=== PATIENT | female | born 1995 | race Caucasian/White ===

== ENCOUNTER 2016-04-26 04:30 | Inpatient (IN) | payer MEDICAID ==
--- NOTE | 2016-04-26 06:06 | L&D General Admission ---
General Admit Datetime Report Generated by CPN: 04/26/2016 04:45 INFORMATION Patient Age: 20 (04/25/2016 16:49:QS system process) EDC: 04/19/2016 00:00 (04/26/2016 03:15:Nhi Ayala RN) : 1 (04/26/2016 03:15:Nhi Ayala RN) Para: 0 (04/26/2016 03:15:Nhi Ayala RN) Term: 0 (04/26/2016 03:15:Nhi Ayala RN) : 0 (04/26/2016 03:15:Nhi Ayala RN) Spontaneous Abortions: 0 (04/26/2016 03:15:Nhi Ayala RN) Induced Abortions: 0 (04/26/2016 03:15:Nhi Ayala RN) Livin (04/26/2016 03:15:Nhi Ayala RN) Baby, Number in Womb: 1 (04/26/2016 03:15:Nhi Ayala RN) DEMOGRAPHICS Address: [address] [place] [id number] (04/25/2016 16:49:QS system process) Zipcode: [id number] (04/25/2016 16:49:QS system process) Home (04/25/2016 16:49:QS system process) SSN: [id number] (04/25/2016 16:49:QS system process) Next of Kin Name: YOSVANY VENTURA (04/25/2016 16:49:QS system process) Next of Kin (04/25/2016 16:49:QS system process) Next of Kin Relationship: OR (04/25/2016 16:49:QS system process) Date of : 1995 (04/25/2016 16:49:QS system process) Marital Status: Single (04/25/2016 16:49:QS system process) Sex: Female (04/25/2016 16:49:QS system process) Race: (04/25/2016 16:49:QS system process) Ethnicity: Non- or (04/25/2016 16:49:QS system process) LABS Blood Type: O Positive (04/26/2016 03:15:Nhi Ayala RN) Antibody Screen: negative (04/26/2016 03:15:Nhi Ayala RN) Group Beta Strep: negative (04/26/2016 03:15:Nhi Ayala RN) Gonorrhea: Negative (04/26/2016 03:15:Nhi Ayala RN) Chlamydia: Negative (04/26/2016 03:15:Nhi Ayala RN) RPR/VDRL: Nonreactive (04/26/2016 03:15:Nhi Ayala RN) HIV Results: nonreactive (04/26/2016 03:15:Nhi Ayala RN) Hepatitis B: Negative (04/26/2016 03:15:Nhi Ayala RN) Rubella: Immune (04/26/2016 03:15:Nhi Ayala RN) Varicella: Non Susceptible (04/26/2016 03:15:Nhi Ayala RN) MEDICAL HISTORY Details of Med/Surg Hx: 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
--- NOTE | 2016-04-26 06:06 | L&D Discharge Summary ---
OB Discharge Summary Datetime Report Generated by CPN: 04/26/2016 04:45 DISCHARGE DIAGNOSIS Number of Babies in Womb: 1 Parity: 0
--- NOTE | 2016-04-26 06:24 | L&D Current Admission ---
Current Admit Datetime Report Generated by CPN: 04/26/2016 06:00 ADMISSION INFORMATION Current Admit Date/Time: 04/26/2016 05:00 (04/26/2016 05:00:Suri Rascon RN) Reason for Admission: Rupture of Membranes; Induction of Labor (04/26/2016 05:00:Suri Rascon RN) Other Reason for Admission: Pt scheduled for induction 04/26/16, SROM at 0330 (04/26/2016 05:00:Suri Rascon RN) Chief Complaint: Suspected Rupture of Membranes (04/26/2016 05:00:Suri Rascon RN) Medications During : Vitamin (04/26/2016 05:00:Suri Rascon RN) EGA per Dates: 41.0 (04/26/2016 05:00:QS system process) Admitted From: Home (04/26/2016 05:00:Suri Rascon RN) Reason for Induction: Postterm (04/26/2016 05:00:Suri Rascon RN) Records Available: Yes (04/26/2016 05:00:Suri Rascon RN) General Admission Information: Reviewed; Updated; Confirmed (04/26/2016 05:00:Suri Rascon RN) General Admission Reviewed By: Jasmin Rascon RN (04/26/2016 05:00:Suri Rascon RN) BELONGINGS/ADVANCED DIRECTIVES Other Belongings: see [facility] belongings form (04/26/2016 05:00:Suri Rascon RN) Advance Direct for Healthcare: No, and Wants No Information (04/26/2016 05:00:Suri Rascon RN) Durable Power of Extract Mixer: No (04/26/2016 05:00:Suri Rascon RN) Living Will: No (04/26/2016 05:00:Suri Rascon RN) Organ Donor: Yes (04/26/2016 05:00:Suri Rascon RN) Pt Rights Information Given: Yes (04/26/2016 05:00:Suri Rascon RN) Pt Understands Pt Rights: No (04/26/2016 05:00:Suri Rascon RN) LEARNING ASSESSMENT Knowledge Level: Understands L_D Process (04/26/2016 05:00:Suri Rascon RN) Barriers to Learning: Emotional State; Pain (04/26/2016 05:00:Suri Rascon RN) Learning Readiness: Motivated (04/26/2016 05:00:Suri Rascon RN) Learns Best By: 1 to 1 Instruction (04/26/2016 05:00:Suri Rascon RN) Learning Needs: Labor and Delivery Process; Pain Management; Symptoms to Report; Treatment Plan; Medication; Diagnosis; Nutrition; Equipment; Infant Care (04/26/2016 05:00:Suri Rascon RN) DOMESTIC VIOLANCE SCREENING Dom Viol Threatened/Hurt: No (04/26/2016 05:00:Suri Rascon RN) Hx of Abuse/Neglect past 2yrs: No (04/26/2016 05:00:Suri Rascon RN) Feel Unsafe Going Home: No (04/26/2016 05:00:Suri Rascon RN) Addt'l Observ Indicating Abuse: No (04/26/2016 05:00:Suri Rascon RN) Reason Unable to Complete Screen: N/A, Screen Completed (04/26/2016 05:00:Suri Rascon RN) Considered Personal Harm/Suicide: No (04/26/2016 05:00:Suri Rascon RN) NUTRITIONAL/FUNCTIONAL SCREENING Problem with Appetite >5 Days: No (04/26/2016 05:00:Suri Rascon RN) Chew/Swallow Difficulties: No (04/26/2016 05:00:Suri Rascon RN) Inappropriate Wt Gain/Loss: No (04/26/2016 05:00:Suri Rascon RN) Presence Skin Breakdown/Ulcer: No (04/26/2016 05:00:Suri Rascon RN) Special Diet: No (04/26/2016 05:00:Suri Rascon RN) Pt Requests Advertising Strategist Visit: No (04/26/2016 05:00:Suri Rascon RN) Hx of Any of the Following?: N/A (04/26/2016 05:00:Suri Rascon RN) New Diagnosis of: N/A (04/26/2016 05:00:Suri Rascon RN) Requires Assist w/Ambulation: No (04/26/2016 05:00:Suri Rascon RN) Uses Assist Device to Ambulate: No (04/26/2016 05:00:Suri Rascon RN) Pt Requires Help w/ADL's: No (04/26/2016 05:00:Suri Rascon RN)
--- NOTE | 2016-04-26 06:24 | L&D General Admission ---
General Admit Datetime Report Generated by CPN: 04/26/2016 06:00 INFORMATION Patient Age: 20 (04/25/2016 16:49:QS system process) EDC: 04/19/2016 00:00 (04/26/2016 03:15:Nhi Ayala RN) : 1 (04/26/2016 03:15:Nhi Ayala RN) Para: 0 (04/26/2016 03:15:Nhi Ayala RN) Term: 0 (04/26/2016 03:15:Nhi Ayala RN) : 0 (04/26/2016 03:15:Nhi Ayala RN) Spontaneous Abortions: 0 (04/26/2016 03:15:Nhi Ayala RN) Induced Abortions: 0 (04/26/2016 03:15:Nhi Ayala RN) Livin (04/26/2016 03:15:Nhi Ayala RN) Baby, Number in Womb: 1 (04/26/2016 03:15:Nhi Ayala RN) CARE Primary Patient Navigator: [employer] (04/26/2016 03:15:Suri Rascon RN) Adequate Care: Yes (04/26/2016 03:15:Suri Rascon RN) Prepregnancy Weight (lb): 150 (04/26/2016 03:15:Suri Rascon RN) Prepregnancy Weight (kg): 68.2 (04/26/2016 03:15:Zulama system process) ALLERGIES Medication Allergy: Yes (04/26/2016 03:15:Rhoda Kim RN) Latex Allergy: Unknown (04/26/2016 03:15:Suri Rascon RN) COMMUNICATION Primary Language: Latvian (04/26/2016 03:15:Rhoda Kim RN) Medical Tx Preferred Language: Latvian (04/26/2016 03:15:Suri Rascon RN) Communication Barrier(s): None (04/26/2016 03:15:Rhoda Kim RN) DEMOGRAPHICS Address: [address] [place] [id number] (04/25/2016 16:49:QS system process) Zipcode: [phone] (04/25/2016 16:49:QS system process) Home (04/25/2016 16:49:QS system process) SSN: [id number] (04/25/2016 16:49:QS system process) Next of Kin Name: YOSVANY CHERY (04/25/2016 16:49:QS system process) Next of Kin (04/25/2016 16:49:QS system process) Next of Kin Relationship: OR (04/25/2016 16:49:QS system process) Date of : 1995 (04/25/2016 16:49:QS system process) Marital Status: Single (04/25/2016 16:49:QS system process) Sex: Female (04/25/2016 16:49:QS system process) Race: (04/25/2016 16:49:QS system process) Ethnicity: Non- or (04/25/2016 16:49:QS system process) DRUG AND ALCOHOL USE Alcohol: No (04/26/2016 03:15:Suri Rascon RN) Cigarettes: Never Smoker. [id number] (04/26/2016 03:15:Suri Rascon RN) Marijuana: No (04/26/2016 03:15:Suri Rascon RN) Cocaine: No (04/26/2016 03:15:Suri Rascon RN) Other Illicit Drugs: No (04/26/2016 03:15:Suri Rascon RN) VACCINE HISTORY Influenza Vaccine: No (04/26/2016 03:15:Suri Rascon RN) Pneumococcal Vaccine: No (04/26/2016 03:15:Suri Rascon RN) Tetanus Vaccine: Yes (04/26/2016 03:15:Suri Rascon RN) Tdap Vaccine: Yes (04/26/2016 03:15:Suri Rascon RN) Hepatitis B Vaccine: Yes (04/26/2016 03:15:Suri Rascon RN) Chemical Pathologist: Other (04/26/2016 03:15:Suri Rascon RN) Feeding Preference: Breast (04/26/2016 03:15:Suri Rascon RN) Benefit of Breast Feed Discussed: Yes (04/26/2016 03:15:Suri Rascon RN) Circumcision: Yes (04/26/2016 03:15:Suri Rascon RN) Classes Attended: No (04/26/2016 03:15:Suri Rascon RN) Tubal Ligation: No (04/26/2016 03:15:Suri Rascon RN) Tubal Authorization Signed: N/A (04/26/2016 03:15:Suri Rascon RN) Consent: N/A (04/26/2016 03:15:Suri Rascon RN) Consent Signed: N/A (04/26/2016 03:15:Suri Rascon RN) Pain Management Plans: Epidural (04/26/2016 03:15:Suri Rascon RN) Plans for Labor and Delivery: None (04/26/2016 03:15:Suri Rascon RN) Support Person: Rubin Chery (04/26/2016 03:15:Suri Rascon RN) Support Person Relationship: Significant Other (04/26/2016 03:15:Suri Rascon RN) Other Relationship: Boyfriend (04/26/2016 03:15:Suri Rascon RN) Cultural/Spritual Practice: No (04/26/2016 03:15:JOELLE Ruth Spir/Cult Dietary Needs: No (04/26/2016 03:15:Suri Rascon RN) LIVING SITUATION/DISCHARGE PLAN Living Arrangements: House (04/26/2016 03:15:Suri Rascon RN) Adequate Access to:: Electric; Heat; Refrigeration; Plumbing/Running water; Phone; Transportation (04/26/2016 03:15:Suri Rascon RN) WIC Program: Yes (04/26/2016 03:15:Suri Rascon RN) Discharge Software Asset Management Analyst Person: Rubin Chery (04/26/2016 03:15:Suri Rascon RN) Person to Help after Discharge: Rubin Chery (04/26/2016 03:15:Suri Rascon RN) Currently Using Commun Resources: Yes (04/26/2016 03:15:Suri Rascon RN) Car Seat for Discharge: Yes (04/26/2016 03:15:Suri Rascon RN) Adoption Requested: No (04/26/2016 03:15:Suri Rascon RN) Pt Contact w/infant Post : N/A (04/26/2016 03:15:Suri Rascon RN) LABS Blood Type: O Positive (04/26/2016 03:15:Nhi Ayala RN) Antibody Screen: negative (04/26/2016 03:15:Nhi Ayala RN) Group Beta Strep: negative (04/26/2016 03:15:Nhi Ayala RN) Gonorrhea: Negative (04/26/2016 03:15:Nhi Ayala RN) Chlamydia: Negative (04/26/2016 03:15:Nhi Ayala RN) RPR/VDRL: Nonreactive (04/26/2016 03:15:Nhi Ayala RN) HIV Results: nonreactive (04/26/2016 03:15:Nhi Ayala RN) Hepatitis B: Negative (04/26/2016 03:15:Nhi Ayala RN) Rubella: Immune (04/26/2016 03:15:Nhi Ayala RN) Varicella: Non Susceptible (04/26/2016 03:15:Nhi Ayala RN) OB/PREVIOUS HISTORY History of Previous : No (04/26/2016 03:15:Suri Rascon RN) History of Gestational Diabetes: No (04/26/2016 03:15:Suri Rascon RN) History of PIH: No (04/26/2016 03:15:Suri Rascon RN) History of Incompetent Cervix: No (04/26/2016 03:15:Suri Rascon RN) History of Placenta Previa/Abrup: No (04/26/2016 03:15:Suri Rascon RN) History of Macrosomia: No (04/26/2016 03:15:Suri Rascon RN) History of IUGR: No (04/26/2016 03:15:Suri Rascon RN) History of Hemorrhage: No (04/26/2016 03:15:Suri Rascon RN) History of Loss/Stillborn: No (04/26/2016 03:15:Suri Rascon RN) History of : No (04/26/2016 03:15:Suri Rascon RN) History of D (Rh) Sensitization: No (04/26/2016 03:15:Suri Rascon RN) History Recurrent Loss/Stillborn: No (04/26/2016 03:15:Suri Rascon RN) History Depression/PP Depression: No (04/26/2016 03:15:Suri Rascon RN) History of Uterine Anomaly/MORRO: No (04/26/2016 03:15:Suri Rascon RN) History of Infertility: No (04/26/2016 03:15:Suri Rascon RN) History of ART Treatment: No (04/26/2016 03:15:Suri Rascon RN) History of MORRO: No (04/26/2016 03:15:Suri Rascon RN) Comments Obstetrical History: G1: Current (04/26/2016 03:15:Suri Rascon RN) MEDICAL HISTORY Med Hx Diabetes: No (04/26/2016 03:15:Suri Rascon RN) Med Hx Hypertension: No (04/26/2016 03:15:Suri Rascon RN) Med Hx Heart Disease: No (04/26/2016 03:15:Suri Rascon RN) Med Hx Autoimmune Disorder: No (04/26/2016 03:15:Suri Rascon RN) Med Hx Kidney Disease/UTI: No (04/26/2016 03:15:Suri Rascon RN) Med Hx Neurologic/Epilepsy: No (04/26/2016 03:15:Suri Rascon RN) Med Hx Psychiatric Disorders: No (04/26/2016 03:15:Suri Rascon RN) Med Hx Hepatitis/Liver Disease: No (04/26/2016 03:15:Suri Rascon RN) Med Hx Varicosities/Phlebitis: No (04/26/2016 03:15:Suri Rascon RN) Med Hx Thyroid Dysfunction: No (04/26/2016 03:15:Suri Rascon RN) Med Hx Trauma/Violence: No (04/26/2016 03:15:Suri Rascon RN) Med Hx Blood Transfusion: No (04/26/2016 03:15:Suri Rascon RN) Med Hx Pulmonary (Asthma,TB): No (04/26/2016 03:15:Suri Rascon RN) Med Hx Breast: No (04/26/2016 03:15:Suri Rascon RN) Med Hx ABSEILING INSTRUCTOR Surgery: No (04/26/2016 03:15:Suri Rascon RN) Med Hx Hospitalization/Surgery: Yes (04/26/2016 03:15:Suri Rascon RN) Med Hx Anesthetic Complications: No (04/26/2016 03:15:Suri Rascon RN) Med Hx Abnormal Pap Smear: No (04/26/2016 03:15:Suri Rascon RN) Other Medical Diseases: No (04/26/2016 03:15:Suri Rascon RN) Med Hx Significant Family Hx: No (04/26/2016 03:15:Suri Rascon RN) Details of 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 (04/26/2016 03:15:Suri Rascon RN) INFECTIOUS HISTORY Inf Hx Gonorrhea: No (04/26/2016 03:15:Suri Rascon RN) Inf Hx Chlamydia: No (04/26/2016 03:15:Suri Rascon RN) Inf Hx Syphilis: No (04/26/2016 03:15:Suri Rascon RN) Inf Hx HIV/AIDS: No (04/26/2016 03:15:Suri Rascon RN) Inf Hx Human Papilloma Virus: No (04/26/2016 03:15:Suri Rascon RN) Inf Hx Pt/Partner Genital Herpes: No (04/26/2016 03:15:Suri Rascon RN) Inf Hx Tuberculosis/Exposure: No (04/26/2016 03:15:Suri Rascon RN) Inf Hx Hepatitis B,C: No (04/26/2016 03:15:Suri Rascon RN) Inf Hx Rash or Viral Illness: No (04/26/2016 03:15:Suri Rascon RN) GENETIC HISTORY Gen Hx Age >=35 at RONNY: No (04/26/2016 03:15:Suri Rascon RN) Gen Hx Thalassemia: No (04/26/2016 03:15:Suri Rascon RN) Gen Hx Congenital Heart Defect: No (04/26/2016 03:15:Suri Rascon RN) Gen Hx Neural Tube Defect: No (04/26/2016 03:15:Suri Rascon RN) Gen Hx Down's Syndrome: No (04/26/2016 03:15:Suri Rascon RN) Gen Hx Todd-Sachs: No (04/26/2016 03:15:Suri Rascon RN) Gen Hx Danis: No (04/26/2016 03:15:Suri Rascon RN) Gen Hx Familial Dysautonomia: No (04/26/2016 03:15:Suri Rascon RN) Gen Hx Sickle Cell Disease/Trait: No (04/26/2016 03:15:Suri Rascon RN) Gen Hx Hemophilia/Blood Disorder: No (04/26/2016 03:15:Suri Rascon RN) Gen Hx Muscular Dystrophy: No (04/26/2016 03:15:Suri Rascon RN) Gen Hx Cystic Fibrosis: No (04/26/2016 03:15:Suri Rascon RN) Gen Hx Huntingtons Chorea: No (04/26/2016 03:15:Suri Rascon RN) Gen Hx Mental Retardation/Autism: No (04/26/2016 03:15:Suri Rascon RN) Gen Hx Tested for Fragile X: No (04/26/2016 03:15:Suri Rascon RN) Gen Hx Other Inher/Chromosomal: No (04/26/2016 03:15:Suri Rascon RN) Gen Hx Maternal Metabolic DO: No (04/26/2016 03:15:Suri Rascon RN) Gen Hx Pt Father or FOB Defect: No (04/26/2016 03:15:Suri Rascon RN) Gen Hx Other Genetic History: No (04/26/2016 03:15:Suri Rascon RN) Gen Hx Drugs/Meds since LMP: Yes (04/26/2016 03:15:Suri Rascon RN) Gen Hx Medications: PNV (04/26/2016 03:15:Suri Rascon RN)
--- NOTE | 2016-04-26 08:00 | L&D Flow Sheet ---
LD Flowsheet Datetime Report Generated by CPN: 04/26/2016 08:00 Datetime: 04/26/2016 05:54 Monitor Mode: External (Suri Rascon, RN) Frequency (min): 3-5 (Suri Rascon, RN) Quality: Mild/Moderate (Suri Rascon, RN) Duration (sec): 50-110 (Suri Rascon, RN) Resting Tone (Palpate): Relaxed (Suri Rascon, RN) Monitor Mode: External US (Suri Rascon, RN) FHR Baseline Rate : 130 (Suri Abiodun, RN) Variability: Moderate 6-25 bpm (Suri Abiodun, RN) Accelerations: 10X10 (Suri Abiodun, RN) Decelerations: None (Suri Rascon, RN) Comments: Monitors discontinued; pt to ambulate 2nd floor until 0700, pt and family verbalize understanding of POC and safety measures (Annotations: Disregard previous strip charting done in error ) (Suri Rascon RN) Datetime: 04/26/2016 05:45 Monitor Mode: External (Suri Abiodun, RN) Frequency (min): 4-8 (Suri Abiodun, RN) Quality: Mild/Moderate (Suri Abiodun, RN) Duration (sec): 50-180 (Suri Abiodun, RN) Resting Tone (Palpate): Relaxed (Suri Abiodun, RN) Monitor Mode: External US (Suri Abiodun, RN) FHR Baseline Rate : 130 (Suri Abiodun, RN) Variability: Moderate 6-25 bpm (Suri Abiodun, RN) Accelerations: 15X15 (Suri Abiodun, RN) Decelerations: None (Suri Abiodun, RN) Datetime: 04/26/2016 05:43 Communication: Call/Page Placed to Provider; Report Given to @ Dr Woodson (Suri Rascon RN) Communication Comments: Report to Dr Woodson re: pt presence, SROM, scheduled induction, ctx pattern and SVE. Orders to ambulate pt until 0700 (Suri Abiodun, RN) Datetime: 04/26/2016 05:18 Dilatation (cm): 3.0 (Suri Rascon RN) Effacement (%): 70 (Suri Rascon, RN) Station: -1 (Suri Rascon, RN) Exam by: Jasmin Rascon RN (Suri Rascon, RN) Vaginal Bleeding: None (Suri Rascon RN) Cervix, Consistency: Moderate (Suri Rascon RN) Cervix, Position: Midposition (Suri Abiodun, RN) Datetime: 04/26/2016 05:15 Monitor Mode: External (Suri Rascon, RN) Frequency (min): 2-6 (Suri Rascon, RN) Quality: Mild/Moderate (Suri Abiodun, RN) Duration (sec): 60-120 (Suri Abiodun, RN) Resting Tone (Palpate): Relaxed (Suri Rascon RN) Monitor Mode: External US (Suri Abiodun, RN) FHR Baseline Rate : 130 (Suri Abiodun, RN) Variability: Moderate 6-25 bpm (Suri Abiodun, RN) Accelerations: 15X15 (Suri Abiodun, RN) Decelerations: None (Suri Abiodun, RN) IV/Blood Work: IV Started; IV Bolus Started; IV Bolus Given ml @ 400 (Suri Abiodun, RN) Datetime: 04/26/2016 05:02 Procedures: Consents Signed (Suri Abiodun, RN) Datetime: 04/26/2016 05:00 NBP Sys/Lissette/Mean (mmHg): 126 (QS system process) : 79 (QS system process) : 96 (QS system process) Pulse: 77 (QS system process) Respirations: 18 (Suri Abiodun, RN) Temperature (F): 98.7 (Suri Abiodun, RN) Temperature (C): 37.1 (QS system process) Frequency (min): unsure (Suri Abiodun, RN) Quality: Mild/Moderate (Suri Abiodun, RN) Pain Location: Back (Suri Rascon RN) Pain Coping: Breathing Through Contractions (Suri Rascon RN) Membrane Status: Ruptured (Suri Rascon RN) Membranes Ruptured Date/Time: 04/26/2016 03:30 (Suri Rascon RN) Membranes Rupture Method: Spontaneous (Suri Rascon RN) Amniotic Fluid Color: Clear (Suri Rascon RN) Amniotic Fluid Amount: Moderate (Suri Rascon RN) Amniotic Fluid Odor: Normal (Suri Rascon RN) Vaginal Bleeding: None (Suri Rascon RN) Level of Consciousness: Fully Conscious (uSri Rascon RN) DTR's/Clonus: DTRs 2+; No Clonus (Suri Rascon RN) Headache: Denies (Suri Rascon RN) Breath Sounds, Left: Clear and Equal (Suri Rascon RN) Breath Sounds, Right: Clear and Equal (Suri Rascon RN) Nausea/Vomiting: Denies (Suri Rascon RN) RUQ Epigastric Pain: Denies (Suri Rascon RN) Patient Position/Activity: Left Lateral (Suri Rascon RN) Comfort Measures: Breathing/Relaxation; Family Support (Suri Rascon RN) Instructional Method: Verbal; Patient Instructed; Family/Support Person Instructed; Verbalized Understanding (Suri Rascon RN) Plan of Care: Plan of Care Discussed; Vaginal Delivery; Induction (Suri Rascon RN) Unit Routine: [place] to Room; Call [place]; Bed (Suri Rascon RN) Labor/Induction: Induction (Suri Rascon RN) Datetime: 04/26/2016 04:54 IV/Blood Work: Labs Drawn (Suri Shepherdsel, RN) Datetime: 04/26/2016 04:50 NBP Sys/Lissette/Mean (mmHg): 134 (QS system process) : 82 (QS system process) : 103 (QS system process) Pulse: 75 (QS system process)
[2016-04-26 08:42] LABS: ABSOLUTE EOSINOPHILS # (AUTO) 0.1 10^3/uL (0.0-0.6); ABSOLUTE LYMPHOCYTES (AUTO) 2.3 10^3/uL (0.5-4.7); ABSOLUTE MONOCYTES (AUTO) 0.7 10^3/uL (0.1-1.4); ABSOLUTE NEUT (AUTO) 5.9 10^3/uL (1.7-8.2); BASOPHILS % (AUTO) 0.4 % (0-2); EOSINOPHILS % (AUTO) 0.7 % (0-6); HEMATOCRIT 37.6 % (36.0-47.0); HEMOGLOBIN 13.1 g/dL (12.0-15.5); HGB HCT DIFFERENCE 1.7; LYMPHOCYTES % (AUTO) 25.4 % (13-45); MEAN CORPUSCULAR HEMOGLOBIN 32.5 pg (27.0-33.4); MEAN CORPUSCULAR HGB CONC 34.8 g/dL (32.0-36.0); MEAN CORPUSCULAR VOLUME 93 fl (80-97); MONOCYTES % (AUTO) 7.8 % (3-13); RED BLOOD COUNT 4.03 10^6/uL (3.72-5.28); SEGMENTED NEUTROPHILS % (AUTO) 65.7 % (42-78); URINE BARBITURATES SCREEN NEGATIVE; URINE METHADONE SCREEN NEGATIVE; URINE PHENCYCLIDINE SCREEN NEGATIVE
[2016-04-26 08:46] LABS: APPEARANCE,URINE SLIGHTLY-CLOUDY; BILIRUBIN,URINE NEGATIVE (NEGATIVE); GLUCOSE, URINE NEGATIVE (NEGATIVE); KETONES,URINE NEGATIVE (NEGATIVE); LEUKOCYTE ESTERASE,URINE NEGATIVE (NEGATIVE); NITRITE,URINE NEGATIVE (NEGATIVE); PROTEIN,URINE NEGATIVE (NEGATIVE); URINE SPECIFIC GRAVITY 1.011; UROBILINOGEN,URINE NEGATIVE mg/dL (<2.0)
[2016-04-26] MEDS ORDERED: BENZOCAINE/MENTHOL AEROSOL SPRAY 56 ML TOP PRN (09:13)
[2016-04-26] MEDS ORDERED: OXYTOCIN/NORMAL SALINE 1,000 ML IV PRN (09:13)
[2016-04-26] MEDS ORDERED: ZOLPIDEM TARTRATE 5 MG TABLET PO PRN (09:13)
[2016-04-26] MEDS ORDERED: DIPH/PERTUSS(ACELL)/TETANUS VAC/PF 0.5 ML SYR (>=10YO) IM PRN (09:13)
[2016-04-26] MEDS ORDERED: MEASLES,MUMPS&RUBELLA VACC/PF 0.5 ML VIAL SUBCUT PRN (09:13)
[2016-04-26] MEDS ORDERED: DIBUCAINE 1% OINTMENT 28 GM TP PRN (09:13)
--- NOTE | 2016-04-26 11:00 | Delivery Summary ---
Del Sum A-C Datetime Report Generated by CPN: 04/26/2016 11:00 ADMISSION DATA Chief Complaint: Uterine Contractions; Suspected Ruptured Membranes Chief Complaint Comments: SROM at 0330, clear Admission Impression: Postterm, Intrauterine ; Active Labor Admit Provider Comments: rapid progression from 3cm to 9cm, precipitous labor DELIVERY PERSONNEL Delivery Doctor:: Diane Fuchs CNM Nurse Gta Certified:: Diane Fuchs CNM Labor and Delivery Nurse:: Kierra Reddy RNmobile home servicer Nurse:: Shweta Deleon RN Nursery Nurse:: Hermelinda Walker RN Proposal Director/RN DIALYSIS: Dianna Ogden, WOOD BORING MACHINE OPERATOR Proposal Director/RN DIALYSIS: Jackelyn Iraheta CNA II MATERNAL INFORMATION Delivery Anesthesia: None Medications After Delivery: Pitocin Drip 20 Units/1000ml NSS Maternal Complications: None Provider Comments: SVDVM DORA with loose nuchal cord, reduced. Tight shoulders, Leonor and suprapubic pressure used less than 10 sec. Infant vigorous, to mothers abd, cord clamped x 2 cut per pt mother. Placenta via villalobos spontaneous. 2* rt labial laceration repaired with chromic suture and lidocaine. 1*perineal repair not needed. Mother and stable. LABOR SUMMARY EDC: 04/19/2016 00:00 No. Babies in Womb: 1 Attempted: No Labor Anesthesia: None LABOR INFORMATION Reason for Induction: Not Applicable Onset of Labor: 04/26/2016 07:30 Complete Dilatation: 04/26/2016 08:14 Oxytocin: N/A Group B Beta Strep: negative Steroids Given: None Reason Steroids Not Administered: Not Applicable MEMBRANES Membranes Rupture Method: Spontaneous Rupture of Membranes: 04/26/2016 03:30 Length of Rupture (hr): 5.03 Amniotic Fluid Color: Clear Amniotic Fluid Amount: Moderate Amniotic Fluid Odor: Normal STAGES OF LABOR Stage 1 hr: 0 Stage 1 min: 44 Stage 2 hr: 0 Stage 2 min: 18 Stage 3 hr: 0 Stage 3 min: 8 Total Time in Labor hr: 1 Total Time in Labor min: 10 VAGINAL DELIVERY Episiotomy: None Laceration Extension: First Degree Laceration Type: Perineal Other Laceration: right labial 2* Laceration Repair: Yes Laceration Repair Note: 2.0 chromic rt labial 2*lac 1% lidocaine used Sponge Count Correct: N/A CSECTION DELIVERY Primary Indication: N/A Secondary Indication: N/A CSection Incidence: N/A Labor: N/A Elective: N/A CSection Incision: N/A BABY A INFORMATION Delivery Date/Time: 04/26/2016 08:32 Method of Delivery: Vaginal Born in Route : No : N/A Forceps: N/A Vacuum Extraction: N/A Shoulder Dystocia : Yes SHOULDER DYSTOCIA BABY A Delivery of Head: 04/26/2016 08:32 Time Head to Delivery : 0.0 1st Intervention to Resolve: McRobert's Maneuver 2nd Intervention to Resolve: Suprapubic Pressure Verify NO Fundal Pressure: No Fundal Pressure Applied Arm Under Symphisis at Del: Right PRESENTATION/POSITION BABY A Presentation: Cephalic Cephalic Presentation: Vertex Vertex Position: Left Occipital Anterior Breech Presentation: N/A PLACENTA INFORMATION BABY A Placenta Delivery Time : 04/26/2016 08:40 Placenta Method of Delivery: Spontaneous Placenta Status: Delivered SCORES BABY A Heart Rate 1 min: >100 bpm Resp Effort 1 min: Good Cry Reflex Irritability 1 min: Cough or Sneeze or Pulls Away Muscle Tone 1 min: Active Motion Color 1 min: Blue/Pale Resuscitation Effort 1 min: Tactile Stimulation SCORE 1 MIN: 8 Heart Rate 5 min: >100 bpm Resp Effort 5 min: Good Cry Reflex Irritability 5 min: Cough or Sneeze or Pulls Away Muscle Tone 5 min: Active Motion Color 5 min: Body [place], Extremities Blue SCORE 5 MIN: 9 INFANT INFORMATION BABY A Gestational Age at Delivery: 41.0 Gestational Status: Late Term- 41- 41.6 Weeks Outcome : Liveborn Condition : Stable Sex: Male IDENTIFICATION BABY A Infant Verification Date/Time: 04/26/2016 08:48 ID Band Number: [id number] Mother's Name Verified: Yes RN Verifying Infant: Kamar Gamez, RN/LRiver Monae, RN WEIGHT/LENGTH BABY A Infant Birthweight (gm): 3910 Infant Weight (lb): 8 Infant Weight (oz): 10 Length (in): 20.50 Length (cm): 52.07 CORD INFORMATION BABY A No. Cord Vessels: 3 Nuchal Cord : Around Neck x1, Loose Cord Blood Taken: Yes-For Eval (Mom's Blood Type - or O+) Suction: Mouth; Nose ASSESSMENT BABY A Infant Complications: Extended Bradycardia; Shoulder Dystocia Physical Findings at Delivery: Within Normal Limits Respirations: Appears Normal Skin to Skin: Yes Slip Feeder/ALS Called : No Infant Care By: Gutierrez Lomeli RN Transferred To: Remains with Mother BABY B INFORMATION : N/A SIGNATURES Assignment: Gail Thomson MD Signature: with User ID: [email or web address] : with User ID: [email or web address] : I was personally available for consultation and serving as supervising physician for the MLP.
--- NOTE | 2016-04-26 11:05 | Admission Physical ---
Datetime Report Generated by CPN: 04/26/2016 11:04 CURRENT ADMISSION Chief Complaint: Uterine Contractions; Suspected Ruptured Membranes Chief Complaint Other: SROM at 0330, clear Admit Plan: Admit to Unit; Initiate Labor Protocol ALLERGIES Medication Allergies: Yes Medication Allergies: Cephalosporins (04/26/2016) Latex: Unknown OBSTETRICAL HISTORY EDC: 04/19/2016 00:00 : 1 Para: 0 Term: 0 : 0 SAB: 0 IAB: 0 Livin Gestational Diabetes: No Rh Sensitization: No Incompetent Cervix: No MORRO: No Infertility: No ART Treatment: No Uterine Anomaly: No IUGR: No Hx Previous C/S: No Macrosomia: No Hx Loss/Stillborn: No PIH: No Hx : No Placenta Previa/Abruption: No Depression/PP Depression: No PTL/PROM: No Post Hemorrhage: No Obstetrical History Comments: G1: Current SEE RECORDS Alcohol: No Marijuana : No Cocaine: No Other Illicit Drugs: No Cigarettes: Never Smoker. 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 INFECTIOUS HISTORY Gonorrhea: No Genital Herpes: No Chlamydia: No Tuberculosis: No Syphilis: No Hepatitis: No HIV/AIDS Exposure: No Rash or Viral Illness: No HPV: No PHYSICAL EXAM General: Normal HEENT: Deferred Neurologic: Normal Thyroid: Deferred Heart: Normal Lungs: Normal Breast: Deferred Back: Deferred Abdomen: Normal Genitourinary Exam: Normal Extremities: Deferred DTRs: Deferred Pelvic Type: Adequate Vital Signs: Reviewed VAGINAL EXAM Dilatation: 10 Effacement: 10 Station: 2 MEMBRANES Membranes: Ruptured FETUS A EGA: 41.0 Monitoring: External US FHR- Baseline: 125 Variability: Moderate 6-25bpm Accelerations: 15X15 Decelerations: None Presentation: Vertex Admit Comment: rapid progression from 3cm to 9cm, precipitous labor PLANS FOR LABOR AND DELIVERY Labor and Delivery: None Pain Management: Epidural Feeding Preference: Breast Benefit of Breast Feed Discussed: Yes Circumcision: Yes INFORMED CONSENT Assignment: Gail Thomson MD Signature: with User ID: Jeffrey : with User ID: Jeffrey
--- NOTE | 2016-04-26 12:01 | L&D Flow Sheet ---
LD Flowsheet Datetime Report Generated by CPN: 04/26/2016 12:00 Datetime: 04/26/2016 10:16 NBP Sys/Lissette/Mean (mmHg): 113 (QS system process) : 62 (QS system process) : 83 (QS system process) Pulse: 71 (QS system process) Datetime: 04/26/2016 10:01 NBP Sys/Lissette/Mean (mmHg): 115 (QS system process) : 60 (QS system process) : 80 (QS system process) Pulse: 70 (QS system process) Datetime: 04/26/2016 09:46 NBP Sys/Lissette/Mean (mmHg): 117 (QS system process) : 61 (QS system process) : 82 (QS system process) Pulse: 74 (QS system process) Datetime: 04/26/2016 09:31 Stage of : Recovery (Kierra Reddy [facility]) NBP Sys/Lissette/Mean (mmHg): 122 (QS system process) : 61 (QS system process) : 88 (QS system process) Pulse: 90 (QS system process) Respirations: 17 (Kierra Reddy [facility]) Pain Scale: 0 (Kierra Reddy [facility]) Datetime: 04/26/2016 09:16 Stage of : Recovery (Kierra Reddy, [facility]) NBP Sys/Lissette/Mean (mmHg): 124 (QS system process) : 63 (QS system process) : 88 (QS system process) Pulse: 73 (QS system process) Pain Scale: 0 (Kierra Barry, [facility]) Datetime: 04/26/2016 09:01 Stage of : Recovery (Kierra Reddy, [facility]) NBP Sys/Lissette/Mean (mmHg): 121 (QS system process) : 62 (QS system process) : 84 (QS system process) Pulse: 70 (QS system process) Respirations: 17 (Kierra Barry, [facility]) Pain Scale: 0 (Kierra Barry, [facility]) Datetime: 04/26/2016 08:46 Stage of : Recovery (Kierra Barry, [facility]) NBP Sys/Lissette/Mean (mmHg): 117 (QS system process) : 70 (QS system process) : 83 (QS system process) Pulse: 87 (QS system process) Respirations: 17 (Kierra Reddy [facility]) Temperature (F): 98.0 (Kierra Reddy [facility]) Temperature (C): 36.7 (QS system process) Temperature Route: Oral (Kierra Reddy [facility]) Pain Scale: 0 (Kierra Reddy [facility]) Pain Presence: None/Denies (Kierra Reddy [facility]) Datetime: 04/26/2016 08:40 Respirations: 17 (Kierra Reddy, [facility]) Pain Scale: 2 (Kierra Reddy, [facility]) Pain Presence: Constant (Kierra Reddy, [facility]) Pain Type: Burning (Kierra Reddy, [facility]) Pain Location: Perineum (Kierra Reddy, [facility]) Pain Relief Measures: Comfort Measures (Kierra Reddy, [facility]) Datetime: 04/26/2016 08:30 Contraction Comments: RN at BS, monitoring FHR and contractions. (Kierra Reddy [facility]) Comments: RN at BS, monitoring FHR and contractions. (Kierra Reddy [facility]) Stage 2 Comments: Dr. Dumont at bedside (Kierra Reddy [facility]) Datetime: 04/26/2016 08:26 Patient Position/Activity: Right Lateral (Kierra Reddy, [facility]) Datetime: 04/26/2016 08:23 Comments: 10L oxygen applied via non rebreather mask (Kierra Reddy [facility]) Patient Position/Activity: Left Tilt (Kierra Reddy, [facility]) Datetime: 04/26/2016 08:18 Pushing: Coached on Pushing (Kierra Barry, [facility]) Datetime: 04/26/2016 08:15 Monitor Mode: External; Palpation (Kierra Barry, [facility]) Frequency (min): 2-4 (Kierra Barry, [facility]) Quality: Moderate to Strong (Kierra Barry, [facility]) Duration (sec): 50-120 (Kierra Barry, [facility]) Duration Criteria: Less than Two 120 Second Contractions (Kierra Barry, [facility]) Pattern: Normal: <= 5 Contractions in 10 Minutes (Kierra Barry, [facility]) Resting Tone (Palpate): Relaxed (Kierra Barry, [facility]) Monitor Mode: External US (Kierra Barry, [facility]) FHR Baseline Rate : 125 (Kierra Barry, [facility]) Variability: Moderate 6-25 bpm (Kierra Barry, [facility]) Accelerations: None (Kierra Barry, [facility]) Decelerations: None (Kierra Barry, [facility]) Datetime: 04/26/2016 08:14 Dilatation (cm): 10.0 (FANTASMA Dhaliwal) Effacement (%): 100 (FANTASMA Dhaliwal) Station: 2 (FANTASMA Dhaliwal) Exam by: Es Fuchs CNM (Kierra Reddy [facility]) Datetime: 04/26/2016 08:12 Stage 2 Comments: Es Fuchs CNM at bedside (FANTASMA Dhaliwal) Datetime: 04/26/2016 08:00 Monitor Mode: External; Palpation (FANTASMA Dhaliwal) Frequency (min): 2-4 (FANTASMA Dhaliwal) Quality: Moderate to Strong (FANTASMA Dhaliwal) Duration (sec): 60-120 (FANTASMA Dhaliwal) Duration Criteria: Less than Two 120 Second Contractions (FANTASMA Dhaliwal) Pattern: Normal: <= 5 Contractions in 10 Minutes (FANTASMA Dhaliwal) Resting Tone (Palpate): Relaxed (FANTASMA Dhaliwal) Monitor Mode: External US (FANTASMA Dhaliwal) FHR Baseline Rate : 125 (FANTASMA Dhaliwal) Variability: Moderate 6-25 bpm (FANTASMA Dhaliwal) Accelerations: 15X15 (FANTASMA Dhaliwal) Decelerations: None (FANTASMA Dhaliwal)
[2016-04-26] MEDS: DOCUSATE SODIUM 100 MG CAPSULE PO SCH ×2 (13:33→17:36)
[2016-04-26] MEDS: PRENATAL VITAMIN W-O CA NO5/FE FUMARATE/FA CAPSULE PO SCH (13:34)
[2016-04-26] MEDS: SENNOSIDES/DOCUSATE 8.6-50 MG 1 EACH TABLET PO SCH (13:34)
[2016-04-26] MEDS: FERROUS SULFATE 325 MG TABLET PO SCH ×2 (13:34→17:36)
[2016-04-26] MEDS: IBUPROFEN 800 MG TABLET PO SCH ×2 (13:40→21:07)
--- NOTE | 2016-04-26 19:00 | L&D Flow Sheet ---
LD Flowsheet Datetime Report Generated by CPN: 04/26/2016 19:00 Datetime: 04/26/2016 10:16 NBP Sys/Lissette/Mean (mmHg): 113 (QS system process) : 62 (QS system process) : 83 (QS system process) Pulse: 71 (QS system process) Datetime: 04/26/2016 10:01 NBP Sys/Lissette/Mean (mmHg): 115 (QS system process) : 60 (QS system process) : 80 (QS system process) Pulse: 70 (QS system process) Datetime: 04/26/2016 09:46 NBP Sys/Lissette/Mean (mmHg): 117 (QS system process) : 61 (QS system process) : 82 (QS system process) Pulse: 74 (QS system process) Datetime: 04/26/2016 09:31 Stage of : Recovery (Kierra Reddy [facility]) NBP Sys/Lissette/Mean (mmHg): 122 (QS system process) : 61 (QS system process) : 88 (QS system process) Pulse: 90 (QS system process) Respirations: 17 (Kierra Reddy [facility]) Pain Scale: 0 (Kierra Reddy [facility]) Datetime: 04/26/2016 09:16 Stage of : Recovery (Kierra Reddy, [facility]) NBP Sys/Lissette/Mean (mmHg): 124 (QS system process) : 63 (QS system process) : 88 (QS system process) Pulse: 73 (QS system process) Pain Scale: 0 (Kierra Barry, R[facility]) Datetime: 04/26/2016 09:01 Stage of : Recovery (Kierra Reddy, [facility]) NBP Sys/Lissette/Mean (mmHg): 121 (QS system process) : 62 (QS system process) : 84 (QS system process) Pulse: 70 (QS system process) Respirations: 17 (Kierra Barry, RNC) Pain Scale: 0 (Kierra Barry, [facility]) Datetime: 04/26/2016 08:46 Stage of : Recovery (Kierra Barry, [facility]) NBP Sys/Lissette/Mean (mmHg): 117 (QS system process) : 70 (QS system process) : 83 (QS system process) Pulse: 87 (QS system process) Respirations: 17 (Kierra Reddy [facility]) Temperature (F): 98.0 (Kierra Reddy [facility]) Temperature (C): 36.7 (QS system process) Temperature Route: Oral (Kierra Reddy [facility]) Pain Scale: 0 (Kierra Reddy [facility]) Pain Presence: None/Denies (Kierra Reddy [facility]) Datetime: 04/26/2016 08:40 Respirations: 17 (Kierra Reddy, [facility]) Pain Scale: 2 (Kierra Reddy, [facility]) Pain Presence: Constant (Kierra Reddy, [facility]) Pain Type: Burning (Kierra Reddy, [facility]) Pain Location: Perineum (Kierra Reddy, [facility]) Pain Relief Measures: Comfort Measures (Kierra Reddy, RNC) Datetime: 04/26/2016 08:30 Contraction Comments: RN at BS, monitoring FHR and contractions. (Kierra Reddy [facility]) Comments: RN at BS, monitoring FHR and contractions. (Kierra Reddy [facility]) Stage 2 Comments: Dr. Dumont at bedside (Kierra Reddy [facility]) Datetime: 04/26/2016 08:26 Patient Position/Activity: Right Lateral (Kierra Reddy, RNC) Datetime: 04/26/2016 08:23 Comments: 10L oxygen applied via non rebreather mask (Kierra Reddy [facility]) Patient Position/Activity: Left Tilt (Kierra Reddy, RNC) Datetime: 04/26/2016 08:18 Pushing: Coached on Pushing (Kierra Barry, RNC) Datetime: 04/26/2016 08:15 Monitor Mode: External; Palpation (Kierra Barry, RNC) Frequency (min): 2-4 (Kierra Barry, R[facility]) Quality: Moderate to Strong (Kierra Barry, RNC) Duration (sec): 50-120 (Kierra Brary, RNC) Duration Criteria: Less than Two 120 Second Contractions (Kierra Barry, RNC) Pattern: Normal: <= 5 Contractions in 10 Minutes (Kierra Barry, R[facility]) Resting Tone (Palpate): Relaxed (Kierra Barry, RNC) Monitor Mode: External US (Kierra Barry, R[facility]) FHR Baseline Rate : 125 (Kierra Barry, RNC) Variability: Moderate 6-25 bpm (Kierra Barry, RNC) Accelerations: None (Kierra Barry, RNC) Decelerations: None (Kierra Barry, [facility]) Datetime: 04/26/2016 08:14 Dilatation (cm): 10.0 (FANTASMA Dhaliwal) Effacement (%): 100 (FANTASMA Dhaliwal) Station: 2 (FANTASMA Dhaliwal) Exam by: Es Fuchs CNM (Kierra Reddy [facility]) Datetime: 04/26/2016 08:12 Stage 2 Comments: Es Fuchs CNM at bedside (FANTASMA Dhaliwal) Datetime: 04/26/2016 08:00 Monitor Mode: External; Palpation (FANTASMA Dhaliwal) Frequency (min): 2-4 (FANTASMA Dhaliwal) Quality: Moderate to Strong (FANTASMA Dhaliwal) Duration (sec): 60-120 (FANTASMA Dhaliwal) Duration Criteria: Less than Two 120 Second Contractions (FANTASMA Dhaliwal) Pattern: Normal: <= 5 Contractions in 10 Minutes (FANTASMA Dhaliwal) Resting Tone (Palpate): Relaxed (FANTASMA Dhaliwal) Monitor Mode: External US (FANTASMA Dhaliwal) FHR Baseline Rate : 125 (Kierra Reddy [facility]) Variability: Moderate 6-25 bpm (Kierra Reddy [facility]) Accelerations: 15X15 (Kierra Reddy R[facility]) Decelerations: None (Kierra Reddy R[facility]) Datetime: 04/26/2016 07:57 Dilatation (cm): 9.0 (Kierra Reddy, [facility]) Effacement (%): 100 (Kierra Reddy [facility]) Station: 0 (Kierra Reddy [facility]) Exam by: Es Reddy CNThang (Kierra Reddy, [facility]) Datetime: 04/26/2016 07:27 Communication Comments: Monitors applied to abdomen. (FANTASMA Dhaliwal)
[2016-04-27] MEDS: IBUPROFEN 800 MG TABLET PO SCH ×3 (05:13→21:05)
--- NOTE | 2016-04-27 06:25 | L&D General Admission ---
General Admit Datetime Report Generated by CPN: 04/27/2016 06:00 INFORMATION Patient Age: 20 (04/25/2016 16:49:QS system process) EDC: 04/19/2016 00:00 (04/26/2016 03:15:Nhi Ayala RN) : 1 (04/26/2016 03:15:Nhi Ayala RN) Para: 0 (04/26/2016 03:15:Nhi Ayala RN) Term: 0 (04/26/2016 03:15:Nhi Ayala RN) : 0 (04/26/2016 03:15:Nhi Ayala RN) Spontaneous Abortions: 0 (04/26/2016 03:15:Nhi yAala RN) Induced Abortions: 0 (04/26/2016 03:15:Nhi Ayala RN) Livin (04/26/2016 03:15:Nhi Ayala RN) Baby, Number in Womb: 1 (04/26/2016 03:15:Nhi Ayala RN) CARE Primary Copy Cutter: [facility] (04/26/2016 03:15:Suri Rascon RN) Adequate Care: Yes (04/26/2016 03:15:Suri Rascon RN) Prepregnancy Weight (lb): 150 (04/26/2016 03:15:Suri Rascon RN) Prepregnancy Weight (kg): 68.2 (04/26/2016 03:15:QS system process) Height (in): 65 (04/26/2016 10:15:QS system process) ALLERGIES Medication Allergy: Yes (04/26/2016 03:15:Rhoda Kim RN) Medication Allergies: Cephalosporins (04/26/2016) (04/26/2016 10:15:QS system process) Latex Allergy: Unknown (04/26/2016 03:15:Suri Rascon RN) COMMUNICATION Primary Language: Romansh (04/26/2016 03:15:Rhoda Kim RN) Medical Tx Preferred Language: Romansh (04/26/2016 03:15:Suri Rascon RN) Communication Barrier(s): None (04/26/2016 03:15:Rhoda Kim RN) DEMOGRAPHICS Address: [address] [place] [id number] (04/25/2016 16:49:QS system process) Zipcode: [phone] (04/25/2016 16:49:QS system process) Home (04/25/2016 16:49:QS system process) SSN: [id number] (04/25/2016 16:49:QS system process) Next of Kin Name: YOSVANY CHERY (04/25/2016 16:49:QS system process) Next of Kin (04/25/2016 16:49:QS system process) Next of Kin Relationship: OR (04/25/2016 16:49:QS system process) Date of : 1995 (04/25/2016 16:49:QS system process) Marital Status: Single (04/25/2016 16:49:QS system process) Sex: Female (04/25/2016 16:49:QS system process) Race: (04/25/2016 16:49:QS system process) Ethnicity: Non- or (04/25/2016 16:49:QS system process) Christianity: None (04/26/2016 08:12:QS system process) DRUG AND ALCOHOL USE Alcohol: No (04/26/2016 03:15:Suri Rascon RN) Cigarettes: Never Smoker. [id number] (04/26/2016 03:15:Suri Rascon RN) Marijuana: No (04/26/2016 03:15:Suri Rascon RN) Cocaine: No (04/26/2016 03:15:Suri Rascon RN) Other Illicit Drugs: No (04/26/2016 03:15:Suri Rascon RN) VACCINE HISTORY Influenza Vaccine: No (04/26/2016 03:15:Suri Rascon RN) Pneumococcal Vaccine: No (04/26/2016 03:15:Suri Rascon RN) Tetanus Vaccine: Yes (04/26/2016 03:15:Suri Rascon RN) Tdap Vaccine: Yes (04/26/2016 03:15:Suri Rascon RN) Hepatitis B Vaccine: Yes (04/26/2016 03:15:Suri Rascon RN) Results Technician: Other (04/26/2016 03:15:Suri Rascon RN) Feeding Preference: Breast (04/26/2016 03:15:Suri Rascon RN) Benefit of Breast Feed Discussed: Yes (04/26/2016 03:15:Suri Rascon RN) Circumcision: Yes (04/26/2016 03:15:Suri Rascon RN) Classes Attended: No (04/26/2016 03:15:Suri Rascon RN) Tubal Ligation: No (04/26/2016 03:15:Suri Rascon RN) Tubal Authorization Signed: N/A (04/26/2016 03:15:Suri Rascon RN) Consent: N/A (04/26/2016 03:15:Suri Rascon RN) Consent Signed: N/A (04/26/2016 03:15:Suri Rascon RN) Pain Management Plans: Epidural (04/26/2016 03:15:Suri Rascon RN) Plans for Labor and Delivery: None (04/26/2016 03:15:Suri Rascon RN) Support Person: Rubin Chery (04/26/2016 03:15:Suri Rascon RN) Support Person Relationship: Significant Other (04/26/2016 03:15:Suri Rascon RN) Other Relationship: Boyfriend (04/26/2016 03:15:Suri Rascon RN) Cultural/Spritual Practice: No (04/26/2016 03:15:Suri Rascon RN) Spir/Cult Dietary Needs: No (04/26/2016 03:15:Suri Rascon RN) LIVING SITUATION/DISCHARGE PLAN Living Arrangements: House (04/26/2016 03:15:Suri Rascon RN) Adequate Access to:: Electric; Heat; Refrigeration; Plumbing/Running water; Phone; Transportation (04/26/2016 03:15:Suri Rascon RN) WIC Program: Yes (04/26/2016 03:15:Suri Rascon RN) 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: Rubin Chery (04/26/2016 03:15:Suri Rascon RN) Person to Help after Discharge: Rubin Chery (04/26/2016 03:15:Suri Rascon RN) Currently Using Commun Resources: Yes (04/26/2016 03:15:Suri Rascon RN) Car Seat for Discharge: Yes (04/26/2016 03:15:Suri Rascon RN) Adoption Requested: No (04/26/2016 03:15:Suri Rascon RN) Pt Contact w/ Post : N/A (04/26/2016 03:15:Suri Rascon RN) LABS Blood Type: O Positive (04/26/2016 03:15:Nhi Ayala RN) Antibody Screen: negative (04/26/2016 03:15:Nhi Ayala RN) Hemoglobin: 13.1 (04/26/2016 04:58:QS system process) Hematocrit: 37.6 (04/26/2016 04:58:QS system process) MCV: 93 (04/26/2016 04:58:QS system process) Group Beta Strep: negative (04/26/2016 03:15:Nhi Ayala RN) Gonorrhea: Negative (04/26/2016 03:15:Nhi Ayala RN) Chlamydia: Negative (04/26/2016 03:15:Nhi Ayala RN) RPR/VDRL: Nonreactive (04/26/2016 03:15:Nhi Ayala RN) HIV Results: nonreactive (04/26/2016 03:15:Nhi Ayala RN) Hepatitis B: Negative (04/26/2016 03:15:Nhi Ayala RN) Rubella: Immune (04/26/2016 03:15:Nhi Ayala RN) Varicella: Non Susceptible (04/26/2016 03:15:Nhi Ayala RN) OB/PREVIOUS HISTORY History of Previous : No (04/26/2016 03:15:Suri Rascon RN) History of Gestational Diabetes: No (04/26/2016 03:15:Suri Rascon RN) History of PIH: No (04/26/2016 03:15:Suri Rascon RN) History of Incompetent Cervix: No (04/26/2016 03:15:Suri Rascon RN) History of Placenta Previa/Abrup: No (04/26/2016 03:15:Suri Rascon RN) History of Macrosomia: No (04/26/2016 03:15:Suri Rascon RN) History of IUGR: No (04/26/2016 03:15:Suri Rascon RN) History of Hemorrhage: No (04/26/2016 03:15:Suri Rascon RN) History of Loss/Stillborn: No (04/26/2016 03:15:Suri Rascon RN) History of : No (04/26/2016 03:15:Suri Rascon RN) History of D (Rh) Sensitization: No (04/26/2016 03:15:Suri Rascon RN) History Recurrent Loss/Stillborn: No (04/26/2016 03:15:Suri Rascon RN) History Depression/PP Depression: No (04/26/2016 03:15:Suri Rascon RN) History of Uterine Anomaly/MORRO: No (04/26/2016 03:15:Suri Rascon RN) History of Infertility: No (04/26/2016 03:15:Suri Rascon RN) History of ART Treatment: No (04/26/2016 03:15:Suri Rascon RN) History of MORRO: No (04/26/2016 03:15:Suri Rascon RN) Comments Obstetrical History: G1: Current (04/26/2016 03:15:Suri Rascon RN) MEDICAL HISTORY Med Hx Diabetes: No (04/26/2016 03:15:Suri Rascon RN) Med Hx Hypertension: No (04/26/2016 03:15:Suri Rascon RN) Med Hx Heart Disease: No (04/26/2016 03:15:Suri Rascon RN) Med Hx Autoimmune Disorder: No (04/26/2016 03:15:Suri Rascon RN) Med Hx Kidney Disease/UTI: No (04/26/2016 03:15:Suri Rascon RN) Med Hx Neurologic/Epilepsy: No (04/26/2016 03:15:Suri Rascon RN) Med Hx Psychiatric Disorders: No (04/26/2016 03:15:Suri Rascon RN) Med Hx Hepatitis/Liver Disease: No (04/26/2016 03:15:Suri Rascon RN) Med Hx Varicosities/Phlebitis: No (04/26/2016 03:15:Suri Rascon RN) Med Hx Thyroid Dysfunction: No (04/26/2016 03:15:Suri Rascon RN) Med Hx Trauma/Violence: No (04/26/2016 03:15:Suri Rascon RN) Med Hx Blood Transfusion: No (04/26/2016 03:15:Suri Rascon RN) Med Hx Pulmonary (Asthma,TB): No (04/26/2016 03:15:Suri Rascon RN) Med Hx Breast: No (04/26/2016 03:15:Suri Rascon RN) Med Hx SENIOR ENLISTED ADVISOR Surgery: No (04/26/2016 03:15:Suri Rascon RN) Med Hx Hospitalization/Surgery: Yes (04/26/2016 03:15:Suri Rascon RN) Med Hx Anesthetic Complications: No (04/26/2016 03:15:Suri Rascon RN) Med Hx Abnormal Pap Smear: No (04/26/2016 03:15:Suri Rascon RN) Other Medical Diseases: No (04/26/2016 03:15:Suri Rascon RN) Med Hx Significant Family Hx: No (04/26/2016 03:15:Suri Rascon RN) Details of 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 (04/26/2016 03:15:Suri Rascon RN) INFECTIOUS HISTORY Inf Hx Gonorrhea: No (04/26/2016 03:15:Suri Rascon RN) Inf Hx Chlamydia: No (04/26/2016 03:15:Suri Rascon RN) Inf Hx Syphilis: No (04/26/2016 03:15:Suri Rascon RN) Inf Hx HIV/AIDS: No (04/26/2016 03:15:Suri Rascon RN) Inf Hx Human Papilloma Virus: No (04/26/2016 03:15:Suri Rascon RN) Inf Hx Pt/Partner Genital Herpes: No (04/26/2016 03:15:Suri Rascon RN) Inf Hx Tuberculosis/Exposure: No (04/26/2016 03:15:Suri Rascon RN) Inf Hx Hepatitis B,C: No (04/26/2016 03:15:Suri Rascon RN) Inf Hx Rash or Viral Illness: No (04/26/2016 03:15:Suri Rascon RN) GENETIC HISTORY Gen Hx Age >=35 at RONNY: No (04/26/2016 03:15:Suri Rascon RN) Gen Hx Thalassemia: No (04/26/2016 03:15:Suri Rascon RN) Gen Hx Congenital Heart Defect: No (04/26/2016 03:15:Suri Rascon RN) Gen Hx Neural Tube Defect: No (04/26/2016 03:15:Suri Rascon RN) Gen Hx Down's Syndrome: No (04/26/2016 03:15:Suri Rascon RN) Gen Hx Todd-Sachs: No (04/26/2016 03:15:Suri Rascon RN) Gen Hx Danis: No (04/26/2016 03:15:Suri Rascon RN) Gen Hx Familial Dysautonomia: No (04/26/2016 03:15:Suri Rascon RN) Gen Hx Sickle Cell Disease/Trait: No (04/26/2016 03:15:Suri Rascon RN) Gen Hx Hemophilia/Blood Disorder: No (04/26/2016 03:15:Suri Rascon RN) Gen Hx Muscular Dystrophy: No (04/26/2016 03:15:Suri Rascon RN) Gen Hx Cystic Fibrosis: No (04/26/2016 03:15:Suri Rascon RN) Gen Hx Huntingtons Chorea: No (04/26/2016 03:15:Suri Rascon RN) Gen Hx Mental Retardation/Autism: No (04/26/2016 03:15:Suri Rascon RN) Gen Hx Tested for Fragile X: No (04/26/2016 03:15:Suri Rascon RN) Gen Hx Other Inher/Chromosomal: No (04/26/2016 03:15:Suri Rascon RN) Gen Hx Maternal Metabolic DO: No (04/26/2016 03:15:Suri Rascon RN) Gen Hx Pt Father or FOB Defect: No (04/26/2016 03:15:Suri Rascon RN) Gen Hx Other Genetic History: No (04/26/2016 03:15:Suri Rascon RN) Gen Hx Drugs/Meds since LMP: Yes (04/26/2016 03:15:Suri Rascon RN) Gen Hx Medications: PNV (04/26/2016 03:15:Suri Rascon RN)
--- NOTE | 2016-04-27 06:25 | L&D Current Admission ---
Current Admit Datetime Report Generated by CPN: 04/27/2016 06:00 ADMISSION INFORMATION Current Admit Date/Time: 04/26/2016 05:00 (04/26/2016 05:00:Suri Rascon RN) Reason for Admission: Rupture of Membranes; Induction of Labor (04/26/2016 05:00:Suri Rascon RN) Other Reason for Admission: Pt scheduled for induction 04/26/16, SROM at 0330 (04/26/2016 05:00:Suri Rascon RN) Chief Complaint: Suspected Rupture of Membranes (04/26/2016 05:00:Suri Rascon RN) Medications During : Vitamin (04/26/2016 05:00:Suri Rascon RN) EGA per Dates: 41.0 (04/26/2016 05:00:QS system process) Admitted From: Home (04/26/2016 05:00:Suri Rascon RN) Reason for Induction: Postterm (04/26/2016 05:00:Suri Rascon RN) Records Available: Yes (04/26/2016 05:00:Suri Rascon RN) General Admission Information: Reviewed; Updated; Confirmed (04/26/2016 05:00:Suri Rascon RN) General Admission Reviewed By: Jasmin Rascon RN (04/26/2016 05:00:Suri Rascon RN) BELONGINGS/ADVANCED DIRECTIVES Other Belongings: see [facility] belongings form (04/26/2016 05:00:Suri Rascon RN) Advance Direct for Healthcare: No, and Wants No Information (04/26/2016 05:00:Suri Rascon RN) Durable Power of Thread Winder Automatic: No (04/26/2016 05:00:Suri Rascon RN) Living Will: No (04/26/2016 05:00:Suri Rascon RN) Organ Donor: Yes (04/26/2016 05:00:Suri Rascon RN) Pt Rights Information Given: Yes (04/26/2016 05:00:Suri Rascon RN) Pt Understands Pt Rights: No (04/26/2016 05:00:Suri Rascon RN) LEARNING ASSESSMENT Knowledge Level: Understands L_D Process (04/26/2016 05:00:Suri Rascon RN) Barriers to Learning: Emotional State; Pain (04/26/2016 05:00:Suri Rascon RN) Learning Readiness: Motivated (04/26/2016 05:00:Suri Rascon RN) Learns Best By: 1 to 1 Instruction (04/26/2016 05:00:Suri Rascon RN) Learning Needs: Labor and Delivery Process; Pain Management; Symptoms to Report; Treatment Plan; Medication; Diagnosis; Nutrition; Equipment; Infant Care (04/26/2016 05:00:Suri Rascon RN) DOMESTIC VIOLANCE SCREENING Dom Viol Threatened/Hurt: No (04/26/2016 05:00:Suri Rascon RN) Hx of Abuse/Neglect past 2yrs: No (04/26/2016 05:00:Suri Rascon RN) Feel Unsafe Going Home: No (04/26/2016 05:00:Suri Rascon RN) Addt'l Observ Indicating Abuse: No (04/26/2016 05:00:Suri Rascon RN) Reason Unable to Complete Screen: N/A, Screen Completed (04/26/2016 05:00:Suri Rascon RN) Considered Personal Harm/Suicide: No (04/26/2016 05:00:Suri Rascon RN) NUTRITIONAL/FUNCTIONAL SCREENING Problem with Appetite >5 Days: No (04/26/2016 05:00:Suri Rascon RN) Chew/Swallow Difficulties: No (04/26/2016 05:00:Suri Rascon RN) Inappropriate Wt Gain/Loss: No (04/26/2016 05:00:Suri Rascon RN) Presence Skin Breakdown/Ulcer: No (04/26/2016 05:00:Suri Rascon RN) Special Diet: No (04/26/2016 05:00:Suri Rascon RN) Pt Requests Energy And Conservation Technician Visit: No (04/26/2016 05:00:Suri Rascon RN) Hx of Any of the Following?: N/A (04/26/2016 05:00:Suri Rascon RN) New Diagnosis of: N/A (04/26/2016 05:00:Srui Rascon RN) Requires Assist w/Ambulation: No (04/26/2016 05:00:Suri Rascon RN) Uses Assist Device to Ambulate: No (04/26/2016 05:00:Suri Rascon RN) Pt Requires Help w/ADL's: No (04/26/2016 05:00:Srui Rascon RN)
--- NOTE | 2016-04-27 06:26 | L&D Care Plan ---
LD CARE PLANS Datetime Report Generated by CPN: 04/27/2016 06:15 Datetime: 04/26/2016 05:37 Pain State: Actual (Suri Rascon RN) Related To: Labor and Delivery Process; Complication(s) of ; Disease Process; Treatment and Procedures; Post (Suri Rascon RN) Goal(s): Patients Pain will be Assessed and Managed; Patient will Verbalize Adequate Relief of Pain or the Ability to [place] with Current Pain (Suri Rascon RN) Interventions: Assess Pain Severity on Scale of 0 (None) to 5 (Severe); Assess Type, Location and Intensity of Pain Each Time Client Reports Discomfort and Notify Provider if Unusal Pain Develops; Encourage Proper Breathing and Relaxation Techniques; Offer Alternatives Such as Repositioning, Calm Environment, Massages, Diversional Activities, Ice Pack, Splinting, and Ambulation; Administer Analgesics as Ordered; Assist with Epidural Placement as Appropriate; Evaluate Therapeutic Effectiveness of Medication and Treatments (Suri Rascon RN) Outcome: Patient will Report Absence or Relief of Pain Consistent with Established Pain Goal (Suri Rascon RN) Status: Ongoing (Suri Rascon RN) Outcome: Patient will have a Decrease in Signs and Symptoms of Discomfort (Suri Rascon RN) Status: Ongoing (Suri Rascon RN) Outcome: Pain will be Controlled During Procedures (Suri Rascon RN) Status: Ongoing (Suri Rascon RN) Anxiety State: Risk For (Suri Rascon RN) Related To: Labor and Delivery Process; Perceived or Actual Threat to ; Fear of Unknown; Situational Crisis; Medical Interventions; Significant Life Event (Suri Rascon RN) Goal(s): Patient will have Decreased Anxiety and be able to Function at Acceptable Levels (Suri Rascon RN) Interventions: Assess Verbal and Nonverbal Behavioral Indicators of Anxiety; Assist Patient to Identify and Verbalize Symptoms of Anxiety; Identify and Demonstrate Techniques to Control Anxiety; Assist Patient with Coping Mechanisms to Manage Anxiety; Provide Theraputic Touch for the Patient; Explain to Patient, Using a Calm Reassuring Approach and Nonmedical Terms, All Activities, Procedures, and Concerns; Instruct Patient and Family about Post Discharge Care, Limitations, Symptoms to Report and Resources Available (Suri Rascon RN) Outcome: Patient will Identify, Verbalize and Demonstrate Techniques to Control Anxiety (Suri Rascon RN) Status: Ongoing (Suri Rascon RN) Outcome: Patient's Posture, Facial Expressions, Gestures and Activity Level will Reflect Decreased Anxiety (Suri Rascon RN) Status: Ongoing (Suri Rascon RN) Outcome: Patient will Verbalize a Sense of Control and/or Acceptance of the Situation (Suri Rascon RN) Status: Ongoing (Suri Rascon RN) Outcome: Patient will Identify and Utilize Support Person (Suri Rascon RN) Status: Ongoing (Suri Rascon RN) Knowledge Deficit State: Risk For (Suri Rascon RN) Related To: Labor and Delivery Process; Treatment and Procedures; Impending Alterations in Family Dynamics; Feeding and Care (Suri Rascon RN) Goal(s): Patient will Accurately Verbalize Understanding of Plan of Care and Treatment; Patient and Family will Accurately Verbalize Understanding of the Disease Process (Suri Rascon RN) Interventions: Assess Motivation and Willingness of Patient/Family to Learn; Assess Preferred Learning Mode: One to One Instruction, Reading, Videos, Group Discussion or Demonstration; Assess Barriers to Learning: Pain, Emotional State, Language Barrier, Cognitive Impairment, Visual or Hearing Deficits; Assess Patient and Family Knowledge of Disease Process, Medications and Treatment; Discuss Therapy and/or Treatment Options, Describe Rationale Behind Management, Therapy and Treatment Recommendations; Instruct Patient and Family on Signs and Symptoms to Report; Instruct Patient and Family on Medication Effects and Side Effects; Provide Appropriate and Timely Education Using Multiple Techniques; Provide Patient and Family with Support Group Information and Resources; Give Clear and Thorough Explanations and Demonstrations (Suri Rascon RN) Outcome: Patient and Family will Verbalize Understanding of Condition, Treatment and Signs and Symptoms to Report (Suri Rascon RN) Status: Ongoing (Suri Rascon RN) Outcome: Patient will Identify Perceived Learning Needs and Express Motivation to Learn (Suri Rascon RN) Status: Ongoing (Suri Rascon RN) Outcome: Patient will Verbalize Understanding of Desired Content, and/or Performs Desired Skill Prior to Discharge (Suri Rascon RN) Status: Ongoing (Suri Rascon RN) Infection State: Risk For (Suri Rascon RN) Related To: Premature/Prolonged Rupture of Membranes; Invasive Procedures (Suri Rascon RN) Goal(s): The Patient will be Free of Infection, Vital Signs Stable and Lab Work within Normal Parameters (Suri Rascon RN) Interventions: Instruct and Reinforce Proper Handwashing, Hygiene, and Care Techniques to Patient and Family; Monitor Vital Signs; Monitor Patient for the Following Signs of Infection: Fever, Abdominal Tenderness, Unusual Discharge; Monitor Aminiotic Fluid, Urine and Lochia for Color and Odor; Observe Wounds, Incisions and Invasive Line Sites for Redness, Drainage and Edema; Assess IV Sites per Hospital Policy; Monitor Lab and Test Results and Notify Provider of Abnormal Findings; Assess Nutritional Status and Promote Good Nutrition (Suri Rascon RN) Outcome: Patient will Remain Free of Infection (Suri Rascon RN) Status: Ongoing (Suri Rascon RN) Outcome: Infection will be Recognized Early to Allow for Prompt Treatment (Suri Rascon RN) Status: Ongoing (Suri Rascon RN) Outcome: Patient will have Vital Signs Within Expected Range (Suri Rascon RN) Status: Ongoing (Suri Rascon RN) Injury State: Risk For (Suri Rascon RN) Related To: Labor and Delivery Process (Suri Rascon RN) Goal(s): Patient will Remain Free from Injury (Suri Rascon RN) Interventions: Monitoring as per Hospital Protocol; Assess Neurological Status; Perform Risk Assessment of Patients with Induction and ; Perform Fall Risk Assessment and Prevention per Hospital Protocol; Perform DVT Risk Assessment and Prophylaxis per Hospital Protocol; Ensure that Oxygen, Suction, and Resuscitation Medications and Equipment are Readily Available; Confirm Patient ID Prior to Procedure(s) and Medication Administration per Hospital Policy (Suri Rascon RN) Outcome: Successful Fall Risk Prevention (Suri Rascon RN) Status: Ongoing (Suri Rascon RN) Outcome: Patient will Deliver Infant without Adverse [place] (Suri Rascon RN) Status: Ongoing (Suri Rascon RN) Outcome: Patient's Neurological Status will Remain Stable (Suri Rascon RN) Status: Ongoing (Suri Rascon RN)
[2016-04-27 07:51] LABS: HEMATOCRIT 35.5 % (36.0-47.0); HEMOGLOBIN 12.6 g/dL (12.0-15.5); HGB HCT DIFFERENCE 2.3; MEAN CORPUSCULAR HEMOGLOBIN 33.2 pg (27.0-33.4); MEAN CORPUSCULAR HGB CONC 35.4 g/dL (32.0-36.0); MEAN CORPUSCULAR VOLUME 94 fl (80-97); RED BLOOD COUNT 3.78 10^6/uL (3.72-5.28); RED CELL DISTRIBUTION WIDTH 13.3 % (11.5-14.0); WHITE BLOOD COUNT 9.3 10^3/uL (4.0-10.5)
--- NOTE | 2016-04-27 09:00 | PDOC PROGRESS REPORT ---
Subjective-OB Subjective: Post Delivery Day: 1 20 year old. Denies any needs at this time, is voiding without difficulty, pain well controlled, lochia is stable. Physical Exam (OB) Vital Signs: Temp Pulse Resp BP Pulse Ox 98.2 F 78 16 118/65 97 04/27/16 07:13 04/27/16 07:13 04/27/16 07:13 04/27/16 07:13 04/27/16 07:13 Intake & Output 04/26/16 04/27/16 04/28/16 06:59 06:59 06:59 Weight 81 kg - Lochia Lochia Amount: Scant < 10 ml Lochia Color: Rubra/Red - Abdomen Description: Tender, Soft, Round Hernia Present: No Fundal Description: Firm, Midline Fundal Height: u/u - u/2 Objective-Diagnostic Laboratory: 04/27/16 06:58 04/26/16 04/26/16 04/26/16 04:58 04:58 04:58 WBC 9.0 RBC 4.03 Hgb 13.1 Hct 37.6 MCV 93 MCH 32.5 MCHC 34.8 RDW 13.0 Plt Count 217 Seg Neutrophils % 65.7 Lymphocytes % 25.4 Monocytes % 7.8 Eosinophils % 0.7 Basophils % 0.4 Absolute Neutrophils 5.9 Absolute Lymphocytes 2.3 Absolute Monocytes 0.7 Absolute Eosinophils 0.1 Absolute Basophils 0.0 Urine Color YELLOW Urine Appearance SLIGHTLY-CLOUDY Urine pH 7.0 Ur Specific Gomer 1.011 Urine Protein NEGATIVE Urine Glucose (UA) NEGATIVE Urine Ketones NEGATIVE Urine Blood SMALL H Urine Nitrite NEGATIVE Ur Leukocyte Esterase NEGATIVE Blood Type O POSITIVE Antibody Screen NEGATIVE 04/27/16 06:58 WBC 9.3 RBC 3.78 Hgb 12.6 Hct 35.5 L MCV 94 MCH 33.2 MCHC 35.4 RDW 13.3 Plt Count 180 Seg Neutrophils % Lymphocytes % Monocytes % Eosinophils % Basophils % Absolute Neutrophils Absolute Lymphocytes Absolute Monocytes Absolute Eosinophils Absolute Basophils Urine Color Urine Appearance Urine pH Ur Specific Gomer Urine Protein Urine Glucose (UA) Urine Ketones Urine Blood Urine Nitrite Ur Leukocyte Esterase Blood Type Antibody Screen Assessment and Plan(PN) - Assessment and Plan (1) Vaginal delivery Is this a current diagnosis for this admission?: YesPlan: routine pp care - Time Spent with Patient Time with patient: Less than 15 minutes Critical Time spent with patient: Less than 15 minutes Medications reviewed and adjusted accordingly: Yes - Disposition Anticipated Discharge: Home Within: within 24 hours
[2016-04-27] MEDS: DOCUSATE SODIUM 100 MG CAPSULE PO SCH ×2 (09:42→17:49)
[2016-04-27] MEDS: FERROUS SULFATE 325 MG TABLET PO SCH ×2 (09:42→17:49)
[2016-04-27] MEDS: PRENATAL VITAMIN W-O CA NO5/FE FUMARATE/FA CAPSULE PO SCH (09:42)
[2016-04-27] MEDS: SENNOSIDES/DOCUSATE 8.6-50 MG 1 EACH TABLET PO SCH (09:42)
--- NOTE | 2016-04-28 06:26 | L&D Current Admission ---
Current Admit Datetime Report Generated by CPN: 04/28/2016 06:00 ADMISSION INFORMATION Current Admit Date/Time: 04/26/2016 05:00 (04/26/2016 05:00:Suri Rascon RN) Reason for Admission: Rupture of Membranes; Induction of Labor (04/26/2016 05:00:Suri Rascon RN) Other Reason for Admission: Pt scheduled for induction 04/26/16, SROM at 0330 (04/26/2016 05:00:Suri Rascon RN) Chief Complaint: Suspected Rupture of Membranes (04/26/2016 05:00:Suri Rascon RN) Medications During : Vitamin (04/26/2016 05:00:Suri Rascon RN) EGA per Dates: 41.0 (04/26/2016 05:00:QS system process) Admitted From: Home (04/26/2016 05:00:Suri Rascon RN) Reason for Induction: Postterm (04/26/2016 05:00:Suri Rascon RN) Records Available: Yes (04/26/2016 05:00:Suri Rascon RN) General Admission Information: Reviewed; Updated; Confirmed (04/26/2016 05:00:Suri Rascon RN) General Admission Reviewed By: Jasmin Rascon RN (04/26/2016 05:00:Suri Rascon RN) BELONGINGS/ADVANCED DIRECTIVES Other Belongings: see [facility] belongings form (04/26/2016 05:00:Suri Rascon RN) Advance Direct for Healthcare: No, and Wants No Information (04/26/2016 05:00:Suri Rascon RN) Durable Power of Production Support Consultant: No (04/26/2016 05:00:Suri Rascon RN) Living Will: No (04/26/2016 05:00:Suri Rascon RN) Organ Donor: Yes (04/26/2016 05:00:Suri Rascon RN) Pt Rights Information Given: Yes (04/26/2016 05:00:Suri Rascon RN) Pt Understands Pt Rights: No (04/26/2016 05:00:Suri Rascon RN) LEARNING ASSESSMENT Knowledge Level: Understands L_D Process (04/26/2016 05:00:Suri Rascon RN) Barriers to Learning: Emotional State; Pain (04/26/2016 05:00:Suri Rascon RN) Learning Readiness: Motivated (04/26/2016 05:00:Suri Rascon RN) Learns Best By: 1 to 1 Instruction (04/26/2016 05:00:Suri Rascon RN) Learning Needs: Labor and Delivery Process; Pain Management; Symptoms to Report; Treatment Plan; Medication; Diagnosis; Nutrition; Equipment; Infant Care (04/26/2016 05:00:Suri Rascon RN) DOMESTIC VIOLANCE SCREENING Dom Viol Threatened/Hurt: No (04/26/2016 05:00:Suri Rascon RN) Hx of Abuse/Neglect past 2yrs: No (04/26/2016 05:00:Suri Rascon RN) Feel Unsafe Going Home: No (04/26/2016 05:00:Suri Rascon RN) Addt'l Observ Indicating Abuse: No (04/26/2016 05:00:Suri Rascon RN) Reason Unable to Complete Screen: N/A, Screen Completed (04/26/2016 05:00:Suri Rascon RN) Considered Personal Harm/Suicide: No (04/26/2016 05:00:Suri Rascon RN) NUTRITIONAL/FUNCTIONAL SCREENING Problem with Appetite >5 Days: No (04/26/2016 05:00:Suri Rascon RN) Chew/Swallow Difficulties: No (04/26/2016 05:00:Suri Rascon RN) Inappropriate Wt Gain/Loss: No (04/26/2016 05:00:Suri Rascon RN) Presence Skin Breakdown/Ulcer: No (04/26/2016 05:00:Suri Rascon RN) Special Diet: No (04/26/2016 05:00:Suri Rascon RN) Pt Requests Bacteriologist Pharmaceutical Visit: No (04/26/2016 05:00:Suri Rascon RN) Hx of Any of the Following?: N/A (04/26/2016 05:00:Suri Rascon RN) New Diagnosis of: N/A (04/26/2016 05:00:Suri Rascon RN) Requires Assist w/Ambulation: No (04/26/2016 05:00:Suri Rascon RN) Uses Assist Device to Ambulate: No (04/26/2016 05:00:Suri Rascon RN) Pt Requires Help w/ADL's: No (04/26/2016 05:00:Suri Rascon RN)
--- NOTE | 2016-04-28 06:26 | L&D General Admission ---
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: [employer] (04/26/2016 03:15:Suri Racson RN) Adequate Care: Yes (04/26/2016 03:15:Suri Rascon RN) Prepregnancy Weight (lb): 150 (04/26/2016 03:15:Suri Rascon RN) Prepregnancy Weight (kg): 68.2 (04/26/2016 03:15:QS system process) Height (in): 65 (04/26/2016 10:15:QS system process) ALLERGIES Medication Allergy: Yes (04/26/2016 03:15:Rhoda Kim RN) Medication Allergies: Cephalosporins (04/26/2016) (04/26/2016 10:15:QS system process) Latex Allergy: Unknown (04/26/2016 03:15:Suri Rascon RN) COMMUNICATION Primary Language: Urdu (04/26/2016 03:15:Rhoda Kim RN) Medical Tx Preferred Language: Urdu (04/26/2016 03:15:Suri Rascon RN) Communication Barrier(s): None (04/26/2016 03:15:Rhoda Kim RN) DEMOGRAPHICS Address: [address] [place] [id number] (04/25/2016 16:49:QS system process) Zipcode: [id number] (04/25/2016 16:49:QS system process) Home (04/25/2016 16:49:QS system process) SSN: [id number] (04/25/2016 16:49:QS system process) Next of Kin Name: YOSVANY CHERY (04/25/2016 16:49:QS system process) Next of Kin (04/25/2016 16:49:QS system process) Next of Kin Relationship: OR (04/25/2016 16:49:QS system process) Date of : 1995 (04/25/2016 16:49:QS system process) Marital Status: Single (04/25/2016 16:49:QS system process) Sex: Female (04/25/2016 16:49:QS system process) Race: (04/25/2016 16:49:QS system process) Ethnicity: Non- or (04/25/2016 16:49:QS system process) Orthodox: None (04/26/2016 08:12:QS system process) DRUG AND ALCOHOL USE Alcohol: No (04/26/2016 03:15:Suri Rascon RN) Cigarettes: Never Smoker. 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 (04/26/2016 03:15:Suri Rascon RN) Feeding Preference: Breast (04/26/2016 03:15:Suri Rascon RN) Benefit of Breast Feed Discussed: Yes (04/26/2016 03:15:Suri Rascon RN) Circumcision: Yes (04/26/2016 03:15:Suri Rascon RN) Classes Attended: No (04/26/2016 03:15:Suri Rascon RN) Tubal Ligation: No (04/26/2016 03:15:Suri Rascon RN) Tubal Authorization Signed: N/A (04/26/2016 03:15:Suri Rascon RN) Consent: N/A (04/26/2016 03:15:Suri Rascon RN) Consent Signed: N/A (04/26/2016 03:15:Suri Rascon RN) Pain Management Plans: Epidural (04/26/2016 03:15:Suri Rascon RN) Plans for Labor and Delivery: None (04/26/2016 03:15:Suri Rascon RN) Support Person: Rubin Chery (04/26/2016 03:15:Suri Rascon RN) Support Person Relationship: Significant Other (04/26/2016 03:15:Suri Rascon RN) Other Relationship: Boyfriend (04/26/2016 03:15:Suri Rascon RN) Cultural/Spritual Practice: No (04/26/2016 03:15:Suri Rascon RN) Spir/Cult Dietary Needs: No (04/26/2016 03:15:Suri Rascon RN) LIVING SITUATION/DISCHARGE PLAN Living Arrangements: House (04/26/2016 03:15:Suri Rascon RN) Adequate Access to:: Electric; Heat; Refrigeration; Plumbing/Running water; Phone; Transportation (04/26/2016 03:15:Suri Rascon RN) WIC Program: Yes (04/26/2016 03:15:Suri Rascon RN) Discharge Match Up Worker Person: Rubin Chery (04/26/2016 03:15:Suri Rascon RN) Person to Help after Discharge: Rubin Chery (04/26/2016 03:15:Suri Rascon RN) Currently Using Commun Resources: Yes (04/26/2016 03:15:Suri Rascon RN) Car Seat for Discharge: Yes (04/26/2016 03:15:Suri Rascon RN) Adoption Requested: No (04/26/2016 03:15:Suri Rascon RN) Pt Contact w/ Post : N/A (04/26/2016 03:15:Suri Rascon RN) LABS Blood Type: O Positive (04/26/2016 03:15:Nhi Ayala RN) Antibody Screen: negative (04/26/2016 03:15:Nhi Ayala RN) Hemoglobin: 12.6 (04/27/2016 06:58:QS system process) Hematocrit: 35.5 L (04/27/2016 06:58:QS system process) MCV: 94 (04/27/2016 06:58:QS system process) Group Beta Strep: negative (04/26/2016 03:15:Nhi Ayala RN) Gonorrhea: Negative (04/26/2016 03:15:Nhi Ayala RN) Chlamydia: Negative (04/26/2016 03:15:Nhi Ayala RN) RPR/VDRL: Nonreactive (04/26/2016 03:15:Nhi Ayala RN) HIV Results: nonreactive (04/26/2016 03:15:Nhi Ayala RN) Hepatitis B: Negative (04/26/2016 03:15:Nhi Ayala RN) Rubella: Immune (04/26/2016 03:15:Nhi Ayala RN) Varicella: Non Susceptible (04/26/2016 03:15:Nhi Ayala RN) OB/PREVIOUS HISTORY History of Previous : No (04/26/2016 03:15:Suri Rascon RN) History of Gestational Diabetes: No (04/26/2016 03:15:Suri Rascon RN) History of PIH: No (04/26/2016 03:15:Suri Rascon RN) History of Incompetent Cervix: No (04/26/2016 03:15:Suri Rascon RN) History of Placenta Previa/Abrup: No (04/26/2016 03:15:Suri Rascon RN) History of Macrosomia: No (04/26/2016 03:15:Suri Rascon RN) History of IUGR: No (04/26/2016 03:15:Suri Rascon RN) History of Hemorrhage: No (04/26/2016 03:15:Suri Rascon RN) History of Loss/Stillborn: No (04/26/2016 03:15:Suri Rascon RN) History of : No (04/26/2016 03:15:Suri Rascon RN) History of D (Rh) Sensitization: No (04/26/2016 03:15:Suri Rascon RN) History Recurrent Loss/Stillborn: No (04/26/2016 03:15:Suri Rascon RN) History Depression/PP Depression: No (04/26/2016 03:15:Suri Rascon RN) History of Uterine Anomaly/MORRO: No (04/26/2016 03:15:Suri Rascon RN) History of Infertility: No (04/26/2016 03:15:Suri Rascon RN) History of ART Treatment: No (04/26/2016 03:15:Suri Rascon RN) History of MORRO: No (04/26/2016 03:15:Suri Rascon RN) Comments Obstetrical History: G1: Current (04/26/2016 03:15:Suri Rascon RN) MEDICAL HISTORY Med Hx Diabetes: No (04/26/2016 03:15:Suri Rascon RN) Med Hx Hypertension: No (04/26/2016 03:15:Suri Rascon RN) Med Hx Heart Disease: No (04/26/2016 03:15:Suri Rascon RN) Med Hx Autoimmune Disorder: No (04/26/2016 03:15:Suri Rascon RN) Med Hx Kidney Disease/UTI: No (04/26/2016 03:15:Suri Rascon RN) Med Hx Neurologic/Epilepsy: No (04/26/2016 03:15:Suri Rascon RN) Med Hx Psychiatric Disorders: No (04/26/2016 03:15:Suri Rascon RN) Med Hx Hepatitis/Liver Disease: No (04/26/2016 03:15:Suri Rascon RN) Med Hx Varicosities/Phlebitis: No (04/26/2016 03:15:Suri Rascon RN) Med Hx Thyroid Dysfunction: No (04/26/2016 03:15:Suri Rascon RN) Med Hx Trauma/Violence: No (04/26/2016 03:15:Suri Rascon RN) Med Hx Blood Transfusion: No (04/26/2016 03:15:uSri Rascon RN) Med Hx Pulmonary (Asthma,TB): No (04/26/2016 03:15:Suri Rascon RN) Med Hx Breast: No (04/26/2016 03:15:Suri Rascon RN) Med Hx YARD CONDUCTOR Surgery: No (04/26/2016 03:15:Suri Rascon RN) Med Hx Hospitalization/Surgery: Yes (04/26/2016 03:15:Suri Rascon RN) Med Hx Anesthetic Complications: No (04/26/2016 03:15:Suri Rascon RN) Med Hx Abnormal Pap Smear: No (04/26/2016 03:15:Suri Rascon RN) Other Medical Diseases: No (04/26/2016 03:15:Suri Rascon RN) Med Hx Significant Family Hx: No (04/26/2016 03:15:Suri Rascon RN) Details of 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 (04/26/2016 03:15:Suri Rascon RN) INFECTIOUS HISTORY Inf Hx Gonorrhea: No (04/26/2016 03:15:Suri Rascon RN) Inf Hx Chlamydia: No (04/26/2016 03:15:Suri Rascon RN) Inf Hx Syphilis: No (04/26/2016 03:15:Suri Rascon RN) Inf Hx HIV/AIDS: No (04/26/2016 03:15:Suri Rascon RN) Inf Hx Human Papilloma Virus: No (04/26/2016 03:15:Suri Rascon RN) Inf Hx Pt/Partner Genital Herpes: No (04/26/2016 03:15:Suri Rascon RN) Inf Hx Tuberculosis/Exposure: No (04/26/2016 03:15:Suri Rascon RN) Inf Hx Hepatitis B,C: No (04/26/2016 03:15:Suri Rascon RN) Inf Hx Rash or Viral Illness: No (04/26/2016 03:15:Suri Rascon RN) GENETIC HISTORY Gen Hx Age >=35 at RONNY: No (04/26/2016 03:15:Suri Rascon RN) Gen Hx Thalassemia: No (04/26/2016 03:15:Suri Rascon RN) Gen Hx Congenital Heart Defect: No (04/26/2016 03:15:Suri Rascno RN) Gen Hx Neural Tube Defect: No (04/26/2016 03:15:Suri Rascon RN) Gen Hx Down's Syndrome: No (04/26/2016 03:15:Suri Rascon RN) Gen Hx Todd-Sachs: No (04/26/2016 03:15:Suri Rascon RN) Gen Hx Danis: No (04/26/2016 03:15:Suri Rascon RN) Gen Hx Familial Dysautonomia: No (04/26/2016 03:15:Suri Rascon RN) Gen Hx Sickle Cell Disease/Trait: No (04/26/2016 03:15:Suri Rascon RN) Gen Hx Hemophilia/Blood Disorder: No (04/26/2016 03:15:Suri Rascon RN) Gen Hx Muscular Dystrophy: No (04/26/2016 03:15:Suri Rascon RN) Gen Hx Cystic Fibrosis: No (04/26/2016 03:15:Suri Rascon RN) Gen Hx Huntingtons Chorea: No (04/26/2016 03:15:Suri Rascon RN) Gen Hx Mental Retardation/Autism: No (04/26/2016 03:15:Suri Rascon RN) Gen Hx Tested for Fragile X: No (04/26/2016 03:15:Suri Rascon RN) Gen Hx Other Inher/Chromosomal: No (04/26/2016 03:15:Suri Rascon RN) Gen Hx Maternal Metabolic DO: No (04/26/2016 03:15:Suri Rascon RN) Gen Hx Pt Father or FOB Defect: No (04/26/2016 03:15:Suri Rascon RN) Gen Hx Other Genetic History: No (04/26/2016 03:15:Suri Rascon RN) Gen Hx Drugs/Meds since LMP: Yes (04/26/2016 03:15:Suri Rascon RN) Gen Hx Medications: PNV (04/26/2016 03:15:Suri Rascon RN)
[2016-04-28] MEDS: IBUPROFEN 800 MG TABLET PO SCH (06:36)
[2016-04-28 07:55] VITALS: BP 129/81
[2016-04-28] MEDS: PRENATAL VITAMIN W-O CA NO5/FE FUMARATE/FA CAPSULE PO SCH (09:36)
[2016-04-28] MEDS: FERROUS SULFATE 325 MG TABLET PO SCH (09:36)
[2016-04-28] MEDS: SENNOSIDES/DOCUSATE 8.6-50 MG 1 EACH TABLET PO SCH (09:37)
[2016-04-28] MEDS: DOCUSATE SODIUM 100 MG CAPSULE PO SCH (09:37)
--- NOTE | 2016-04-28 13:13 | PDOC DISCHARGE SUMMARY ---
Discharge Summary-OB Discharge Date: 04/28/16 - Final Diagnosis (1) Vaginal delivery Is this a current diagnosis for this admission?: Yes - Discharge Medication Home Medications: Prenat Vit Comb.10/Iron/FA/Dha [Vitafol-Ob+Dha Combo Pack] 1 tab PO DAILY Ibuprofen [Motrin 800 mg Tablet] 800 mg PO Q8HP PRN #90 tablet 04/28/16 Pnv W-O Ca No5/Fe Fumarate/FA [-U Multiple Vitamin Capsule] 1 cap PO DAILY #0 capsule 04/28/16 Reason(s) for Admission: Onset of Labor Procedures: NST, Ultrasound Intrapartum Procedure(s): Spontaneous Vaginal Delivery Complication(s): Laceration-Labial - Kevin Data Baby 1 Female at 1 minute: 8 at 5 minutes: 9 Weight: 3910 kg Home with Mother: Yes Complications: No - Diagnosis Test Laboratory: Temp Pulse Resp BP Pulse Ox 98.1 F 63 15 129/81 H 100 04/28/16 09:44 04/28/16 09:44 04/28/16 09:44 04/28/16 07:29 04/28/16 09:44 04/26/16 04/26/16 04/27/16 04:58 04:58 06:58 RBC 4.03 3.78 Hgb 13.1 12.6 Hct 37.6 35.5 L Urine Opiates Screen NEGATIVE - Discharge information/Instructions Discharge Activity: Activity As Tolerated, No Lifting Over 10 Pounds, Pelvic Rest, No tub bath Discharge Diet: Regular Disposition: HOME, SELF-CARE Follow up with: [facility] in: 4, Weeks Physical Exam (OB) Vital Signs: Temp Pulse Resp BP Pulse Ox 98.1 F 63 15 129/81 H 100 04/28/16 09:44 04/28/16 09:44 04/28/16 09:44 04/28/16 07:29 04/28/16 09:44 Intake & Output 04/27/16 04/28/16 04/29/16 06:59 06:59 06:59 Weight 81 kg Baby 1 Female 3910 kg - General General Appearance: Appears well In distress: None - Episiotomy/Laceration Site Condition: Well Approximated - Lochia Lochia Amount: Scant < 10 ml Lochia Color: Rubra/Red - Abdomen Hernia Present: No Fundal Description: Firm, Midline Fundal Height: u/u - u/2 - Respiratory Respiratory Status: No respiratory distress - Extremities Upper extremity: Normal inspection Lower extremities: Normal inspection - Neurological Cognition: Normal Orientation: AAOx4 - Psychological Associated symptoms: Normal affect - bonding well with baby, Normal mood - bonding well with baby
--- NOTE | 2016-04-29 06:25 | L&D Current Admission ---
Current Admit Datetime Report Generated by CPN: 04/29/2016 06:00 ADMISSION INFORMATION Current Admit Date/Time: 04/26/2016 05:00 (04/26/2016 05:00:Suri Rascon RN) Reason for Admission: Rupture of Membranes; Induction of Labor (04/26/2016 05:00:Suri Rascon RN) Other Reason for Admission: Pt scheduled for induction 04/26/16, SROM at 0330 (04/26/2016 05:00:Suri Rascon RN) Chief Complaint: Suspected Rupture of Membranes (04/26/2016 05:00:Suri Rascon RN) Medications During : Vitamin (04/26/2016 05:00:Suri Rascon RN) EGA per Dates: 41.0 (04/26/2016 05:00:QS system process) Admitted From: Home (04/26/2016 05:00:Suri Rascon RN) Reason for Induction: Postterm (04/26/2016 05:00:Suri Rascon RN) Records Available: Yes (04/26/2016 05:00:Suri Rascon RN) General Admission Information: Reviewed; Updated; Confirmed (04/26/2016 05:00:Suri Rascon RN) General Admission Reviewed By: Jasmin Rascon RN (04/26/2016 05:00:Suri Rascon RN) BELONGINGS/ADVANCED DIRECTIVES Other Belongings: see [facility] belongings form (04/26/2016 05:00:Suri Rascon RN) Advance Direct for Healthcare: No, and Wants No Information (04/26/2016 05:00:Suri Rascon RN) Durable Power of Equine Pharmacology Technician: No (04/26/2016 05:00:Suri Rascon RN) Living Will: No (04/26/2016 05:00:Suri Rascon RN) Organ Donor: Yes (04/26/2016 05:00:Suri Rascon RN) Pt Rights Information Given: Yes (04/26/2016 05:00:Suri Rascon RN) Pt Understands Pt Rights: No (04/26/2016 05:00:Suri Rascon RN) LEARNING ASSESSMENT Knowledge Level: Understands L_D Process (04/26/2016 05:00:Suri Rascon RN) Barriers to Learning: Emotional State; Pain (04/26/2016 05:00:Suri Rascon RN) Learning Readiness: Motivated (04/26/2016 05:00:Suri Rascon RN) Learns Best By: 1 to 1 Instruction (04/26/2016 05:00:Suri Rascon RN) Learning Needs: Labor and Delivery Process; Pain Management; Symptoms to Report; Treatment Plan; Medication; Diagnosis; Nutrition; Equipment; Infant Care (04/26/2016 05:00:Suri Rascon RN) DOMESTIC VIOLANCE SCREENING Dom Viol Threatened/Hurt: No (04/26/2016 05:00:Suri Rascon RN) Hx of Abuse/Neglect past 2yrs: No (04/26/2016 05:00:Suir Rascon RN) Feel Unsafe Going Home: No (04/26/2016 05:00:Suri Rascon RN) Addt'l Observ Indicating Abuse: No (04/26/2016 05:00:Suri Rascon RN) Reason Unable to Complete Screen: N/A, Screen Completed (04/26/2016 05:00:Suri Rascon RN) Considered Personal Harm/Suicide: No (04/26/2016 05:00:Suri Rascon RN) NUTRITIONAL/FUNCTIONAL SCREENING Problem with Appetite >5 Days: No (04/26/2016 05:00:Suri Rascon RN) Chew/Swallow Difficulties: No (04/26/2016 05:00:Suri Rascon RN) Inappropriate Wt Gain/Loss: No (04/26/2016 05:00:Suri Rascon RN) Presence Skin Breakdown/Ulcer: No (04/26/2016 05:00:Suri Rascon RN) Special Diet: No (04/26/2016 05:00:Suri Rascon RN) Pt Requests Supervisor Farm Equipment Maintenance Visit: No (04/26/2016 05:00:Suri Rascon RN) Hx of Any of the Following?: N/A (04/26/2016 05:00:Suri Rascon RN) New Diagnosis of: N/A (04/26/2016 05:00:Suri Rascon RN) Requires Assist w/Ambulation: No (04/26/2016 05:00:Suri Rascon RN) Uses Assist Device to Ambulate: No (04/26/2016 05:00:Suri Rascon RN) Pt Requires Help w/ADL's: No (04/26/2016 05:00:Suri Racson RN)
--- NOTE | 2016-04-29 06:25 | L&D General Admission ---
General Admit Datetime Report Generated by CPN: 04/29/2016 06:00 INFORMATION Patient Age: 20 (04/25/2016 16:49:QS system process) EDC: 04/19/2016 00:00 (04/26/2016 03:15:Nhi Ayala RN) : 1 (04/26/2016 03:15:Nhi Ayala RN) Para: 0 (04/26/2016 03:15:Nhi Ayala RN) Term: 0 (04/26/2016 03:15:Nhi Ayala RN) : 0 (04/26/2016 03:15:Nhi Ayala RN) Spontaneous Abortions: 0 (04/26/2016 03:15:Nhi Ayala RN) Induced Abortions: 0 (04/26/2016 03:15:Nhi Ayala RN) Livin (04/26/2016 03:15:Nhi Ayala RN) Baby, Number in Womb: 1 (04/26/2016 03:15:Nhi Ayala RN) CARE Primary Tool Crib Attendant: [facility] (04/26/2016 03:15:Suri Rascon RN) Adequate Care: Yes (04/26/2016 03:15:Suri Rascon RN) Prepregnancy Weight (lb): 150 (04/26/2016 03:15:Suri Rascon RN) Prepregnancy Weight (kg): 68.2 (04/26/2016 03:15:QS system process) Height (in): 65 (04/26/2016 10:15:QS system process) ALLERGIES Medication Allergy: Yes (04/26/2016 03:15:Rhoda Kim RN) Medication Allergies: Cephalosporins (04/26/2016) (04/26/2016 10:15:QS system process) Latex Allergy: Unknown (04/26/2016 03:15:Suri Rascon RN) COMMUNICATION Primary Language: Tajik (04/26/2016 03:15:Rhoda Kim RN) Medical Tx Preferred Language: Tajik (04/26/2016 03:15:Suri Rascon RN) Communication Barrier(s): None (04/26/2016 03:15:Rhoda Kim RN) DEMOGRAPHICS Address: [address] [place] [id number] (04/25/2016 16:49:QS system process) Zipcode: [id number] (04/25/2016 16:49:QS system process) Home (04/25/2016 16:49:QS system process) SSN: [id number] (04/25/2016 16:49:QS system process) Next of Kin Name: YOSVANY CHERY (04/25/2016 16:49:QS system process) Next of Kin (04/25/2016 16:49:QS system process) Next of Kin Relationship: OR (04/25/2016 16:49:QS system process) Date of : 1995 (04/25/2016 16:49:QS system process) Marital Status: Single (04/25/2016 16:49:QS system process) Sex: Female (04/25/2016 16:49:QS system process) Race: (04/25/2016 16:49:QS system process) Ethnicity: Non- or (04/25/2016 16:49:QS system process) Bahai: None (04/26/2016 08:12:QS system process) DRUG AND ALCOHOL USE Alcohol: No (04/26/2016 03:15:Suri Rascon RN) Cigarettes: Never Smoker. [id number] (04/26/2016 03:15:Suri Rascon RN) Marijuana: No (04/26/2016 03:15:Suri Rascon RN) Cocaine: No (04/26/2016 03:15:Suri Rascon RN) Other Illicit Drugs: No (04/26/2016 03:15:Suri Rascon RN) VACCINE HISTORY Influenza Vaccine: No (04/26/2016 03:15:Suri Rascon RN) Pneumococcal Vaccine: No (04/26/2016 03:15:Suri Rascon RN) Tetanus Vaccine: Yes (04/26/2016 03:15:Suri Rascon RN) Tdap Vaccine: Yes (04/26/2016 03:15:Suri Rascon RN) Hepatitis B Vaccine: Yes (04/26/2016 03:15:Suri Rascon RN) Barge Pilot: Other (04/26/2016 03:15:Suri Rascon RN) Feeding Preference: Breast (04/26/2016 03:15:Suri Rascon RN) Benefit of Breast Feed Discussed: Yes (04/26/2016 03:15:Suri Rascon RN) Circumcision: Yes (04/26/2016 03:15:Suri Rascon RN) Classes Attended: No (04/26/2016 03:15:Suri Rascon RN) Tubal Ligation: No (04/26/2016 03:15:Suri Rascon RN) Tubal Authorization Signed: N/A (04/26/2016 03:15:Suri Rascon RN) Consent: N/A (04/26/2016 03:15:Suri Rascon RN) Consent Signed: N/A (04/26/2016 03:15:Suri Rascon RN) Pain Management Plans: Epidural (04/26/2016 03:15:Suri Rascon RN) Plans for Labor and Delivery: None (04/26/2016 03:15:Suri Rascon RN) Support Person: Rubin Chery (04/26/2016 03:15:Suri Rascon RN) Support Person Relationship: Significant Other (04/26/2016 03:15:Suri Rascon RN) Other Relationship: Boyfriend (04/26/2016 03:15:Suri Rascon RN) Cultural/Spritual Practice: No (04/26/2016 03:15:Suri Rascon RN) Spir/Cult Dietary Needs: No (04/26/2016 03:15:Suri Rascon RN) LIVING SITUATION/DISCHARGE PLAN Living Arrangements: House (04/26/2016 03:15:Suri Rascon RN) Adequate Access to:: Electric; Heat; Refrigeration; Plumbing/Running water; Phone; Transportation (04/26/2016 03:15:Suri Rascon RN) WIC Program: Yes (04/26/2016 03:15:Suri Rascon RN) Discharge Health Information Internship Person: Rubin Chery (04/26/2016 03:15:Suri Rascon RN) Person to Help after Discharge: Rubin Chery (04/26/2016 03:15:Suri Rascon RN) Currently Using Commun Resources: Yes (04/26/2016 03:15:Suri Rascon RN) Car Seat for Discharge: Yes (04/26/2016 03:15:Suri Rascon RN) Adoption Requested: No (04/26/2016 03:15:Suri Rascon RN) Pt Contact w/ Post : N/A (04/26/2016 03:15:Suri Rascon RN) LABS Blood Type: O Positive (04/26/2016 03:15:Nhi Ayala RN) Antibody Screen: negative (04/26/2016 03:15:Nhi Ayala RN) Hemoglobin: 12.6 (04/27/2016 06:58:QS system process) Hematocrit: 35.5 L (04/27/2016 06:58:QS system process) MCV: 94 (04/27/2016 06:58:QS system process) Group Beta Strep: negative (04/26/2016 03:15:Nhi Ayala RN) Gonorrhea: Negative (04/26/2016 03:15:Nhi Ayala RN) Chlamydia: Negative (04/26/2016 03:15:Nhi Ayala RN) RPR/VDRL: Nonreactive (04/26/2016 03:15:Nhi Ayala RN) HIV Results: nonreactive (04/26/2016 03:15:Nhi Ayala RN) Hepatitis B: Negative (04/26/2016 03:15:Nhi Ayala RN) Rubella: Immune (04/26/2016 03:15:Nhi Ayala RN) Varicella: Non Susceptible (04/26/2016 03:15:Nhi Ayala RN) OB/PREVIOUS HISTORY History of Previous : No (04/26/2016 03:15:Suri Rascon RN) History of Gestational Diabetes: No (04/26/2016 03:15:Suri Rascon RN) History of PIH: No (04/26/2016 03:15:Suri Rascon RN) History of Incompetent Cervix: No (04/26/2016 03:15:Suri Rascon RN) History of Placenta Previa/Abrup: No (04/26/2016 03:15:Suri Rascon RN) History of Macrosomia: No (04/26/2016 03:15:Suri Rascon RN) History of IUGR: No (04/26/2016 03:15:Suri Rascon RN) History of Hemorrhage: No (04/26/2016 03:15:Suri Rascon RN) History of Loss/Stillborn: No (04/26/2016 03:15:Suri Rascon RN) History of : No (04/26/2016 03:15:Suri Rascon RN) History of D (Rh) Sensitization: No (04/26/2016 03:15:Suri Rascon RN) History Recurrent Loss/Stillborn: No (04/26/2016 03:15:Suri Rascon RN) History Depression/PP Depression: No (04/26/2016 03:15:Suri Rascon RN) History of Uterine Anomaly/MORRO: No (04/26/2016 03:15:Suri Rascon RN) History of Infertility: No (04/26/2016 03:15:Suri Rascon RN) History of ART Treatment: No (04/26/2016 03:15:Suri Rascon RN) History of MORRO: No (04/26/2016 03:15:Suri Rascon RN) Comments Obstetrical History: G1: Current (04/26/2016 03:15:Suri Rascon RN) MEDICAL HISTORY Med Hx Diabetes: No (04/26/2016 03:15:Suri Rascon RN) Med Hx Hypertension: No (04/26/2016 03:15:Suri Rascon RN) Med Hx Heart Disease: No (04/26/2016 03:15:Suri Rascon RN) Med Hx Autoimmune Disorder: No (04/26/2016 03:15:Suri Rascon RN) Med Hx Kidney Disease/UTI: No (04/26/2016 03:15:Suri Rascon RN) Med Hx Neurologic/Epilepsy: No (04/26/2016 03:15:Suri Rascon RN) Med Hx Psychiatric Disorders: No (04/26/2016 03:15:Suri Rascon RN) Med Hx Hepatitis/Liver Disease: No (04/26/2016 03:15:Suri Rascon RN) Med Hx Varicosities/Phlebitis: No (04/26/2016 03:15:Suri Rascon RN) Med Hx Thyroid Dysfunction: No (04/26/2016 03:15:Suri Rascon RN) Med Hx Trauma/Violence: No (04/26/2016 03:15:Suri Rascon RN) Med Hx Blood Transfusion: No (04/26/2016 03:15:Suri Rascon RN) Med Hx Pulmonary (Asthma,TB): No (04/26/2016 03:15:Suri Rascon RN) Med Hx Breast: No (04/26/2016 03:15:Suri Rascon RN) Med Hx 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 GLUE 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 Surgery: No (04/26/2016 03:15:Suri Rascon RN) Med Hx Hospitalization/Surgery: Yes (04/26/2016 03:15:Suri Rascon RN) Med Hx Anesthetic Complications: No (04/26/2016 03:15:Suri Rascon RN) Med Hx Abnormal Pap Smear: No (04/26/2016 03:15:Suri Rascon RN) Other Medical Diseases: No (04/26/2016 03:15:Suri Rascon RN) Med Hx Significant Family Hx: No (04/26/2016 03:15:Suri Rascon RN) Details of 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 (04/26/2016 03:15:Suri Rascon RN) INFECTIOUS HISTORY Inf Hx Gonorrhea: No (04/26/2016 03:15:Suri Rascon RN) Inf Hx Chlamydia: No (04/26/2016 03:15:Suri Rascon RN) Inf Hx Syphilis: No (04/26/2016 03:15:Suri Rascon RN) Inf Hx HIV/AIDS: No (04/26/2016 03:15:Suri Rascon RN) Inf Hx Human Papilloma Virus: No (04/26/2016 03:15:Suri Rascon RN) Inf Hx Pt/Partner Genital Herpes: No (04/26/2016 03:15:Suri Rascon RN) Inf Hx Tuberculosis/Exposure: No (04/26/2016 03:15:Suri Rascon RN) Inf Hx Hepatitis B,C: No (04/26/2016 03:15:Suri Rascon RN) Inf Hx Rash or Viral Illness: No (04/26/2016 03:15:Suri Rascon RN) GENETIC HISTORY Gen Hx Age >=35 at RONNY: No (04/26/2016 03:15:Suri Rascon RN) Gen Hx Thalassemia: No (04/26/2016 03:15:Suri Rascon RN) Gen Hx Congenital Heart Defect: No (04/26/2016 03:15:Suri Rascon RN) Gen Hx Neural Tube Defect: No (04/26/2016 03:15:Suri Rascon RN) Gen Hx Down's Syndrome: No (04/26/2016 03:15:Suri Rascon RN) Gen Hx Todd-Sachs: No (04/26/2016 03:15:Suri Rascon RN) Gen Hx Danis: No (04/26/2016 03:15:Suri Rascon RN) Gen Hx Familial Dysautonomia: No (04/26/2016 03:15:Suri Rascon RN) Gen Hx Sickle Cell Disease/Trait: No (04/26/2016 03:15:Suri Rascon RN) Gen Hx Hemophilia/Blood Disorder: No (04/26/2016 03:15:Suri Rascon RN) Gen Hx Muscular Dystrophy: No (04/26/2016 03:15:Suri Rascon RN) Gen Hx Cystic Fibrosis: No (04/26/2016 03:15:Suri Rascon RN) Gen Hx Huntingtons Chorea: No (04/26/2016 03:15:Suri Rascon RN) Gen Hx Mental Retardation/Autism: No (04/26/2016 03:15:Suri Rascon RN) Gen Hx Tested for Fragile X: No (04/26/2016 03:15:Suri Rascon RN) Gen Hx Other Inher/Chromosomal: No (04/26/2016 03:15:Suri Rascon RN) Gen Hx Maternal Metabolic DO: No (04/26/2016 03:15:Suri Rascon RN) Gen Hx Pt Father or FOB Defect: No (04/26/2016 03:15:Suri Rascon RN) Gen Hx Other Genetic History: No (04/26/2016 03:15:Suri Rascon RN) Gen Hx Drugs/Meds since LMP: Yes (04/26/2016 03:15:Suri Rascon RN) Gen Hx Medications: PNV (04/26/2016 03:15:Suri Rascon RN)
--- NOTE | 2016-04-30 06:25 | L&D Current Admission ---
Current Admit Datetime Report Generated by CPN: 04/30/2016 06:00 ADMISSION INFORMATION Current Admit Date/Time: 04/26/2016 05:00 (04/26/2016 05:00:Suri Rascon RN) Reason for Admission: Rupture of Membranes; Induction of Labor (04/26/2016 05:00:Suri Rascon RN) Other Reason for Admission: Pt scheduled for induction 04/26/16, SROM at 0330 (04/26/2016 05:00:Suri Rascon RN) Chief Complaint: Suspected Rupture of Membranes (04/26/2016 05:00:Suri Rascon RN) Medications During : Vitamin (04/26/2016 05:00:Suri Rascon RN) EGA per Dates: 41.0 (04/26/2016 05:00:QS system process) Admitted From: Home (04/26/2016 05:00:Suri Rascon RN) Reason for Induction: Postterm (04/26/2016 05:00:Suri Rascon RN) Records Available: Yes (04/26/2016 05:00:Suri Rascon RN) General Admission Information: Reviewed; Updated; Confirmed (04/26/2016 05:00:Suri Rascon RN) General Admission Reviewed By: Jasmin Rascon RN (04/26/2016 05:00:Suri Rascon RN) BELONGINGS/ADVANCED DIRECTIVES Other Belongings: see [facility] belongings form (04/26/2016 05:00:Suri Rascon RN) Advance Direct for Healthcare: No, and Wants No Information (04/26/2016 05:00:Suri Rascon RN) Durable Power of Pharmacist Manager: No (04/26/2016 05:00:Suri Rascon RN) Living Will: No (04/26/2016 05:00:Suri Rascon RN) Organ Donor: Yes (04/26/2016 05:00:Suri Rascon RN) Pt Rights Information Given: Yes (04/26/2016 05:00:Suri Rascon RN) Pt Understands Pt Rights: No (04/26/2016 05:00:Suri Rascon RN) LEARNING ASSESSMENT Knowledge Level: Understands L_D Process (04/26/2016 05:00:Suri Rascon RN) Barriers to Learning: Emotional State; Pain (04/26/2016 05:00:Suri Rascon RN) Learning Readiness: Motivated (04/26/2016 05:00:Suri Rascon RN) Learns Best By: 1 to 1 Instruction (04/26/2016 05:00:Suri Rascon RN) Learning Needs: Labor and Delivery Process; Pain Management; Symptoms to Report; Treatment Plan; Medication; Diagnosis; Nutrition; Equipment; Infant Care (04/26/2016 05:00:Suri Rascon RN) DOMESTIC VIOLANCE SCREENING Dom Viol Threatened/Hurt: No (04/26/2016 05:00:Suri Rascon RN) Hx of Abuse/Neglect past 2yrs: No (04/26/2016 05:00:Suri Rascon RN) Feel Unsafe Going Home: No (04/26/2016 05:00:Suri Rascon RN) Addt'l Observ Indicating Abuse: No (04/26/2016 05:00:Suri Rascon RN) Reason Unable to Complete Screen: N/A, Screen Completed (04/26/2016 05:00:Suri Rascon RN) Considered Personal Harm/Suicide: No (04/26/2016 05:00:Suri Rascon RN) NUTRITIONAL/FUNCTIONAL SCREENING Problem with Appetite >5 Days: No (04/26/2016 05:00:Suri Rascon RN) Chew/Swallow Difficulties: No (04/26/2016 05:00:Suri Rascon RN) Inappropriate Wt Gain/Loss: No (04/26/2016 05:00:Suri Rascon RN) Presence Skin Breakdown/Ulcer: No (04/26/2016 05:00:Suri Rascon RN) Special Diet: No (04/26/2016 05:00:Suri Rascon RN) Pt Requests Oil Well Drilling Manager Visit: No (04/26/2016 05:00:Suri Rascon RN) Hx of Any of the Following?: N/A (04/26/2016 05:00:Suri Rascon RN) New Diagnosis of: N/A (04/26/2016 05:00:Suri Rascon RN) Requires Assist w/Ambulation: No (04/26/2016 05:00:Suri Rascon RN) Uses Assist Device to Ambulate: No (04/26/2016 05:00:Suri Rascon RN) Pt Requires Help w/ADL's: No (04/26/2016 05:00:Suri Rascon RN)
--- NOTE | 2016-04-30 06:25 | L&D General Admission ---
General Admit Datetime Report Generated by CPN: 04/30/2016 06:00 INFORMATION Patient Age: 20 (04/25/2016 16:49:QS system process) EDC: 04/19/2016 00:00 (04/26/2016 03:15:Nhi Ayala RN) : 1 (04/26/2016 03:15:Nhi Ayala RN) Para: 0 (04/26/2016 03:15:Nhi Ayala RN) Term: 0 (04/26/2016 03:15:Nhi Ayala RN) : 0 (04/26/2016 03:15:Nhi Ayala RN) Spontaneous Abortions: 0 (04/26/2016 03:15:Nhi Ayala RN) Induced Abortions: 0 (04/26/2016 03:15:Nhi Ayala RN) Livin (04/26/2016 03:15:Nhi Ayala RN) Baby, Number in Womb: 1 (04/26/2016 03:15:Nhi Ayala RN) CARE Primary Bulk Clerk: [facility] (04/26/2016 03:15:Suri Rascon RN) Adequate Care: Yes (04/26/2016 03:15:Suri Rascon RN) Prepregnancy Weight (lb): 150 (04/26/2016 03:15:Suri Rascon RN) Prepregnancy Weight (kg): 68.2 (04/26/2016 03:15:QS system process) Height (in): 65 (04/26/2016 10:15:QS system process) ALLERGIES Medication Allergy: Yes (04/26/2016 03:15:Rhoda Kim RN) Medication Allergies: Cephalosporins (04/26/2016) (04/26/2016 10:15:QS system process) Latex Allergy: Unknown (04/26/2016 03:15:Suri Rascon RN) COMMUNICATION Primary Language: Pashto (04/26/2016 03:15:Rhoda Kim RN) Medical Tx Preferred Language: Pashto (04/26/2016 03:15:Suri Rascon RN) Communication Barrier(s): None (04/26/2016 03:15:Rhoda Kim RN) DEMOGRAPHICS Address: [address] [place] [id number] (04/25/2016 16:49:QS system process) Zipcode: [id number] (04/25/2016 16:49:QS system process) Home (04/25/2016 16:49:QS system process) SSN: [id number] (04/25/2016 16:49:QS system process) Next of Kin Name: YOSVANY CHERY (04/25/2016 16:49:QS system process) Next of Kin (04/25/2016 16:49:QS system process) Next of Kin Relationship: OR (04/25/2016 16:49:QS system process) Date of : 1995 (04/25/2016 16:49:QS system process) Marital Status: Single (04/25/2016 16:49:QS system process) Sex: Female (04/25/2016 16:49:QS system process) Race: (04/25/2016 16:49:QS system process) Ethnicity: Non- or (04/25/2016 16:49:QS system process) Quaker: None (04/26/2016 08:12:QS system process) DRUG AND ALCOHOL USE Alcohol: No (04/26/2016 03:15:Suri Rascon RN) Cigarettes: Never Smoker. [id number] (04/26/2016 03:15:Suri Rascon RN) Marijuana: No (04/26/2016 03:15:Suri Rascon RN) Cocaine: No (04/26/2016 03:15:Suri Rascon RN) Other Illicit Drugs: No (04/26/2016 03:15:Suri Rascon RN) VACCINE HISTORY Influenza Vaccine: No (04/26/2016 03:15:Suri Rascon RN) Pneumococcal Vaccine: No (04/26/2016 03:15:Suri Rascon RN) Tetanus Vaccine: Yes (04/26/2016 03:15:Suri Rascon RN) Tdap Vaccine: Yes (04/26/2016 03:15:Suri Rascon RN) Hepatitis B Vaccine: Yes (04/26/2016 03:15:Suri Rascon RN) Production Support Developer: Other (04/26/2016 03:15:Suri Rascon RN) Feeding Preference: Breast (04/26/2016 03:15:Suri Rascon RN) Benefit of Breast Feed Discussed: Yes (04/26/2016 03:15:Suri Rascon RN) Circumcision: Yes (04/26/2016 03:15:Suri Rascon RN) Classes Attended: No (04/26/2016 03:15:Suri Rascon RN) Tubal Ligation: No (04/26/2016 03:15:Suri Rascon RN) Tubal Authorization Signed: N/A (04/26/2016 03:15:Suri Rascon RN) Consent: N/A (04/26/2016 03:15:Suri Rascon RN) Consent Signed: N/A (04/26/2016 03:15:Suri Rascon RN) Pain Management Plans: Epidural (04/26/2016 03:15:Suri Rascon RN) Plans for Labor and Delivery: None (04/26/2016 03:15:Suri Rascon RN) Support Person: Rubin Chery (04/26/2016 03:15:Suri Rascon RN) Support Person Relationship: Significant Other (04/26/2016 03:15:Suri Rascon RN) Other Relationship: Boyfriend (04/26/2016 03:15:Suri Rascon RN) Cultural/Spritual Practice: No (04/26/2016 03:15:Suri Rascon RN) Spir/Cult Dietary Needs: No (04/26/2016 03:15:Suri Rascon RN) LIVING SITUATION/DISCHARGE PLAN Living Arrangements: House (04/26/2016 03:15:Suri Rascon RN) Adequate Access to:: Electric; Heat; Refrigeration; Plumbing/Running water; Phone; Transportation (04/26/2016 03:15:Suri Rascon RN) WIC Program: Yes (04/26/2016 03:15:Suri Rascon RN) Discharge Gravure Printing Machinist Person: Rubin Chery (04/26/2016 03:15:Suri Rascon RN) Person to Help after Discharge: Rubin Chery (04/26/2016 03:15:Suri Rascon RN) Currently Using Commun Resources: Yes (04/26/2016 03:15:Suri Rascon RN) Car Seat for Discharge: Yes (04/26/2016 03:15:Suri Rascon RN) Adoption Requested: No (04/26/2016 03:15:Suri Rascon RN) Pt Contact w/ Post : N/A (04/26/2016 03:15:Suri Rascon RN) LABS Blood Type: O Positive (04/26/2016 03:15:Nhi Ayala RN) Antibody Screen: negative (04/26/2016 03:15:Nhi Ayala RN) Hemoglobin: 12.6 (04/27/2016 06:58:QS system process) Hematocrit: 35.5 L (04/27/2016 06:58:QS system process) MCV: 94 (04/27/2016 06:58:QS system process) Group Beta Strep: negative (04/26/2016 03:15:Nhi Ayala RN) Gonorrhea: Negative (04/26/2016 03:15:Nhi Ayala RN) Chlamydia: Negative (04/26/2016 03:15:Nhi Ayala RN) RPR/VDRL: Nonreactive (04/26/2016 03:15:Nhi Ayala RN) HIV Results: nonreactive (04/26/2016 03:15:Nhi Ayala RN) Hepatitis B: Negative (04/26/2016 03:15:Nhi Ayala RN) Rubella: Immune (04/26/2016 03:15:Nhi Ayala RN) Varicella: Non Susceptible (04/26/2016 03:15:Nhi Ayala RN) OB/PREVIOUS HISTORY History of Previous : No (04/26/2016 03:15:Suri Rascon RN) History of Gestational Diabetes: No (04/26/2016 03:15:Suri Rascon RN) History of PIH: No (04/26/2016 03:15:Suri Rascon RN) History of Incompetent Cervix: No (04/26/2016 03:15:Suri Rascon RN) History of Placenta Previa/Abrup: No (04/26/2016 03:15:Suri Rascon RN) History of Macrosomia: No (04/26/2016 03:15:Suri Rascon RN) History of IUGR: No (04/26/2016 03:15:Suri Rascon RN) History of Hemorrhage: No (04/26/2016 03:15:Suri Rascon RN) History of Loss/Stillborn: No (04/26/2016 03:15:Suri Rascon RN) History of : No (04/26/2016 03:15:Suri Rascon RN) History of D (Rh) Sensitization: No (04/26/2016 03:15:Suri Rascon RN) History Recurrent Loss/Stillborn: No (04/26/2016 03:15:Suri Rascon RN) History Depression/PP Depression: No (04/26/2016 03:15:Suri Rascon RN) History of Uterine Anomaly/MORRO: No (04/26/2016 03:15:Suri Rascon RN) History of Infertility: No (04/26/2016 03:15:Suri Rascon RN) History of ART Treatment: No (04/26/2016 03:15:Suri Rascon RN) History of MORRO: No (04/26/2016 03:15:Suri Rascon RN) Comments Obstetrical History: G1: Current (04/26/2016 03:15:Suri Rascon RN) MEDICAL HISTORY Med Hx Diabetes: No (04/26/2016 03:15:Suri Rascon RN) Med Hx Hypertension: No (04/26/2016 03:15:Suri Rascon RN) Med Hx Heart Disease: No (04/26/2016 03:15:Suri Rascon RN) Med Hx Autoimmune Disorder: No (04/26/2016 03:15:Suri Rascon RN) Med Hx Kidney Disease/UTI: No (04/26/2016 03:15:Suri Rascon RN) Med Hx Neurologic/Epilepsy: No (04/26/2016 03:15:Suri Rascon RN) Med Hx Psychiatric Disorders: No (04/26/2016 03:15:Suri Rascon RN) Med Hx Hepatitis/Liver Disease: No (04/26/2016 03:15:Suri Rascon RN) Med Hx Varicosities/Phlebitis: No (04/26/2016 03:15:Suri Rascon RN) Med Hx Thyroid Dysfunction: No (04/26/2016 03:15:Suri Rascon RN) Med Hx Trauma/Violence: No (04/26/2016 03:15:Suri Rascon RN) Med Hx Blood Transfusion: No (04/26/2016 03:15:Suri Rascon RN) Med Hx Pulmonary (Asthma,TB): No (04/26/2016 03:15:Suri Rascon RN) Med Hx Breast: No (04/26/2016 03:15:Suri Rascon RN) Med Hx ENCAPSULATOR Surgery: No (04/26/2016 03:15:Suri Rascon RN) Med Hx Hospitalization/Surgery: Yes (04/26/2016 03:15:Suri Rascon RN) Med Hx Anesthetic Complications: No (04/26/2016 03:15:Suri Rascon RN) Med Hx Abnormal Pap Smear: No (04/26/2016 03:15:Suri Rascon RN) Other Medical Diseases: No (04/26/2016 03:15:Suri Rascon RN) Med Hx Significant Family Hx: No (04/26/2016 03:15:Suri Rascon RN) Details of 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 (04/26/2016 03:15:Suri Rascon RN) INFECTIOUS HISTORY Inf Hx Gonorrhea: No (04/26/2016 03:15:Suri Rascon RN) Inf Hx Chlamydia: No (04/26/2016 03:15:Suri Rascon RN) Inf Hx Syphilis: No (04/26/2016 03:15:Suri Rascon RN) Inf Hx HIV/AIDS: No (04/26/2016 03:15:Suri Rascon RN) Inf Hx Human Papilloma Virus: No (04/26/2016 03:15:Suri Rascon RN) Inf Hx Pt/Partner Genital Herpes: No (04/26/2016 03:15:Suri Rascon RN) Inf Hx Tuberculosis/Exposure: No (04/26/2016 03:15:Suri Rascon RN) Inf Hx Hepatitis B,C: No (04/26/2016 03:15:Suri Rascon RN) Inf Hx Rash or Viral Illness: No (04/26/2016 03:15:Suri Rascon RN) GENETIC HISTORY Gen Hx Age >=35 at RONNY: No (04/26/2016 03:15:Suri Rascon RN) Gen Hx Thalassemia: No (04/26/2016 03:15:Suri Rascon RN) Gen Hx Congenital Heart Defect: No (04/26/2016 03:15:Suri Rascon RN) Gen Hx Neural Tube Defect: No (04/26/2016 03:15:Suri Rascon RN) Gen Hx Down's Syndrome: No (04/26/2016 03:15:Suri Rascon RN) Gen Hx Todd-Sachs: No (04/26/2016 03:15:Suri Rascon RN) Gen Hx Danis: No (04/26/2016 03:15:Suri Rascon RN) Gen Hx Familial Dysautonomia: No (04/26/2016 03:15:Suri Rascon RN) Gen Hx Sickle Cell Disease/Trait: No (04/26/2016 03:15:Suri Rascon RN) Gen Hx Hemophilia/Blood Disorder: No (04/26/2016 03:15:Suri Rascon RN) Gen Hx Muscular Dystrophy: No (04/26/2016 03:15:Suri Rascon RN) Gen Hx Cystic Fibrosis: No (04/26/2016 03:15:Suri Rascon RN) Gen Hx Huntingtons Chorea: No (04/26/2016 03:15:Suri Rascon RN) Gen Hx Mental Retardation/Autism: No (04/26/2016 03:15:Suri Rascon RN) Gen Hx Tested for Fragile X: No (04/26/2016 03:15:Suri Rascon RN) Gen Hx Other Inher/Chromosomal: No (04/26/2016 03:15:Suri Rascon RN) Gen Hx Maternal Metabolic DO: No (04/26/2016 03:15:Suri Rascon RN) Gen Hx Pt Father or FOB Defect: No (04/26/2016 03:15:Suri Rascon RN) Gen Hx Other Genetic History: No (04/26/2016 03:15:Suri Rascon RN) Gen Hx Drugs/Meds since LMP: Yes (04/26/2016 03:15:Suri Rascon RN) Gen Hx Medications: PNV (04/26/2016 03:15:Suri Rascon RN)
--- NOTE | 2016-05-01 06:25 | L&D General Admission ---
General Admit Datetime Report Generated by CPN: 05/01/2016 06:00 INFORMATION Patient Age: 20 (04/25/2016 16:49:QS system process) EDC: 04/19/2016 00:00 (04/26/2016 03:15:Nhi Ayala RN) : 1 (04/26/2016 03:15:Nhi Ayala RN) Para: 0 (04/26/2016 03:15:Nhi Ayala RN) Term: 0 (04/26/2016 03:15:Nhi Ayala RN) : 0 (04/26/2016 03:15:Nhi Ayala RN) Spontaneous Abortions: 0 (04/26/2016 03:15:Nhi Ayala RN) Induced Abortions: 0 (04/26/2016 03:15:Nhi Ayala RN) Livin (04/26/2016 03:15:Nhi Ayala RN) Baby, Number in Womb: 1 (04/26/2016 03:15:Nhi Ayala RN) CARE Primary Plaster Maker: [facility] (04/26/2016 03:15:Suri Rascon RN) Adequate Care: Yes (04/26/2016 03:15:Suri Rascon RN) Prepregnancy Weight (lb): 150 (04/26/2016 03:15:Suri Rascon RN) Prepregnancy Weight (kg): 68.2 (04/26/2016 03:15:QS system process) Height (in): 65 (04/26/2016 10:15:QS system process) ALLERGIES Medication Allergy: Yes (04/26/2016 03:15:Rhoda Kim RN) Medication Allergies: Cephalosporins (04/26/2016) (04/26/2016 10:15:QS system process) Latex Allergy: Unknown (04/26/2016 03:15:Suri Rascon RN) COMMUNICATION Primary Language: Divehi (04/26/2016 03:15:Rhoda Kim RN) Medical Tx Preferred Language: Divehi (04/26/2016 03:15:Suri Rascon RN) Communication Barrier(s): None (04/26/2016 03:15:Rhoda Kim RN) DEMOGRAPHICS Address: [address] [place] [id number] (04/25/2016 16:49:QS system process) Zipcode: [phone] (04/25/2016 16:49:QS system process) Home (04/25/2016 16:49:QS system process) SSN: [id number] (04/25/2016 16:49:QS system process) Next of Kin Name: YOSVANY CHERY (04/25/2016 16:49:QS system process) Next of Kin (04/25/2016 16:49:QS system process) Next of Kin Relationship: OR (04/25/2016 16:49:QS system process) Date of : 1995 (04/25/2016 16:49:QS system process) Marital Status: Single (04/25/2016 16:49:QS system process) Sex: Female (04/25/2016 16:49:QS system process) Race: (04/25/2016 16:49:QS system process) Ethnicity: Non- or (04/25/2016 16:49:QS system process) Zoroastrian: None (04/26/2016 08:12:QS system process) DRUG AND ALCOHOL USE Alcohol: No (04/26/2016 03:15:Suri Rascon RN) Cigarettes: Never Smoker. [id number] (04/26/2016 03:15:Suri Rascon RN) Marijuana: No (04/26/2016 03:15:Suri Rascon RN) Cocaine: No (04/26/2016 03:15:Suri Rascon RN) Other Illicit Drugs: No (04/26/2016 03:15:Suri Rascon RN) VACCINE HISTORY Influenza Vaccine: No (04/26/2016 03:15:Suri Rascon RN) Pneumococcal Vaccine: No (04/26/2016 03:15:Suri Rascon RN) Tetanus Vaccine: Yes (04/26/2016 03:15:Suri Rascon RN) Tdap Vaccine: Yes (04/26/2016 03:15:Suri Rascon RN) Hepatitis B Vaccine: Yes (04/26/2016 03:15:Suri Rascon RN) Cloth Washer Operator: Other (04/26/2016 03:15:Suri Rascon RN) Feeding Preference: Breast (04/26/2016 03:15:Suri Rascon RN) Benefit of Breast Feed Discussed: Yes (04/26/2016 03:15:Suri Rascon RN) Circumcision: Yes (04/26/2016 03:15:Suri Rascon RN) Classes Attended: No (04/26/2016 03:15:Suri Rascon RN) Tubal Ligation: No (04/26/2016 03:15:Suri Rascon RN) Tubal Authorization Signed: N/A (04/26/2016 03:15:Suri Rascon RN) Consent: N/A (04/26/2016 03:15:Suri Rascon RN) Consent Signed: N/A (04/26/2016 03:15:Suri Rascon RN) Pain Management Plans: Epidural (04/26/2016 03:15:Suri Rascon RN) Plans for Labor and Delivery: None (04/26/2016 03:15:Suri Rascon RN) Support Person: Rubin Chery (04/26/2016 03:15:Suri Rascon RN) Support Person Relationship: Significant Other (04/26/2016 03:15:Suri Rascon RN) Other Relationship: Boyfriend (04/26/2016 03:15:Suri Rascon RN) Cultural/Spritual Practice: No (04/26/2016 03:15:Suri Rascon RN) Spir/Cult Dietary Needs: No (04/26/2016 03:15:Suri Rascon RN) LIVING SITUATION/DISCHARGE PLAN Living Arrangements: House (04/26/2016 03:15:Suri Rascon RN) Adequate Access to:: Electric; Heat; Refrigeration; Plumbing/Running water; Phone; Transportation (04/26/2016 03:15:Suri Rascon RN) WIC Program: Yes (04/26/2016 03:15:Suri Rascon RN) Discharge Boil Off Worker Person: Rubin Chery (04/26/2016 03:15:Suri Rascon RN) Person to Help after Discharge: Rubin Chery (04/26/2016 03:15:Suri Rascon RN) Currently Using Commun Resources: Yes (04/26/2016 03:15:Suri Rascon RN) Car Seat for Discharge: Yes (04/26/2016 03:15:Suri Rascon RN) Adoption Requested: No (04/26/2016 03:15:Suri Rascon RN) Pt Contact w/ Post : N/A (04/26/2016 03:15:Suri Rascon RN) LABS Blood Type: O Positive (04/26/2016 03:15:Nhi Ayala RN) Antibody Screen: negative (04/26/2016 03:15:Nhi Ayala RN) Hemoglobin: 12.6 (04/27/2016 06:58:QS system process) Hematocrit: 35.5 L (04/27/2016 06:58:QS system process) MCV: 94 (04/27/2016 06:58:QS system process) Group Beta Strep: negative (04/26/2016 03:15:Nhi Ayala RN) Gonorrhea: Negative (04/26/2016 03:15:Nhi Ayala RN) Chlamydia: Negative (04/26/2016 03:15:Nhi Ayala RN) RPR/VDRL: Nonreactive (04/26/2016 03:15:Nhi Ayala RN) HIV Results: nonreactive (04/26/2016 03:15:Nhi Ayala RN) Hepatitis B: Negative (04/26/2016 03:15:Nhi Ayala RN) Rubella: Immune (04/26/2016 03:15:Nhi Ayala RN) Varicella: Non Susceptible (04/26/2016 03:15:Nhi Ayala RN) OB/PREVIOUS HISTORY History of Previous : No (04/26/2016 03:15:Suri Rascon RN) History of Gestational Diabetes: No (04/26/2016 03:15:Suri Rascon RN) History of PIH: No (04/26/2016 03:15:Suri Rascon RN) History of Incompetent Cervix: No (04/26/2016 03:15:Suri Rascon RN) History of Placenta Previa/Abrup: No (04/26/2016 03:15:Suri Rascon RN) History of Macrosomia: No (04/26/2016 03:15:Suri Rascon RN) History of IUGR: No (04/26/2016 03:15:Suri Rascon RN) History of Hemorrhage: No (04/26/2016 03:15:Suri Rascon RN) History of Loss/Stillborn: No (04/26/2016 03:15:Suri Rascon RN) History of : No (04/26/2016 03:15:Suri Rascon RN) History of D (Rh) Sensitization: No (04/26/2016 03:15:Suri Rascon RN) History Recurrent Loss/Stillborn: No (04/26/2016 03:15:Suri Rascon RN) History Depression/PP Depression: No (04/26/2016 03:15:Suri Rascon RN) History of Uterine Anomaly/MORRO: No (04/26/2016 03:15:Suri Rascon RN) History of Infertility: No (04/26/2016 03:15:Suri Rascon RN) History of ART Treatment: No (04/26/2016 03:15:Suri Rascon RN) History of MORRO: No (04/26/2016 03:15:Suri Rascon RN) Comments Obstetrical History: G1: Current (04/26/2016 03:15:Suri Rascon RN) MEDICAL HISTORY Med Hx Diabetes: No (04/26/2016 03:15:Suri Rascon RN) Med Hx Hypertension: No (04/26/2016 03:15:Suri Rascon RN) Med Hx Heart Disease: No (04/26/2016 03:15:Suri Rascon RN) Med Hx Autoimmune Disorder: No (04/26/2016 03:15:Suri Rascon RN) Med Hx Kidney Disease/UTI: No (04/26/2016 03:15:Suri Rascon RN) Med Hx Neurologic/Epilepsy: No (04/26/2016 03:15:Suri Rascon RN) Med Hx Psychiatric Disorders: No (04/26/2016 03:15:Suri Rascon RN) Med Hx Hepatitis/Liver Disease: No (04/26/2016 03:15:Suri Rascon RN) Med Hx Varicosities/Phlebitis: No (04/26/2016 03:15:Suri Rascon RN) Med Hx Thyroid Dysfunction: No (04/26/2016 03:15:Suri Rascon RN) Med Hx Trauma/Violence: No (04/26/2016 03:15:Suri Rascon RN) Med Hx Blood Transfusion: No (04/26/2016 03:15:Suri Rascon RN) Med Hx Pulmonary (Asthma,TB): No (04/26/2016 03:15:Suri Rascon RN) Med Hx Breast: No (04/26/2016 03:15:Suri Rascon RN) Med Hx HOSE MENDER Surgery: No (04/26/2016 03:15:Suri Rascon RN) Med Hx Hospitalization/Surgery: Yes (04/26/2016 03:15:Suri Rascon RN) Med Hx Anesthetic Complications: No (04/26/2016 03:15:Suri Rascon RN) Med Hx Abnormal Pap Smear: No (04/26/2016 03:15:Suri Rascon RN) Other Medical Diseases: No (04/26/2016 03:15:Suri Rascon RN) Med Hx Significant Family Hx: No (04/26/2016 03:15:Suri Rascon RN) Details of 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 (04/26/2016 03:15:Suri Rascon RN) INFECTIOUS HISTORY Inf Hx Gonorrhea: No (04/26/2016 03:15:Suri Rascon RN) Inf Hx Chlamydia: No (04/26/2016 03:15:Suri Rascon RN) Inf Hx Syphilis: No (04/26/2016 03:15:Suri Rascon RN) Inf Hx HIV/AIDS: No (04/26/2016 03:15:Suri Rascon RN) Inf Hx Human Papilloma Virus: No (04/26/2016 03:15:Suri Rascon RN) Inf Hx Pt/Partner Genital Herpes: No (04/26/2016 03:15:Suri Rascon RN) Inf Hx Tuberculosis/Exposure: No (04/26/2016 03:15:Suri Rascon RN) Inf Hx Hepatitis B,C: No (04/26/2016 03:15:Suri Rascon RN) Inf Hx Rash or Viral Illness: No (04/26/2016 03:15:Suri Rascon RN) GENETIC HISTORY Gen Hx Age >=35 at RONNY: No (04/26/2016 03:15:Suri Rascon RN) Gen Hx Thalassemia: No (04/26/2016 03:15:Suri Rascon RN) Gen Hx Congenital Heart Defect: No (04/26/2016 03:15:Suri Rascon RN) Gen Hx Neural Tube Defect: No (04/26/2016 03:15:Suri Rascon RN) Gen Hx Down's Syndrome: No (04/26/2016 03:15:Suri Rascon RN) Gen Hx Todd-Sachs: No (04/26/2016 03:15:Suri Rascon RN) Gen Hx Danis: No (04/26/2016 03:15:Suri Rascon RN) Gen Hx Familial Dysautonomia: No (04/26/2016 03:15:Suri Rascon RN) Gen Hx Sickle Cell Disease/Trait: No (04/26/2016 03:15:Suri Rascon RN) Gen Hx Hemophilia/Blood Disorder: No (04/26/2016 03:15:Suri Rascon RN) Gen Hx Muscular Dystrophy: No (04/26/2016 03:15:Suri Rascon RN) Gen Hx Cystic Fibrosis: No (04/26/2016 03:15:Suri Rascon RN) Gen Hx Huntingtons Chorea: No (04/26/2016 03:15:Suri Rascon RN) Gen Hx Mental Retardation/Autism: No (04/26/2016 03:15:Suri Rascon RN) Gen Hx Tested for Fragile X: No (04/26/2016 03:15:Suri Rascon RN) Gen Hx Other Inher/Chromosomal: No (04/26/2016 03:15:Suri Rascon RN) Gen Hx Maternal Metabolic DO: No (04/26/2016 03:15:Suri Rascon RN) Gen Hx Pt Father or FOB Defect: No (04/26/2016 03:15:Suri Rascon RN) Gen Hx Other Genetic History: No (04/26/2016 03:15:Suri Rascon RN) Gen Hx Drugs/Meds since LMP: Yes (04/26/2016 03:15:Suri Rascon RN) Gen Hx Medications: PNV (04/26/2016 03:15:Suri Rascon RN)
--- NOTE | 2016-05-01 06:25 | L&D Current Admission ---
Current Admit Datetime Report Generated by CPN: 05/01/2016 06:00 ADMISSION INFORMATION Current Admit Date/Time: 04/26/2016 05:00 (04/26/2016 05:00:Suri Rascon RN) Reason for Admission: Rupture of Membranes; Induction of Labor (04/26/2016 05:00:Suri Rascon RN) Other Reason for Admission: Pt scheduled for induction 04/26/16, SROM at 0330 (04/26/2016 05:00:Suri Rascon RN) Chief Complaint: Suspected Rupture of Membranes (04/26/2016 05:00:Suri Rascon RN) Medications During : Vitamin (04/26/2016 05:00:Suri Rascon RN) EGA per Dates: 41.0 (04/26/2016 05:00:QS system process) Admitted From: Home (04/26/2016 05:00:Suri Rascon RN) Reason for Induction: Postterm (04/26/2016 05:00:Suri Rascon RN) Records Available: Yes (04/26/2016 05:00:Suri Rascon RN) General Admission Information: Reviewed; Updated; Confirmed (04/26/2016 05:00:Suri Rascon RN) General Admission Reviewed By: Jasmin Rascon RN (04/26/2016 05:00:Suri Rascon RN) BELONGINGS/ADVANCED DIRECTIVES Other Belongings: see [facility] belongings form (04/26/2016 05:00:Suri Rascon RN) Advance Direct for Healthcare: No, and Wants No Information (04/26/2016 05:00:Suri Rascon RN) Durable Power of Wellness Manager: No (04/26/2016 05:00:Suri Rascon RN) Living Will: No (04/26/2016 05:00:Suri Rascon RN) Organ Donor: Yes (04/26/2016 05:00:Suri Rascon RN) Pt Rights Information Given: Yes (04/26/2016 05:00:Suri Rascon RN) Pt Understands Pt Rights: No (04/26/2016 05:00:Suri Rascon RN) LEARNING ASSESSMENT Knowledge Level: Understands L_D Process (04/26/2016 05:00:Suri Rascon RN) Barriers to Learning: Emotional State; Pain (04/26/2016 05:00:Suri Rascon RN) Learning Readiness: Motivated (04/26/2016 05:00:Suri Rascon RN) Learns Best By: 1 to 1 Instruction (04/26/2016 05:00:Suri aRscon RN) Learning Needs: Labor and Delivery Process; Pain Management; Symptoms to Report; Treatment Plan; Medication; Diagnosis; Nutrition; Equipment; Infant Care (04/26/2016 05:00:Suri Rascon RN) DOMESTIC VIOLANCE SCREENING Dom Viol Threatened/Hurt: No (04/26/2016 05:00:Suri Rascon RN) Hx of Abuse/Neglect past 2yrs: No (04/26/2016 05:00:Suri Rascon RN) Feel Unsafe Going Home: No (04/26/2016 05:00:Suri Rascon RN) Addt'l Observ Indicating Abuse: No (04/26/2016 05:00:Suri Rascon RN) Reason Unable to Complete Screen: N/A, Screen Completed (04/26/2016 05:00:Suri Rascon RN) Considered Personal Harm/Suicide: No (04/26/2016 05:00:Suri Rascon RN) NUTRITIONAL/FUNCTIONAL SCREENING Problem with Appetite >5 Days: No (04/26/2016 05:00:Suri Rascon RN) Chew/Swallow Difficulties: No (04/26/2016 05:00:Suri Rascon RN) Inappropriate Wt Gain/Loss: No (04/26/2016 05:00:Suri Rascon RN) Presence Skin Breakdown/Ulcer: No (04/26/2016 05:00:Suri Rascon RN) Special Diet: No (04/26/2016 05:00:Suri Rascon RN) Pt Requests Hot Box Checker Visit: No (04/26/2016 05:00:Suri Rascon RN) Hx of Any of the Following?: N/A (04/26/2016 05:00:Suri Rascon RN) New Diagnosis of: N/A (04/26/2016 05:00:Suri Rascon RN) Requires Assist w/Ambulation: No (04/26/2016 05:00:Suri Rascon RN) Uses Assist Device to Ambulate: No (04/26/2016 05:00:Suri Rascon RN) Pt Requires Help w/ADL's: No (04/26/2016 05:00:Suri Rascon RN)
--- NOTE | 2016-05-02 06:26 | L&D General Admission ---
General Admit Datetime Report Generated by CPN: 05/02/2016 06:00 INFORMATION Patient Age: 20 (04/25/2016 16:49:QS system process) EDC: 04/19/2016 00:00 (04/26/2016 03:15:Nhi Ayala RN) : 1 (04/26/2016 03:15:Nhi Ayala RN) Para: 0 (04/26/2016 03:15:Nhi Ayala RN) Term: 0 (04/26/2016 03:15:Nhi Ayala RN) : 0 (04/26/2016 03:15:Nhi Ayala RN) Spontaneous Abortions: 0 (04/26/2016 03:15:Nhi Ayala RN) Induced Abortions: 0 (04/26/2016 03:15:Nhi Ayala RN) Livin (04/26/2016 03:15:Nhi Ayala RN) Baby, Number in Womb: 1 (04/26/2016 03:15:Nhi Ayala RN) CARE Primary Ticket Collector: [facility] (04/26/2016 03:15:Suri Rascon RN) Adequate Care: Yes (04/26/2016 03:15:Suri Rascon RN) Prepregnancy Weight (lb): 150 (04/26/2016 03:15:Suri Rascon RN) Prepregnancy Weight (kg): 68.2 (04/26/2016 03:15:QS system process) Height (in): 65 (04/26/2016 10:15:QS system process) ALLERGIES Medication Allergy: Yes (04/26/2016 03:15:Rhoda Kim RN) Medication Allergies: Cephalosporins (04/26/2016) (04/26/2016 10:15:QS system process) Latex Allergy: Unknown (04/26/2016 03:15:Suri Rascon RN) COMMUNICATION Primary Language: Occitan (04/26/2016 03:15:Rhoda Kim RN) Medical Tx Preferred Language: Occitan (04/26/2016 03:15:Suri Rascon RN) Communication Barrier(s): None (04/26/2016 03:15:Rhoda Kim RN) DEMOGRAPHICS Address: [address] [place] [id number] (04/25/2016 16:49:QS system process) Zipcode: [phone] (04/25/2016 16:49:QS system process) Home (04/25/2016 16:49:QS system process) SSN: [id number] (04/25/2016 16:49:QS system process) Next of Kin Name: YOSVANY CHERY (04/25/2016 16:49:QS system process) Next of Kin (04/25/2016 16:49:QS system process) Next of Kin Relationship: OR (04/25/2016 16:49:QS system process) Date of : 1995 (04/25/2016 16:49:QS system process) Marital Status: Single (04/25/2016 16:49:QS system process) Sex: Female (04/25/2016 16:49:QS system process) Race: (04/25/2016 16:49:QS system process) Ethnicity: Non- or (04/25/2016 16:49:QS system process) Zoroastrian: None (04/26/2016 08:12:QS system process) DRUG AND ALCOHOL USE Alcohol: No (04/26/2016 03:15:Suri Rascon RN) Cigarettes: Never Smoker. [id number] (04/26/2016 03:15:Suri Rascon RN) Marijuana: No (04/26/2016 03:15:Suri Rascon RN) Cocaine: No (04/26/2016 03:15:Suri Rascon RN) Other Illicit Drugs: No (04/26/2016 03:15:Suri Rascon RN) VACCINE HISTORY Influenza Vaccine: No (04/26/2016 03:15:Suri Rascon RN) Pneumococcal Vaccine: No (04/26/2016 03:15:Suri Rascon RN) Tetanus Vaccine: Yes (04/26/2016 03:15:Suri Rascon RN) Tdap Vaccine: Yes (04/26/2016 03:15:Suri Rascon RN) Hepatitis B Vaccine: Yes (04/26/2016 03:15:Suri Rascon RN) Wind Farm Engineer: Other (04/26/2016 03:15:Suri Rascon RN) Feeding Preference: Breast (04/26/2016 03:15:Suri Rascon RN) Benefit of Breast Feed Discussed: Yes (04/26/2016 03:15:Suri Rascon RN) Circumcision: Yes (04/26/2016 03:15:Suri Rascon RN) Classes Attended: No (04/26/2016 03:15:Suri Rascon RN) Tubal Ligation: No (04/26/2016 03:15:Suri Rascon RN) Tubal Authorization Signed: N/A (04/26/2016 03:15:Suri Rascon RN) Consent: N/A (04/26/2016 03:15:Suri Rascon RN) Consent Signed: N/A (04/26/2016 03:15:Suri Rascon RN) Pain Management Plans: Epidural (04/26/2016 03:15:Suri Rascon RN) Plans for Labor and Delivery: None (04/26/2016 03:15:Suri Rascon RN) Support Person: Rubin Chery (04/26/2016 03:15:Suri Rascon RN) Support Person Relationship: Significant Other (04/26/2016 03:15:Suri Rascon RN) Other Relationship: Boyfriend (04/26/2016 03:15:Suri Rascon RN) Cultural/Spritual Practice: No (04/26/2016 03:15:Suri Rascon RN) Spir/Cult Dietary Needs: No (04/26/2016 03:15:Suri Rascon RN) LIVING SITUATION/DISCHARGE PLAN Living Arrangements: House (04/26/2016 03:15:Suri Rascon RN) Adequate Access to:: Electric; Heat; Refrigeration; Plumbing/Running water; Phone; Transportation (04/26/2016 03:15:Suri Rascon RN) WIC Program: Yes (04/26/2016 03:15:Suri Rascon RN) Discharge Newspaper Stuffer Person: Rubin Chery (04/26/2016 03:15:Suri Rascon RN) Person to Help after Discharge: Rubin Chery (04/26/2016 03:15:Suri Rascon RN) Currently Using Commun Resources: Yes (04/26/2016 03:15:Suri Rascon RN) Car Seat for Discharge: Yes (04/26/2016 03:15:Suri Rascon RN) Adoption Requested: No (04/26/2016 03:15:Suri Rascon RN) Pt Contact w/ Post : N/A (04/26/2016 03:15:Suri Rascon RN) LABS Blood Type: O Positive (04/26/2016 03:15:Nhi Ayala RN) Antibody Screen: negative (04/26/2016 03:15:Nhi Ayala RN) Hemoglobin: 12.6 (04/27/2016 06:58:QS system process) Hematocrit: 35.5 L (04/27/2016 06:58:QS system process) MCV: 94 (04/27/2016 06:58:QS system process) Group Beta Strep: negative (04/26/2016 03:15:Nhi Ayala RN) Gonorrhea: Negative (04/26/2016 03:15:Nhi Ayala RN) Chlamydia: Negative (04/26/2016 03:15:Nhi Ayala RN) RPR/VDRL: Nonreactive (04/26/2016 03:15:Nhi Ayala RN) HIV Results: nonreactive (04/26/2016 03:15:Nhi Ayala RN) Hepatitis B: Negative (04/26/2016 03:15:Nhi Ayala RN) Rubella: Immune (04/26/2016 03:15:Nhi Ayala RN) Varicella: Non Susceptible (04/26/2016 03:15:Nhi Ayala RN) OB/PREVIOUS HISTORY History of Previous : No (04/26/2016 03:15:Suri Rascon RN) History of Gestational Diabetes: No (04/26/2016 03:15:Suri Rascon RN) History of PIH: No (04/26/2016 03:15:Suri Rascon RN) History of Incompetent Cervix: No (04/26/2016 03:15:Suri Rascon RN) History of Placenta Previa/Abrup: No (04/26/2016 03:15:Suri Rascon RN) History of Macrosomia: No (04/26/2016 03:15:Suri Rascon RN) History of IUGR: No (04/26/2016 03:15:Suri Rascon RN) History of Hemorrhage: No (04/26/2016 03:15:Suri Rascon RN) History of Loss/Stillborn: No (04/26/2016 03:15:Suri Rascon RN) History of : No (04/26/2016 03:15:Suri Rascon RN) History of D (Rh) Sensitization: No (04/26/2016 03:15:Suri Rascon RN) History Recurrent Loss/Stillborn: No (04/26/2016 03:15:Suri Rascon RN) History Depression/PP Depression: No (04/26/2016 03:15:Suri Rascon RN) History of Uterine Anomaly/MORRO: No (04/26/2016 03:15:Suri Rascon RN) History of Infertility: No (04/26/2016 03:15:Suri Rascon RN) History of ART Treatment: No (04/26/2016 03:15:Suri Rascon RN) History of MORRO: No (04/26/2016 03:15:Suri Rascon RN) Comments Obstetrical History: G1: Current (04/26/2016 03:15:Suri Rascon RN) MEDICAL HISTORY Med Hx Diabetes: No (04/26/2016 03:15:Suri Rascon RN) Med Hx Hypertension: No (04/26/2016 03:15:Suri Rascon RN) Med Hx Heart Disease: No (04/26/2016 03:15:Suri Rascon RN) Med Hx Autoimmune Disorder: No (04/26/2016 03:15:Suri Rascon RN) Med Hx Kidney Disease/UTI: No (04/26/2016 03:15:Suri Rascon RN) Med Hx Neurologic/Epilepsy: No (04/26/2016 03:15:Suri Rascon RN) Med Hx Psychiatric Disorders: No (04/26/2016 03:15:Suri Rascon RN) Med Hx Hepatitis/Liver Disease: No (04/26/2016 03:15:Suri Rascon RN) Med Hx Varicosities/Phlebitis: No (04/26/2016 03:15:Suri Rascon RN) Med Hx Thyroid Dysfunction: No (04/26/2016 03:15:Suri Rascon RN) Med Hx Trauma/Violence: No (04/26/2016 03:15:Suri Rascon RN) Med Hx Blood Transfusion: No (04/26/2016 03:15:Suri Rascon RN) Med Hx Pulmonary (Asthma,TB): No (04/26/2016 03:15:Suri Rascon RN) Med Hx Breast: No (04/26/2016 03:15:Suri Rascon RN) Med Hx TILER Surgery: No (04/26/2016 03:15:Suri Rascon RN) Med Hx Hospitalization/Surgery: Yes (04/26/2016 03:15:Suri Rascon RN) Med Hx Anesthetic Complications: No (04/26/2016 03:15:Suri Rascon RN) Med Hx Abnormal Pap Smear: No (04/26/2016 03:15:Suri Rascon RN) Other Medical Diseases: No (04/26/2016 03:15:Suri Rascon RN) Med Hx Significant Family Hx: No (04/26/2016 03:15:Suri Rascon RN) Details of 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 (04/26/2016 03:15:Suri Rascon RN) INFECTIOUS HISTORY Inf Hx Gonorrhea: No (04/26/2016 03:15:Suri Rascon RN) Inf Hx Chlamydia: No (04/26/2016 03:15:Suri Rascon RN) Inf Hx Syphilis: No (04/26/2016 03:15:Suri Rascon RN) Inf Hx HIV/AIDS: No (04/26/2016 03:15:Suri Rascon RN) Inf Hx Human Papilloma Virus: No (04/26/2016 03:15:Suri Rascon RN) Inf Hx Pt/Partner Genital Herpes: No (04/26/2016 03:15:Suri Rascon RN) Inf Hx Tuberculosis/Exposure: No (04/26/2016 03:15:Suri Rascon RN) Inf Hx Hepatitis B,C: No (04/26/2016 03:15:Suri Rascon RN) Inf Hx Rash or Viral Illness: No (04/26/2016 03:15:Suri Rascon RN) GENETIC HISTORY Gen Hx Age >=35 at RONNY: No (04/26/2016 03:15:Suri Rascon RN) Gen Hx Thalassemia: No (04/26/2016 03:15:Suri Rascon RN) Gen Hx Congenital Heart Defect: No (04/26/2016 03:15:Suri Rascon RN) Gen Hx Neural Tube Defect: No (04/26/2016 03:15:Suri Rascon RN) Gen Hx Down's Syndrome: No (04/26/2016 03:15:Suri Rascon RN) Gen Hx Todd-Sachs: No (04/26/2016 03:15:Suri Rascon RN) Gen Hx Danis: No (04/26/2016 03:15:Suri Rascon RN) Gen Hx Familial Dysautonomia: No (04/26/2016 03:15:Suri Rascon RN) Gen Hx Sickle Cell Disease/Trait: No (04/26/2016 03:15:Suri Rascon RN) Gen Hx Hemophilia/Blood Disorder: No (04/26/2016 03:15:Suri Rascon RN) Gen Hx Muscular Dystrophy: No (04/26/2016 03:15:Suri Rascon RN) Gen Hx Cystic Fibrosis: No (04/26/2016 03:15:Suri Rascon RN) Gen Hx Huntingtons Chorea: No (04/26/2016 03:15:Suri Rascon RN) Gen Hx Mental Retardation/Autism: No (04/26/2016 03:15:Suri Rascon RN) Gen Hx Tested for Fragile X: No (04/26/2016 03:15:Suri Rascon RN) Gen Hx Other Inher/Chromosomal: No (04/26/2016 03:15:Suri Rascon RN) Gen Hx Maternal Metabolic DO: No (04/26/2016 03:15:Suri Rascon RN) Gen Hx Pt Father or FOB Defect: No (04/26/2016 03:15:Suri Rascon RN) Gen Hx Other Genetic History: No (04/26/2016 03:15:Suri Rascon RN) Gen Hx Drugs/Meds since LMP: Yes (04/26/2016 03:15:Suri Rascon RN) Gen Hx Medications: PNV (04/26/2016 03:15:Suri Rascon RN)
--- NOTE | 2016-05-02 06:26 | L&D Current Admission ---
Current Admit Datetime Report Generated by CPN: 05/02/2016 06:00 ADMISSION INFORMATION Current Admit Date/Time: 04/26/2016 05:00 (04/26/2016 05:00:Suri Rascon RN) Reason for Admission: Rupture of Membranes; Induction of Labor (04/26/2016 05:00:Suri Rascon RN) Other Reason for Admission: Pt scheduled for induction 04/26/16, SROM at 0330 (04/26/2016 05:00:Suri Rascon RN) Chief Complaint: Suspected Rupture of Membranes (04/26/2016 05:00:Suri Rascon RN) Medications During : Vitamin (04/26/2016 05:00:Suri Rascon RN) EGA per Dates: 41.0 (04/26/2016 05:00:QS system process) Admitted From: Home (04/26/2016 05:00:Suri Rascon RN) Reason for Induction: Postterm (04/26/2016 05:00:Suri Rascon RN) Records Available: Yes (04/26/2016 05:00:Suri Rascon RN) General Admission Information: Reviewed; Updated; Confirmed (04/26/2016 05:00:Suri Rascon RN) General Admission Reviewed By: Jasmin Rascon RN (04/26/2016 05:00:Suri Rascon RN) BELONGINGS/ADVANCED DIRECTIVES Other Belongings: see [facility] belongings form (04/26/2016 05:00:Suri Rascon RN) Advance Direct for Healthcare: No, and Wants No Information (04/26/2016 05:00:Suri Rascon RN) Durable Power of Head Buyer Tobacco: No (04/26/2016 05:00:Suri Rascon RN) Living Will: No (04/26/2016 05:00:Suri Rascon RN) Organ Donor: Yes (04/26/2016 05:00:Suri Rascon RN) Pt Rights Information Given: Yes (04/26/2016 05:00:Suri Rascon RN) Pt Understands Pt Rights: No (04/26/2016 05:00:Suri Rascon RN) LEARNING ASSESSMENT Knowledge Level: Understands L_D Process (04/26/2016 05:00:Suri Rascon RN) Barriers to Learning: Emotional State; Pain (04/26/2016 05:00:Suri Rascon RN) Learning Readiness: Motivated (04/26/2016 05:00:Suri Rascon RN) Learns Best By: 1 to 1 Instruction (04/26/2016 05:00:uSri Rascon RN) Learning Needs: Labor and Delivery Process; Pain Management; Symptoms to Report; Treatment Plan; Medication; Diagnosis; Nutrition; Equipment; Infant Care (04/26/2016 05:00:Suri Rascon RN) DOMESTIC VIOLANCE SCREENING Dom Viol Threatened/Hurt: No (04/26/2016 05:00:Suri Rascon RN) Hx of Abuse/Neglect past 2yrs: No (04/26/2016 05:00:Suri Rascon RN) Feel Unsafe Going Home: No (04/26/2016 05:00:Suri Rascon RN) Addt'l Observ Indicating Abuse: No (04/26/2016 05:00:Suri Rascon RN) Reason Unable to Complete Screen: N/A, Screen Completed (04/26/2016 05:00:Suri Rascon RN) Considered Personal Harm/Suicide: No (04/26/2016 05:00:Suri Rascon RN) NUTRITIONAL/FUNCTIONAL SCREENING Problem with Appetite >5 Days: No (04/26/2016 05:00:Suri Rascon RN) Chew/Swallow Difficulties: No (04/26/2016 05:00:Suri Rascon RN) Inappropriate Wt Gain/Loss: No (04/26/2016 05:00:Suri Rascon RN) Presence Skin Breakdown/Ulcer: No (04/26/2016 05:00:Suri Rascon RN) Special Diet: No (04/26/2016 05:00:Suri Rascon RN) Pt Requests Orthodontic Laboratory Technician Visit: No (04/26/2016 05:00:Suri Rascon RN) Hx of Any of the Following?: N/A (04/26/2016 05:00:Suri Rascon RN) New Diagnosis of: N/A (04/26/2016 05:00:Suri Rascon RN) Requires Assist w/Ambulation: No (04/26/2016 05:00:Suri Rascon RN) Uses Assist Device to Ambulate: No (04/26/2016 05:00:Suri Rascon RN) Pt Requires Help w/ADL's: No (04/26/2016 05:00:Suri Rascon RN)
--- NOTE | 2016-05-03 06:26 | L&D Current Admission ---
Current Admit Datetime Report Generated by CPN: 05/03/2016 06:00 ADMISSION INFORMATION Current Admit Date/Time: 04/26/2016 05:00 (04/26/2016 05:00:Suri Rascon RN) Reason for Admission: Rupture of Membranes; Induction of Labor (04/26/2016 05:00:Suri Rascon RN) Other Reason for Admission: Pt scheduled for induction 04/26/16, SROM at 0330 (04/26/2016 05:00:Suri Rascon RN) Chief Complaint: Suspected Rupture of Membranes (04/26/2016 05:00:Suri Rascon RN) Medications During : Vitamin (04/26/2016 05:00:Suri Rascon RN) EGA per Dates: 41.0 (04/26/2016 05:00:QS system process) Admitted From: Home (04/26/2016 05:00:Suri Rascon RN) Reason for Induction: Postterm (04/26/2016 05:00:Suri Rascon RN) Records Available: Yes (04/26/2016 05:00:Suri Rascon RN) General Admission Information: Reviewed; Updated; Confirmed (04/26/2016 05:00:Suri Rascon RN) General Admission Reviewed By: Jasmin Rascon RN (04/26/2016 05:00:Suri Rascon RN) BELONGINGS/ADVANCED DIRECTIVES Other Belongings: see [facility] belongings form (04/26/2016 05:00:Suri Rascon RN) Advance Direct for Healthcare: No, and Wants No Information (04/26/2016 05:00:Suri Rascon RN) Durable Power of Collection Advisor: No (04/26/2016 05:00:Suri Rascon RN) Living Will: No (04/26/2016 05:00:Suri Rascon RN) Organ Donor: Yes (04/26/2016 05:00:Suri Rascon RN) Pt Rights Information Given: Yes (04/26/2016 05:00:Suri Rascon RN) Pt Understands Pt Rights: No (04/26/2016 05:00:Suri Rascon RN) LEARNING ASSESSMENT Knowledge Level: Understands L_D Process (04/26/2016 05:00:Suri Rascon RN) Barriers to Learning: Emotional State; Pain (04/26/2016 05:00:Suri Rascon RN) Learning Readiness: Motivated (04/26/2016 05:00:Suri Rascon RN) Learns Best By: 1 to 1 Instruction (04/26/2016 05:00:Suri Rascon RN) Learning Needs: Labor and Delivery Process; Pain Management; Symptoms to Report; Treatment Plan; Medication; Diagnosis; Nutrition; Equipment; Infant Care (04/26/2016 05:00:Suri Rascon RN) DOMESTIC VIOLANCE SCREENING Dom Viol Threatened/Hurt: No (04/26/2016 05:00:Suri Rascon RN) Hx of Abuse/Neglect past 2yrs: No (04/26/2016 05:00:Suri Rascon RN) Feel Unsafe Going Home: No (04/26/2016 05:00:Suri Rascon RN) Addt'l Observ Indicating Abuse: No (04/26/2016 05:00:Suri Rascon RN) Reason Unable to Complete Screen: N/A, Screen Completed (04/26/2016 05:00:Suri Rascon RN) Considered Personal Harm/Suicide: No (04/26/2016 05:00:Suri Rascon RN) NUTRITIONAL/FUNCTIONAL SCREENING Problem with Appetite >5 Days: No (04/26/2016 05:00:Suri Rascon RN) Chew/Swallow Difficulties: No (04/26/2016 05:00:Suri Rascon RN) Inappropriate Wt Gain/Loss: No (04/26/2016 05:00:Suri Rascon RN) Presence Skin Breakdown/Ulcer: No (04/26/2016 05:00:Suri Rascon RN) Special Diet: No (04/26/2016 05:00:Suri Rascon RN) Pt Requests Insurance Loss Control Surveyor Visit: No (04/26/2016 05:00:Suri Rascon RN) Hx of Any of the Following?: N/A (04/26/2016 05:00:Suri Rascon RN) New Diagnosis of: N/A (04/26/2016 05:00:Suri Rascon RN) Requires Assist w/Ambulation: No (04/26/2016 05:00:Suri Rascon RN) Uses Assist Device to Ambulate: No (04/26/2016 05:00:Suri Rascon RN) Pt Requires Help w/ADL's: No (04/26/2016 05:00:Suri Rascon RN)
--- NOTE | 2016-05-03 06:26 | L&D General Admission ---
General Admit Datetime Report Generated by CPN: 05/03/2016 06:00 INFORMATION Patient Age: 20 (04/25/2016 16:49:QS system process) EDC: 04/19/2016 00:00 (04/26/2016 03:15:Nhi Ayala RN) : 1 (04/26/2016 03:15:Nhi Ayala RN) Para: 0 (04/26/2016 03:15:Nhi Ayala RN) Term: 0 (04/26/2016 03:15:Nhi Ayala RN) : 0 (04/26/2016 03:15:Nhi Ayala RN) Spontaneous Abortions: 0 (04/26/2016 03:15:Nhi Ayala RN) Induced Abortions: 0 (04/26/2016 03:15:Nhi Ayala RN) Livin (04/26/2016 03:15:Nhi Ayala RN) Baby, Number in Womb: 1 (04/26/2016 03:15:Nhi Ayala RN) CARE Primary Laboratory Technician: [facility] (04/26/2016 03:15:Suri Rascon RN) Adequate Care: Yes (04/26/2016 03:15:Suri Rascon RN) Prepregnancy Weight (lb): 150 (04/26/2016 03:15:Suri Rascon RN) Prepregnancy Weight (kg): 68.2 (04/26/2016 03:15:QS system process) Height (in): 65 (04/26/2016 10:15:QS system process) ALLERGIES Medication Allergy: Yes (04/26/2016 03:15:Rhoda Kim RN) Medication Allergies: Cephalosporins (04/26/2016) (04/26/2016 10:15:QS system process) Latex Allergy: Unknown (04/26/2016 03:15:Suri Rascon RN) COMMUNICATION Primary Language: Danish (04/26/2016 03:15:Rhoda Kim RN) Medical Tx Preferred Language: Danish (04/26/2016 03:15:Suri Rascon RN) Communication Barrier(s): None (04/26/2016 03:15:Rhoda Kim RN) DEMOGRAPHICS Address: [address] [place] [id number] (04/25/2016 16:49:QS system process) Zipcode: [id number] (04/25/2016 16:49:QS system process) Home (04/25/2016 16:49:QS system process) SSN: [id number] (04/25/2016 16:49:QS system process) Next of Kin Name: YOSVANY CHERY (04/25/2016 16:49:QS system process) Next of Kin (04/25/2016 16:49:QS system process) Next of Kin Relationship: OR (04/25/2016 16:49:QS system process) Date of : 1995 (04/25/2016 16:49:QS system process) Marital Status: Single (04/25/2016 16:49:QS system process) Sex: Female (04/25/2016 16:49:QS system process) Race: (04/25/2016 16:49:QS system process) Ethnicity: Non- or (04/25/2016 16:49:QS system process) Shinto: None (04/26/2016 08:12:QS system process) DRUG AND ALCOHOL USE Alcohol: No (04/26/2016 03:15:Suri Rascon RN) Cigarettes: Never Smoker. [id number] (04/26/2016 03:15:Suri Rascon RN) Marijuana: No (04/26/2016 03:15:Suri Rascon RN) Cocaine: No (04/26/2016 03:15:Suri Rascon RN) Other Illicit Drugs: No (04/26/2016 03:15:Suri Rascon RN) VACCINE HISTORY Influenza Vaccine: No (04/26/2016 03:15:Suri Rascon RN) Pneumococcal Vaccine: No (04/26/2016 03:15:Suri Rascon RN) Tetanus Vaccine: Yes (04/26/2016 03:15:Suri Rascon RN) Tdap Vaccine: Yes (04/26/2016 03:15:Suri Rascon RN) Hepatitis B Vaccine: Yes (04/26/2016 03:15:Suri Rascon RN) Soda Fountain Operator: Other (04/26/2016 03:15:Suri Rascon RN) Feeding Preference: Breast (04/26/2016 03:15:Suri Rascon RN) Benefit of Breast Feed Discussed: Yes (04/26/2016 03:15:Suri Rascon RN) Circumcision: Yes (04/26/2016 03:15:Suri Rascon RN) Classes Attended: No (04/26/2016 03:15:Suri Rascon RN) Tubal Ligation: No (04/26/2016 03:15:Suri Rascon RN) Tubal Authorization Signed: N/A (04/26/2016 03:15:Suri Rascon RN) Consent: N/A (04/26/2016 03:15:Suri Rascon RN) Consent Signed: N/A (04/26/2016 03:15:Suri Rascon RN) Pain Management Plans: Epidural (04/26/2016 03:15:Suri Rascon RN) Plans for Labor and Delivery: None (04/26/2016 03:15:Suri Rascon RN) Support Person: Rubin Chery (04/26/2016 03:15:Suri Rascon RN) Support Person Relationship: Significant Other (04/26/2016 03:15:Suri Rascon RN) Other Relationship: Boyfriend (04/26/2016 03:15:Suri Rascon RN) Cultural/Spritual Practice: No (04/26/2016 03:15:Suri Rascon RN) Spir/Cult Dietary Needs: No (04/26/2016 03:15:Suri Rascon RN) LIVING SITUATION/DISCHARGE PLAN Living Arrangements: House (04/26/2016 03:15:Suri Rascon RN) Adequate Access to:: Electric; Heat; Refrigeration; Plumbing/Running water; Phone; Transportation (04/26/2016 03:15:Suri Rascon RN) WIC Program: Yes (04/26/2016 03:15:Suri Rascon RN) Discharge Medical Insurance Coding Specialist Person: Rubin Chery (04/26/2016 03:15:Suri Rascon RN) Person to Help after Discharge: Rubin Chery (04/26/2016 03:15:Suri Rascon RN) Currently Using Commun Resources: Yes (04/26/2016 03:15:Suri Rascon RN) Car Seat for Discharge: Yes (04/26/2016 03:15:Suri Rascon RN) Adoption Requested: No (04/26/2016 03:15:Suri Rascon RN) Pt Contact w/ Post : N/A (04/26/2016 03:15:Suri Rascon RN) LABS Blood Type: O Positive (04/26/2016 03:15:Nhi Ayala RN) Antibody Screen: negative (04/26/2016 03:15:Nhi Ayala RN) Hemoglobin: 12.6 (04/27/2016 06:58:QS system process) Hematocrit: 35.5 L (04/27/2016 06:58:QS system process) MCV: 94 (04/27/2016 06:58:QS system process) Group Beta Strep: negative (04/26/2016 03:15:Nhi Ayala RN) Gonorrhea: Negative (04/26/2016 03:15:Nhi Ayala RN) Chlamydia: Negative (04/26/2016 03:15:Nhi Ayala RN) RPR/VDRL: Nonreactive (04/26/2016 03:15:Nhi Ayala RN) HIV Results: nonreactive (04/26/2016 03:15:Nhi Ayala RN) Hepatitis B: Negative (04/26/2016 03:15:Nhi Ayala RN) Rubella: Immune (04/26/2016 03:15:Nhi Ayala RN) Varicella: Non Susceptible (04/26/2016 03:15:Nhi Ayala RN) OB/PREVIOUS HISTORY History of Previous : No (04/26/2016 03:15:Suri Rascon RN) History of Gestational Diabetes: No (04/26/2016 03:15:Suri Rascon RN) History of PIH: No (04/26/2016 03:15:Suri Rascon RN) History of Incompetent Cervix: No (04/26/2016 03:15:Suri Rascon RN) History of Placenta Previa/Abrup: No (04/26/2016 03:15:Suri Rascon RN) History of Macrosomia: No (04/26/2016 03:15:Suri Rascon RN) History of IUGR: No (04/26/2016 03:15:Suri Rascon RN) History of Hemorrhage: No (04/26/2016 03:15:Suri Rascon RN) History of Loss/Stillborn: No (04/26/2016 03:15:Suri Rascon RN) History of : No (04/26/2016 03:15:Suri Rascon RN) History of D (Rh) Sensitization: No (04/26/2016 03:15:Suri Rascon RN) History Recurrent Loss/Stillborn: No (04/26/2016 03:15:Suri Rascon RN) History Depression/PP Depression: No (04/26/2016 03:15:Suri Rascon RN) History of Uterine Anomaly/MORRO: No (04/26/2016 03:15:Suri Rascon RN) History of Infertility: No (04/26/2016 03:15:Suri Rascon RN) History of ART Treatment: No (04/26/2016 03:15:Suri Rascon RN) History of MORRO: No (04/26/2016 03:15:Suri Rascon RN) Comments Obstetrical History: G1: Current (04/26/2016 03:15:Suri Rascon RN) MEDICAL HISTORY Med Hx Diabetes: No (04/26/2016 03:15:Suri Rascon RN) Med Hx Hypertension: No (04/26/2016 03:15:Suri Rascon RN) Med Hx Heart Disease: No (04/26/2016 03:15:Suri Rascon RN) Med Hx Autoimmune Disorder: No (04/26/2016 03:15:Suri Rascon RN) Med Hx Kidney Disease/UTI: No (04/26/2016 03:15:Suri Rascon RN) Med Hx Neurologic/Epilepsy: No (04/26/2016 03:15:uSri Rascon RN) Med Hx Psychiatric Disorders: No (04/26/2016 03:15:Suri Rascon RN) Med Hx Hepatitis/Liver Disease: No (04/26/2016 03:15:uSri Rascon RN) Med Hx Varicosities/Phlebitis: No (04/26/2016 03:15:Suri Rascon RN) Med Hx Thyroid Dysfunction: No (04/26/2016 03:15:Suri Rascon RN) Med Hx Trauma/Violence: No (04/26/2016 03:15:Suri Rascon RN) Med Hx Blood Transfusion: No (04/26/2016 03:15:Suri Rascon RN) Med Hx Pulmonary (Asthma,TB): No (04/26/2016 03:15:Suri Rascon RN) Med Hx Breast: No (04/26/2016 03:15:Suri Rascon RN) Med Hx E LEARNING MANAGER Surgery: No (04/26/2016 03:15:Suri Rascon RN) Med Hx Hospitalization/Surgery: Yes (04/26/2016 03:15:Suri Rascon RN) Med Hx Anesthetic Complications: No (04/26/2016 03:15:Suri Rascon RN) Med Hx Abnormal Pap Smear: No (04/26/2016 03:15:Suri Rascon RN) Other Medical Diseases: No (04/26/2016 03:15:Suri Rascon RN) Med Hx Significant Family Hx: No (04/26/2016 03:15:Suri Rascon RN) Details of 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 (04/26/2016 03:15:Suri Rascon RN) INFECTIOUS HISTORY Inf Hx Gonorrhea: No (04/26/2016 03:15:Suri Rascon RN) Inf Hx Chlamydia: No (04/26/2016 03:15:Suri Rascon RN) Inf Hx Syphilis: No (04/26/2016 03:15:Suri Rascon RN) Inf Hx HIV/AIDS: No (04/26/2016 03:15:Suri Rascon RN) Inf Hx Human Papilloma Virus: No (04/26/2016 03:15:Suri Rascon RN) Inf Hx Pt/Partner Genital Herpes: No (04/26/2016 03:15:Suri Rascon RN) Inf Hx Tuberculosis/Exposure: No (04/26/2016 03:15:Suri Rascon RN) Inf Hx Hepatitis B,C: No (04/26/2016 03:15:Suri Rascon RN) Inf Hx Rash or Viral Illness: No (04/26/2016 03:15:Suri Rascon RN) GENETIC HISTORY Gen Hx Age >=35 at RONNY: No (04/26/2016 03:15:Suri Rascon RN) Gen Hx Thalassemia: No (04/26/2016 03:15:Suri Rascon RN) Gen Hx Congenital Heart Defect: No (04/26/2016 03:15:Suri Rascon RN) Gen Hx Neural Tube Defect: No (04/26/2016 03:15:Suri Rascon RN) Gen Hx Down's Syndrome: No (04/26/2016 03:15:Suri Rascon RN) Gen Hx Todd-Sachs: No (04/26/2016 03:15:Suri Rascon RN) Gen Hx Danis: No (04/26/2016 03:15:Suri Rascon RN) Gen Hx Familial Dysautonomia: No (04/26/2016 03:15:Suri Rascon RN) Gen Hx Sickle Cell Disease/Trait: No (04/26/2016 03:15:Suri Rascon RN) Gen Hx Hemophilia/Blood Disorder: No (04/26/2016 03:15:Suri Rascon RN) Gen Hx Muscular Dystrophy: No (04/26/2016 03:15:Suri Rascon RN) Gen Hx Cystic Fibrosis: No (04/26/2016 03:15:Suri Rascon RN) Gen Hx Huntingtons Chorea: No (04/26/2016 03:15:Suri Rascon RN) Gen Hx Mental Retardation/Autism: No (04/26/2016 03:15:Suri Rascon RN) Gen Hx Tested for Fragile X: No (04/26/2016 03:15:Suri Rascon RN) Gen Hx Other Inher/Chromosomal: No (04/26/2016 03:15:Suri Rascon RN) Gen Hx Maternal Metabolic DO: No (04/26/2016 03:15:Suri Rascon RN) Gen Hx Pt Father or FOB Defect: No (04/26/2016 03:15:Suri Rascon RN) Gen Hx Other Genetic History: No (04/26/2016 03:15:Suri Rascon RN) Gen Hx Drugs/Meds since LMP: Yes (04/26/2016 03:15:Suri Rascon RN) Gen Hx Medications: PNV (04/26/2016 03:15:Suri Rascon RN)
--- NOTE | 2016-05-04 06:27 | L&D Current Admission ---
Current Admit Datetime Report Generated by CPN: 05/04/2016 06:00 ADMISSION INFORMATION Current Admit Date/Time: 04/26/2016 05:00 (04/26/2016 05:00:Suri Rascon RN) Reason for Admission: Rupture of Membranes; Induction of Labor (04/26/2016 05:00:Suri Rascon RN) Other Reason for Admission: Pt scheduled for induction 04/26/16, SROM at 0330 (04/26/2016 05:00:Suri Rascon RN) Chief Complaint: Suspected Rupture of Membranes (04/26/2016 05:00:Suri Rascon RN) Medications During : Vitamin (04/26/2016 05:00:Suri Rascon RN) EGA per Dates: 41.0 (04/26/2016 05:00:QS system process) Admitted From: Home (04/26/2016 05:00:Suri Rascon RN) Reason for Induction: Postterm (04/26/2016 05:00:Suri Rascon RN) Records Available: Yes (04/26/2016 05:00:Suri Rascon RN) General Admission Information: Reviewed; Updated; Confirmed (04/26/2016 05:00:Suri Rascon RN) General Admission Reviewed By: Jasmin Rascon RN (04/26/2016 05:00:Suri Rascon RN) BELONGINGS/ADVANCED DIRECTIVES Other Belongings: see [facility] belongings form (04/26/2016 05:00:Suri Rascon RN) Advance Direct for Healthcare: No, and Wants No Information (04/26/2016 05:00:Suri Rascon RN) Durable Power of Formula Mixer: No (04/26/2016 05:00:Suri Rascon RN) Living Will: No (04/26/2016 05:00:Suri Rascon RN) Organ Donor: Yes (04/26/2016 05:00:Suri Rascon RN) Pt Rights Information Given: Yes (04/26/2016 05:00:Suri Rascon RN) Pt Understands Pt Rights: No (04/26/2016 05:00:Suri Rascon RN) LEARNING ASSESSMENT Knowledge Level: Understands L_D Process (04/26/2016 05:00:Suri Rascon RN) Barriers to Learning: Emotional State; Pain (04/26/2016 05:00:Suri aRscon RN) Learning Readiness: Motivated (04/26/2016 05:00:Suri Rascon RN) Learns Best By: 1 to 1 Instruction (04/26/2016 05:00:Suri Rascon RN) Learning Needs: Labor and Delivery Process; Pain Management; Symptoms to Report; Treatment Plan; Medication; Diagnosis; Nutrition; Equipment; Infant Care (04/26/2016 05:00:Suri Rascon RN) DOMESTIC VIOLANCE SCREENING Dom Viol Threatened/Hurt: No (04/26/2016 05:00:Suri Rascon RN) Hx of Abuse/Neglect past 2yrs: No (04/26/2016 05:00:Suri Rascon RN) Feel Unsafe Going Home: No (04/26/2016 05:00:Suri Rascon RN) Addt'l Observ Indicating Abuse: No (04/26/2016 05:00:Suri Rascon RN) Reason Unable to Complete Screen: N/A, Screen Completed (04/26/2016 05:00:Suri Rascon RN) Considered Personal Harm/Suicide: No (04/26/2016 05:00:Suri Rascon RN) NUTRITIONAL/FUNCTIONAL SCREENING Problem with Appetite >5 Days: No (04/26/2016 05:00:Suri Rascon RN) Chew/Swallow Difficulties: No (04/26/2016 05:00:Suri Rascon RN) Inappropriate Wt Gain/Loss: No (04/26/2016 05:00:Suri Rascon RN) Presence Skin Breakdown/Ulcer: No (04/26/2016 05:00:Suri Rascon RN) Special Diet: No (04/26/2016 05:00:Suri Rascon RN) Pt Requests Multimedia Editor Visit: No (04/26/2016 05:00:Suri Rascon RN) Hx of Any of the Following?: N/A (04/26/2016 05:00:Suri Rascon RN) New Diagnosis of: N/A (04/26/2016 05:00:Suri Rascon RN) Requires Assist w/Ambulation: No (04/26/2016 05:00:Suri Rascon RN) Uses Assist Device to Ambulate: No (04/26/2016 05:00:Suri Rascon RN) Pt Requires Help w/ADL's: No (04/26/2016 05:00:Suri Rascon RN)
--- NOTE | 2016-05-04 06:27 | L&D General Admission ---
General Admit Datetime Report Generated by CPN: 05/04/2016 06:00 INFORMATION Patient Age: 20 (04/25/2016 16:49:QS system process) EDC: 04/19/2016 00:00 (04/26/2016 03:15:Nhi Ayala RN) : 1 (04/26/2016 03:15:Nhi Ayala RN) Para: 0 (04/26/2016 03:15:Nih Ayala RN) Term: 0 (04/26/2016 03:15:Nhi Ayala RN) : 0 (04/26/2016 03:15:Nhi Ayala RN) Spontaneous Abortions: 0 (04/26/2016 03:15:Nhi Ayala RN) Induced Abortions: 0 (04/26/2016 03:15:Nhi Ayala RN) Livin (04/26/2016 03:15:Nhi Ayala RN) Baby, Number in Womb: 1 (04/26/2016 03:15:Nhi Ayala RN) CARE Primary Director Regulatory Agency: [facility] (04/26/2016 03:15:Suri Rascon RN) Adequate Care: Yes (04/26/2016 03:15:Suri Rascon RN) Prepregnancy Weight (lb): 150 (04/26/2016 03:15:Suri Rascon RN) Prepregnancy Weight (kg): 68.2 (04/26/2016 03:15:QS system process) Height (in): 65 (04/26/2016 10:15:QS system process) ALLERGIES Medication Allergy: Yes (04/26/2016 03:15:Rhoda Kim RN) Medication Allergies: Cephalosporins (04/26/2016) (04/26/2016 10:15:QS system process) Latex Allergy: Unknown (04/26/2016 03:15:Suri Rascon RN) COMMUNICATION Primary Language: Portuguese (04/26/2016 03:15:Rhoda Kim RN) Medical Tx Preferred Language: Portuguese (04/26/2016 03:15:Suri Rascon RN) Communication Barrier(s): None (04/26/2016 03:15:Rhoda Kim RN) DEMOGRAPHICS Address: [address] [place] [id number] (04/25/2016 16:49:QS system process) Zipcode: [id number] (04/25/2016 16:49:QS system process) Home (04/25/2016 16:49:QS system process) SSN: [id number] (04/25/2016 16:49:QS system process) Next of Kin Name: YOSVANY CHERY (04/25/2016 16:49:QS system process) Next of Kin (04/25/2016 16:49:QS system process) Next of Kin Relationship: OR (04/25/2016 16:49:QS system process) Date of : 1995 (04/25/2016 16:49:QS system process) Marital Status: Single (04/25/2016 16:49:QS system process) Sex: Female (04/25/2016 16:49:QS system process) Race: (04/25/2016 16:49:QS system process) Ethnicity: Non- or (04/25/2016 16:49:QS system process) Hinduism: None (04/26/2016 08:12:QS system process) DRUG AND ALCOHOL USE Alcohol: No (04/26/2016 03:15:Suri Rascon RN) Cigarettes: Never Smoker. [id number] (04/26/2016 03:15:Suri Rascon RN) Marijuana: No (04/26/2016 03:15:Suri Rascon RN) Cocaine: No (04/26/2016 03:15:Suri Rascon RN) Other Illicit Drugs: No (04/26/2016 03:15:Suri Rascon RN) VACCINE HISTORY Influenza Vaccine: No (04/26/2016 03:15:Suri Rascon RN) Pneumococcal Vaccine: No (04/26/2016 03:15:Suri Rascon RN) Tetanus Vaccine: Yes (04/26/2016 03:15:Suri Rascon RN) Tdap Vaccine: Yes (04/26/2016 03:15:Suri Rascon RN) Hepatitis B Vaccine: Yes (04/26/2016 03:15:Suri Rascon RN) Drill Foreman: Other (04/26/2016 03:15:Suri Rascon RN) Feeding Preference: Breast (04/26/2016 03:15:Suri Rascon RN) Benefit of Breast Feed Discussed: Yes (04/26/2016 03:15:Suri Rascon RN) Circumcision: Yes (04/26/2016 03:15:Suri Rascon RN) Classes Attended: No (04/26/2016 03:15:Suri Rascon RN) Tubal Ligation: No (04/26/2016 03:15:Suri Rascon RN) Tubal Authorization Signed: N/A (04/26/2016 03:15:Suri Rascon RN) Consent: N/A (04/26/2016 03:15:Suri Rascon RN) Consent Signed: N/A (04/26/2016 03:15:Suri Rascon RN) Pain Management Plans: Epidural (04/26/2016 03:15:Suri Rascon RN) Plans for Labor and Delivery: None (04/26/2016 03:15:Suri Rascon RN) Support Person: Rubin Chery (04/26/2016 03:15:Suri Rascon RN) Support Person Relationship: Significant Other (04/26/2016 03:15:Suri Rascon RN) Other Relationship: Boyfriend (04/26/2016 03:15:Suri Rascon RN) Cultural/Spritual Practice: No (04/26/2016 03:15:Suri Rascon RN) Spir/Cult Dietary Needs: No (04/26/2016 03:15:Suri Rascon RN) LIVING SITUATION/DISCHARGE PLAN Living Arrangements: House (04/26/2016 03:15:Suri Rascon RN) Adequate Access to:: Electric; Heat; Refrigeration; Plumbing/Running water; Phone; Transportation (04/26/2016 03:15:Suri Rascon RN) WIC Program: Yes (04/26/2016 03:15:Suri Rascon RN) Discharge Chick Sexer Person: Rubin Chery (04/26/2016 03:15:Suri Rascon RN) Person to Help after Discharge: Rubin Chery (04/26/2016 03:15:Suri Rascon RN) Currently Using Commun Resources: Yes (04/26/2016 03:15:Suri Rascon RN) Car Seat for Discharge: Yes (04/26/2016 03:15:Suri Rascon RN) Adoption Requested: No (04/26/2016 03:15:Suri Rascon RN) Pt Contact w/ Post : N/A (04/26/2016 03:15:Suri Rascon RN) LABS Blood Type: O Positive (04/26/2016 03:15:Nhi Ayala RN) Antibody Screen: negative (04/26/2016 03:15:Nhi Ayala RN) Hemoglobin: 12.6 (04/27/2016 06:58:QS system process) Hematocrit: 35.5 L (04/27/2016 06:58:QS system process) MCV: 94 (04/27/2016 06:58:QS system process) Group Beta Strep: negative (04/26/2016 03:15:Nhi Ayala RN) Gonorrhea: Negative (04/26/2016 03:15:Nhi Ayala RN) Chlamydia: Negative (04/26/2016 03:15:Nhi Ayala RN) RPR/VDRL: Nonreactive (04/26/2016 03:15:Nhi Ayala RN) HIV Results: nonreactive (04/26/2016 03:15:Nhi Ayaal RN) Hepatitis B: Negative (04/26/2016 03:15:Nhi Ayala RN) Rubella: Immune (04/26/2016 03:15:Nhi Aayla RN) Varicella: Non Susceptible (04/26/2016 03:15:Nhi Ayala RN) OB/PREVIOUS HISTORY History of Previous : No (04/26/2016 03:15:Suri Rascon RN) History of Gestational Diabetes: No (04/26/2016 03:15:Suri Rascon RN) History of PIH: No (04/26/2016 03:15:Suri Rascon RN) History of Incompetent Cervix: No (04/26/2016 03:15:Suri Rascon RN) History of Placenta Previa/Abrup: No (04/26/2016 03:15:Suri Rascon RN) History of Macrosomia: No (04/26/2016 03:15:Suri Rascno RN) History of IUGR: No (04/26/2016 03:15:Suri Rascon RN) History of Hemorrhage: No (04/26/2016 03:15:Suri Rascon RN) History of Loss/Stillborn: No (04/26/2016 03:15:Suri Rascon RN) History of : No (04/26/2016 03:15:Suri Rascon RN) History of D (Rh) Sensitization: No (04/26/2016 03:15:Suri Rascon RN) History Recurrent Loss/Stillborn: No (04/26/2016 03:15:Suri Rascon RN) History Depression/PP Depression: No (04/26/2016 03:15:Suri Rascon RN) History of Uterine Anomaly/MORRO: No (04/26/2016 03:15:Suri Rascon RN) History of Infertility: No (04/26/2016 03:15:Suri Rascon RN) History of ART Treatment: No (04/26/2016 03:15:Suri Rascon RN) History of MORRO: No (04/26/2016 03:15:Suri Rascon RN) Comments Obstetrical History: G1: Current (04/26/2016 03:15:Suri Rascon RN) MEDICAL HISTORY Med Hx Diabetes: No (04/26/2016 03:15:Suri Rascon RN) Med Hx Hypertension: No (04/26/2016 03:15:Suri Rascon RN) Med Hx Heart Disease: No (04/26/2016 03:15:Suri Rascon RN) Med Hx Autoimmune Disorder: No (04/26/2016 03:15:Suri Rascon RN) Med Hx Kidney Disease/UTI: No (04/26/2016 03:15:Suri Rascon RN) Med Hx Neurologic/Epilepsy: No (04/26/2016 03:15:Suri Rascon RN) Med Hx Psychiatric Disorders: No (04/26/2016 03:15:Suri Rascon RN) Med Hx Hepatitis/Liver Disease: No (04/26/2016 03:15:Suri Rascon RN) Med Hx Varicosities/Phlebitis: No (04/26/2016 03:15:Suri Rascon RN) Med Hx Thyroid Dysfunction: No (04/26/2016 03:15:Suri Rascon RN) Med Hx Trauma/Violence: No (04/26/2016 03:15:Suri Rascon RN) Med Hx Blood Transfusion: No (04/26/2016 03:15:Suri Rascon RN) Med Hx Pulmonary (Asthma,TB): No (04/26/2016 03:15:Suri Rascon RN) Med Hx Breast: No (04/26/2016 03:15:Suri Rascon RN) Med Hx OXYHYDROGEN WELDER Surgery: No (04/26/2016 03:15:Suri Racson RN) Med Hx Hospitalization/Surgery: Yes (04/26/2016 03:15:Suri Rascon RN) Med Hx Anesthetic Complications: No (04/26/2016 03:15:Suri Rascon RN) Med Hx Abnormal Pap Smear: No (04/26/2016 03:15:Suri Rascon RN) Other Medical Diseases: No (04/26/2016 03:15:Suri Rascon RN) Med Hx Significant Family Hx: No (04/26/2016 03:15:Suri Rascon RN) Details of 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 (04/26/2016 03:15:Suri Rascon RN) INFECTIOUS HISTORY Inf Hx Gonorrhea: No (04/26/2016 03:15:Suri Rascon RN) Inf Hx Chlamydia: No (04/26/2016 03:15:Suri Rascon RN) Inf Hx Syphilis: No (04/26/2016 03:15:Suri Rascon RN) Inf Hx HIV/AIDS: No (04/26/2016 03:15:Suri Rascon RN) Inf Hx Human Papilloma Virus: No (04/26/2016 03:15:Suri Rascon RN) Inf Hx Pt/Partner Genital Herpes: No (04/26/2016 03:15:Suri Rascon RN) Inf Hx Tuberculosis/Exposure: No (04/26/2016 03:15:Suri Rascon RN) Inf Hx Hepatitis B,C: No (04/26/2016 03:15:Suri Rascon RN) Inf Hx Rash or Viral Illness: No (04/26/2016 03:15:Suri Rascon RN) GENETIC HISTORY Gen Hx Age >=35 at RONNY: No (04/26/2016 03:15:Suri Rascon RN) Gen Hx Thalassemia: No (04/26/2016 03:15:Suri Rascon RN) Gen Hx Congenital Heart Defect: No (04/26/2016 03:15:Suri Rascon RN) Gen Hx Neural Tube Defect: No (04/26/2016 03:15:Suri Rascon RN) Gen Hx Down's Syndrome: No (04/26/2016 03:15:Suri Rascon RN) Gen Hx Todd-Sachs: No (04/26/2016 03:15:Suri Rascon RN) Gen Hx Danis: No (04/26/2016 03:15:Suri Rascon RN) Gen Hx Familial Dysautonomia: No (04/26/2016 03:15:Suri Rascon RN) Gen Hx Sickle Cell Disease/Trait: No (04/26/2016 03:15:Suri Rascon RN) Gen Hx Hemophilia/Blood Disorder: No (04/26/2016 03:15:Suri Rascon RN) Gen Hx Muscular Dystrophy: No (04/26/2016 03:15:Suri Rascon RN) Gen Hx Cystic Fibrosis: No (04/26/2016 03:15:Suri Rascon RN) Gen Hx Huntingtons Chorea: No (04/26/2016 03:15:Suri Rascon RN) Gen Hx Mental Retardation/Autism: No (04/26/2016 03:15:Suri Rascon RN) Gen Hx Tested for Fragile X: No (04/26/2016 03:15:Suri Rascon RN) Gen Hx Other Inher/Chromosomal: No (04/26/2016 03:15:Suri Rascon RN) Gen Hx Maternal Metabolic DO: No (04/26/2016 03:15:Suri Rascon RN) Gen Hx Pt Father or FOB Defect: No (04/26/2016 03:15:Suri Rascon RN) Gen Hx Other Genetic History: No (04/26/2016 03:15:Suri Rascon RN) Gen Hx Drugs/Meds since LMP: Yes (04/26/2016 03:15:Suri Rascon RN) Gen Hx Medications: PNV (04/26/2016 03:15:Suri Rascon RN)
--- NOTE | 2016-05-05 06:23 | L&D General Admission ---
General Admit Datetime Report Generated by CPN: 05/05/2016 06:00 INFORMATION Patient Age: 20 (04/25/2016 16:49:QS system process) EDC: 04/19/2016 00:00 (04/26/2016 03:15:Nhi Ayala RN) : 1 (04/26/2016 03:15:Nhi Ayala RN) Para: 0 (04/26/2016 03:15:Nhi Ayala RN) Term: 0 (04/26/2016 03:15:Nhi Ayala RN) : 0 (04/26/2016 03:15:Nhi Ayala RN) Spontaneous Abortions: 0 (04/26/2016 03:15:Nih Ayala RN) Induced Abortions: 0 (04/26/2016 03:15:Nhi Ayala RN) Livin (04/26/2016 03:15:Nhi Ayala RN) Baby, Number in Womb: 1 (04/26/2016 03:15:Nhi Ayala RN) CARE Primary Supervisor [employer]umping [employer]: [facility] (04/26/2016 03:15:Suri Rascon RN) Adequate Care: Yes (04/26/2016 03:15:Suri Rascon RN) Prepregnancy Weight (lb): 150 (04/26/2016 03:15:Suri Rascon RN) Prepregnancy Weight (kg): 68.2 (04/26/2016 03:15:QS system process) Height (in): 65 (04/26/2016 10:15:QS system process) ALLERGIES Medication Allergy: Yes (04/26/2016 03:15:Rhoda Kim RN) Medication Allergies: Cephalosporins (04/26/2016) (04/26/2016 10:15:QS system process) Latex Allergy: Unknown (04/26/2016 03:15:Suri Rascon RN) COMMUNICATION Primary Language: Danish (04/26/2016 03:15:Rhoda Kim RN) Medical Tx Preferred Language: Danish (04/26/2016 03:15:Suri Rascon RN) Communication Barrier(s): None (04/26/2016 03:15:Rhoda Kim RN) DEMOGRAPHICS Address: [address] [place] [id number] (04/25/2016 16:49:QS system process) Zipcode: [phone] (04/25/2016 16:49:QS system process) Home (04/25/2016 16:49:QS system process) SSN: [id number] (04/25/2016 16:49:QS system process) Next of Kin Name: YOSVANY CHERY (04/25/2016 16:49:QS system process) Next of Kin (04/25/2016 16:49:QS system process) Next of Kin Relationship: OR (04/25/2016 16:49:QS system process) Date of : 1995 (04/25/2016 16:49:QS system process) Marital Status: Single (04/25/2016 16:49:QS system process) Sex: Female (04/25/2016 16:49:QS system process) Race: (04/25/2016 16:49:QS system process) Ethnicity: Non- or (04/25/2016 16:49:QS system process) Orthodox: None (04/26/2016 08:12:QS system process) DRUG AND ALCOHOL USE Alcohol: No (04/26/2016 03:15:Suri Rascon RN) Cigarettes: Never Smoker. [id number] (04/26/2016 03:15:Suri Rascon RN) Marijuana: No (04/26/2016 03:15:Suri Rascon RN) Cocaine: No (04/26/2016 03:15:Suri Rascon RN) Other Illicit Drugs: No (04/26/2016 03:15:Suri Rascon RN) VACCINE HISTORY Influenza Vaccine: No (04/26/2016 03:15:Suri Rascon RN) Pneumococcal Vaccine: No (04/26/2016 03:15:Suri Rascon RN) Tetanus Vaccine: Yes (04/26/2016 03:15:Suri Rascon RN) Tdap Vaccine: Yes (04/26/2016 03:15:Suri Rascon RN) Hepatitis B Vaccine: Yes (04/26/2016 03:15:Suri Rascon RN) Mine Engineering Manager: Other (04/26/2016 03:15:Suri Rascon RN) Feeding Preference: Breast (04/26/2016 03:15:Suri Rascon RN) Benefit of Breast Feed Discussed: Yes (04/26/2016 03:15:Suri Rascon RN) Circumcision: Yes (04/26/2016 03:15:Suri Rascon RN) Classes Attended: No (04/26/2016 03:15:Suri Rascon RN) Tubal Ligation: No (04/26/2016 03:15:Suri Rascon RN) Tubal Authorization Signed: N/A (04/26/2016 03:15:Suri Rascon RN) Consent: N/A (04/26/2016 03:15:Suri Rascon RN) Consent Signed: N/A (04/26/2016 03:15:Suri Rascon RN) Pain Management Plans: Epidural (04/26/2016 03:15:Suri Rascon RN) Plans for Labor and Delivery: None (04/26/2016 03:15:Suri Rascon RN) Support Person: Rubin Chery (04/26/2016 03:15:Suri Rascon RN) Support Person Relationship: Significant Other (04/26/2016 03:15:Suri Rascon RN) Other Relationship: Boyfriend (04/26/2016 03:15:Suri Rascon RN) Cultural/Spritual Practice: No (04/26/2016 03:15:Suri Rascon RN) Spir/Cult Dietary Needs: No (04/26/2016 03:15:Suri Rascon RN) LIVING SITUATION/DISCHARGE PLAN Living Arrangements: House (04/26/2016 03:15:Suri Rascon RN) Adequate Access to:: Electric; Heat; Refrigeration; Plumbing/Running water; Phone; Transportation (04/26/2016 03:15:Suri Rascon RN) WIC Program: Yes (04/26/2016 03:15:Suri Rascon RN) Discharge Concrete Handler Person: Rubin Chery (04/26/2016 03:15:Suri Rascon RN) Person to Help after Discharge: Rubin Chery (04/26/2016 03:15:Suri Rascon RN) Currently Using Commun Resources: Yes (04/26/2016 03:15:Suri Rascon RN) Car Seat for Discharge: Yes (04/26/2016 03:15:Suri Rascon RN) Adoption Requested: No (04/26/2016 03:15:Suri Rascon RN) Pt Contact w/ Post : N/A (04/26/2016 03:15:Suri Rascon RN) LABS Blood Type: O Positive (04/26/2016 03:15:Nhi Ayala RN) Antibody Screen: negative (04/26/2016 03:15:Nhi Ayala RN) Hemoglobin: 12.6 (04/27/2016 06:58:QS system process) Hematocrit: 35.5 L (04/27/2016 06:58:QS system process) MCV: 94 (04/27/2016 06:58:QS system process) Group Beta Strep: negative (04/26/2016 03:15:Nhi Ayala RN) Gonorrhea: Negative (04/26/2016 03:15:Nhi Ayala RN) Chlamydia: Negative (04/26/2016 03:15:Nhi Ayala RN) RPR/VDRL: Nonreactive (04/26/2016 03:15:Nhi Ayala RN) HIV Results: nonreactive (04/26/2016 03:15:Nhi Ayala RN) Hepatitis B: Negative (04/26/2016 03:15:Nhi Ayala RN) Rubella: Immune (04/26/2016 03:15:Nhi Ayala RN) Varicella: Non Susceptible (04/26/2016 03:15:Nhi Ayala RN) OB/PREVIOUS HISTORY History of Previous : No (04/26/2016 03:15:Suri Rascon RN) History of Gestational Diabetes: No (04/26/2016 03:15:Suri Rascon RN) History of PIH: No (04/26/2016 03:15:Suri Rascon RN) History of Incompetent Cervix: No (04/26/2016 03:15:Suri Rascon RN) History of Placenta Previa/Abrup: No (04/26/2016 03:15:Suri Rascon RN) History of Macrosomia: No (04/26/2016 03:15:Suri Rascon RN) History of IUGR: No (04/26/2016 03:15:Suri Rascon RN) History of Hemorrhage: No (04/26/2016 03:15:Suri Rascon RN) History of Loss/Stillborn: No (04/26/2016 03:15:Suri Rascon RN) History of : No (04/26/2016 03:15:Suri Rascon RN) History of D (Rh) Sensitization: No (04/26/2016 03:15:Suri Rascon RN) History Recurrent Loss/Stillborn: No (04/26/2016 03:15:Suri Rascon RN) History Depression/PP Depression: No (04/26/2016 03:15:Suri Rascon RN) History of Uterine Anomaly/MORRO: No (04/26/2016 03:15:Suri Rascon RN) History of Infertility: No (04/26/2016 03:15:Suri Rascon RN) History of ART Treatment: No (04/26/2016 03:15:Suri Rascon RN) History of MORRO: No (04/26/2016 03:15:Suri Rascon RN) Comments Obstetrical History: G1: Current (04/26/2016 03:15:Suri Rascon RN) MEDICAL HISTORY Med Hx Diabetes: No (04/26/2016 03:15:Suri Rascon RN) Med Hx Hypertension: No (04/26/2016 03:15:Suri Rascon RN) Med Hx Heart Disease: No (04/26/2016 03:15:Suri Rascon RN) Med Hx Autoimmune Disorder: No (04/26/2016 03:15:Suri Rascon RN) Med Hx Kidney Disease/UTI: No (04/26/2016 03:15:Suri Rascon RN) Med Hx Neurologic/Epilepsy: No (04/26/2016 03:15:Suri Rascon RN) Med Hx Psychiatric Disorders: No (04/26/2016 03:15:Suri Rascon RN) Med Hx Hepatitis/Liver Disease: No (04/26/2016 03:15:Suri Rascon RN) Med Hx Varicosities/Phlebitis: No (04/26/2016 03:15:Suri Rascon RN) Med Hx Thyroid Dysfunction: No (04/26/2016 03:15:Suri Rascon RN) Med Hx Trauma/Violence: No (04/26/2016 03:15:Suri Rascon RN) Med Hx Blood Transfusion: No (04/26/2016 03:15:Suri Racson RN) Med Hx Pulmonary (Asthma,TB): No (04/26/2016 03:15:Suri Rascon RN) Med Hx Breast: No (04/26/2016 03:15:Suri Rascon RN) Med Hx CAR LOT ATTENDANT Surgery: No (04/26/2016 03:15:Suri Rascon RN) Med Hx Hospitalization/Surgery: Yes (04/26/2016 03:15:Suri Rascon RN) Med Hx Anesthetic Complications: No (04/26/2016 03:15:Suri Rascon RN) Med Hx Abnormal Pap Smear: No (04/26/2016 03:15:Suri Rascon RN) Other Medical Diseases: No (04/26/2016 03:15:Suri Rascon RN) Med Hx Significant Family Hx: No (04/26/2016 03:15:Suri Rascon RN) Details of 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 (04/26/2016 03:15:Suri Rascon RN) INFECTIOUS HISTORY Inf Hx Gonorrhea: No (04/26/2016 03:15:Suri Rascon RN) Inf Hx Chlamydia: No (04/26/2016 03:15:Suri Rascon RN) Inf Hx Syphilis: No (04/26/2016 03:15:Suri Rascon RN) Inf Hx HIV/AIDS: No (04/26/2016 03:15:Suri Rascon RN) Inf Hx Human Papilloma Virus: No (04/26/2016 03:15:Suri Rascon RN) Inf Hx Pt/Partner Genital Herpes: No (04/26/2016 03:15:Suri Rascon RN) Inf Hx Tuberculosis/Exposure: No (04/26/2016 03:15:Suri Rascon RN) Inf Hx Hepatitis B,C: No (04/26/2016 03:15:Suri Rascon RN) Inf Hx Rash or Viral Illness: No (04/26/2016 03:15:Suri Rascon RN) GENETIC HISTORY Gen Hx Age >=35 at RONNY: No (04/26/2016 03:15:Suri Rascon RN) Gen Hx Thalassemia: No (04/26/2016 03:15:Suri Rascon RN) Gen Hx Congenital Heart Defect: No (04/26/2016 03:15:Suri Rascon RN) Gen Hx Neural Tube Defect: No (04/26/2016 03:15:Suri Rascon RN) Gen Hx Down's Syndrome: No (04/26/2016 03:15:Suri Rascon RN) Gen Hx Todd-Sachs: No (04/26/2016 03:15:Suri Rascon RN) Gen Hx Danis: No (04/26/2016 03:15:Suri Rascon RN) Gen Hx Familial Dysautonomia: No (04/26/2016 03:15:Suri Rascon RN) Gen Hx Sickle Cell Disease/Trait: No (04/26/2016 03:15:Suri Rascon RN) Gen Hx Hemophilia/Blood Disorder: No (04/26/2016 03:15:Suri Rascon RN) Gen Hx Muscular Dystrophy: No (04/26/2016 03:15:Suri Rascon RN) Gen Hx Cystic Fibrosis: No (04/26/2016 03:15:Suri Rascon RN) Gen Hx Huntingtons Chorea: No (04/26/2016 03:15:Suri Rascon RN) Gen Hx Mental Retardation/Autism: No (04/26/2016 03:15:Suri Rascon RN) Gen Hx Tested for Fragile X: No (04/26/2016 03:15:Suri Rascon RN) Gen Hx Other Inher/Chromosomal: No (04/26/2016 03:15:Suri Rascon RN) Gen Hx Maternal Metabolic DO: No (04/26/2016 03:15:Suri Rascon RN) Gen Hx Pt Father or FOB Defect: No (04/26/2016 03:15:Suri Rascon RN) Gen Hx Other Genetic History: No (04/26/2016 03:15:Suri Rascon RN) Gen Hx Drugs/Meds since LMP: Yes (04/26/2016 03:15:Suri Rascon RN) Gen Hx Medications: PNV (04/26/2016 03:15:Suri Rascon RN)
--- NOTE | 2016-05-05 06:23 | L&D Current Admission ---
Current Admit Datetime Report Generated by CPN: 05/05/2016 06:00 ADMISSION INFORMATION Current Admit Date/Time: 04/26/2016 05:00 (04/26/2016 05:00:Suri Rascon RN) Reason for Admission: Rupture of Membranes; Induction of Labor (04/26/2016 05:00:Suri Rascon RN) Other Reason for Admission: Pt scheduled for induction 04/26/16, SROM at 0330 (04/26/2016 05:00:Suri Rascon RN) Chief Complaint: Suspected Rupture of Membranes (04/26/2016 05:00:Suri Rascon RN) Medications During : Vitamin (04/26/2016 05:00:Suri Rascon RN) EGA per Dates: 41.0 (04/26/2016 05:00:QS system process) Admitted From: Home (04/26/2016 05:00:Suri Rascon RN) Reason for Induction: Postterm (04/26/2016 05:00:Suri Rascon RN) Records Available: Yes (04/26/2016 05:00:Suri Rascon RN) General Admission Information: Reviewed; Updated; Confirmed (04/26/2016 05:00:Suri Rascon RN) General Admission Reviewed By: Jasmin Rascon RN (04/26/2016 05:00:Suri Rascon RN) BELONGINGS/ADVANCED DIRECTIVES Other Belongings: see [facility] belongings form (04/26/2016 05:00:Suri Rascon RN) Advance Direct for Healthcare: No, and Wants No Information (04/26/2016 05:00:uSri Rascon RN) Durable Power of Seamer Elastic Band: No (04/26/2016 05:00:Suri Rascon RN) Living Will: No (04/26/2016 05:00:Suri Rascon RN) Organ Donor: Yes (04/26/2016 05:00:Suri Rascon RN) Pt Rights Information Given: Yes (04/26/2016 05:00:Suri Rascon RN) Pt Understands Pt Rights: No (04/26/2016 05:00:Suri Rascon RN) LEARNING ASSESSMENT Knowledge Level: Understands L_D Process (04/26/2016 05:00:Suri Rascon RN) Barriers to Learning: Emotional State; Pain (04/26/2016 05:00:Suri Rascon RN) Learning Readiness: Motivated (04/26/2016 05:00:Suri Rascon RN) Learns Best By: 1 to 1 Instruction (04/26/2016 05:00:Suri Rascon RN) Learning Needs: Labor and Delivery Process; Pain Management; Symptoms to Report; Treatment Plan; Medication; Diagnosis; Nutrition; Equipment; Infant Care (04/26/2016 05:00:Suri Rascon RN) DOMESTIC VIOLANCE SCREENING Dom Viol Threatened/Hurt: No (04/26/2016 05:00:Suri Rascon RN) Hx of Abuse/Neglect past 2yrs: No (04/26/2016 05:00:Suri Rascon RN) Feel Unsafe Going Home: No (04/26/2016 05:00:Suri Rascon RN) Addt'l Observ Indicating Abuse: No (04/26/2016 05:00:Suri Rascon RN) Reason Unable to Complete Screen: N/A, Screen Completed (04/26/2016 05:00:Suri Rascon RN) Considered Personal Harm/Suicide: No (04/26/2016 05:00:Suri Rascon RN) NUTRITIONAL/FUNCTIONAL SCREENING Problem with Appetite >5 Days: No (04/26/2016 05:00:Suri Rascon RN) Chew/Swallow Difficulties: No (04/26/2016 05:00:Suri Rascon RN) Inappropriate Wt Gain/Loss: No (04/26/2016 05:00:Suri Rascon RN) Presence Skin Breakdown/Ulcer: No (04/26/2016 05:00:Suri Rascon RN) Special Diet: No (04/26/2016 05:00:Suri Rascon RN) Pt Requests Correspondence Section Supervisor Visit: No (04/26/2016 05:00:Suri Rascon RN) Hx of Any of the Following?: N/A (04/26/2016 05:00:Suri Rascon RN) New Diagnosis of: N/A (04/26/2016 05:00:Suri Rascon RN) Requires Assist w/Ambulation: No (04/26/2016 05:00:Srui Rascon RN) Uses Assist Device to Ambulate: No (04/26/2016 05:00:Suri Rascon RN) Pt Requires Help w/ADL's: No (04/26/2016 05:00:Suri Rascon RN)
== END 2016-04-28 12:58 | disposition home or self-care (01) | DRG 775 ==
LOC: LR 04:30 → 2S 11:02
PROVIDERS: ADMIT Obstetrics & Gynecology; ATTEND Obstetrics & Gynecology
PROC: 10E0XZZ Delivery of Products of Conception, External Approach (ICD-10-PCS; principal; 2016-04-26)
PROC: 0KQM0ZZ Repair Perineum Muscle, Open Approach (ICD-10-PCS; 2016-04-26)
DX: O48.0 Post-term pregnancy (principal); O62.3 Precipitate labor; O69.81X0 Labor and delivery complicated by cord around neck, without compression, not applicable or unspecified; O66.0 Obstructed labor due to shoulder dystocia; O70.0 First degree perineal laceration during delivery; O70.1 Second degree perineal laceration during delivery; Z3A.41 41 weeks gestation of pregnancy; Z37.0 Single live birth
CPT/HCPCS: 36415; 80307; 81005; 85025; 85027; 86592; 86850; 86900; 86901; J3490